=== PATIENT | female | born 1950 | race Caucasian/White ===

== ENCOUNTER → 2017-04-27 | Outpatient (CLI) | payer OTHER ==
[~2017-04-27] MED LIST: ATOR10TA88 PO; ATV1 PO; CHOL2000 PO; CLON0.5T3 PO; CLTP PO; DVN/160 PO; ESTR1CRE PV; LABE100T16 PO; LXP/10 PO; MELA3TAB7 PO; METF-384 PO; NAPR500T3 PO; NAPR550T PO; NITR1CAP32 PO; PRLSR20 PO; SYN88 PO
--- NOTE | 2017-04-27 14:15 | MAMMOGRAPHY REPORT ---
UNILATERAL RIGHT DIGITAL SCREENING MAMMOGRAM TOMOSYNTHESIS WITH CAD: 04/27/2017 CLINICAL HISTORY: Routine screening. Patient has no complaints. TECHNIQUE: Right breast tomosynthesis in addition to standard 2D mammography was performed. Current jerald bonilla was also evaluated with a Computer Aided Detection (CAD) system. COMPARISON: Comparison is made to exams dated: 04/26/2016 mammogram, 04/14/2015 mammogram, 04/12/2014 m ammogram, 03/15/2013 mammogram, 03/13/2012 mammogram, and 03/11/2011 mammogram - [facility] enter. BREAST COMPOSITION: The tissue of the right breast is heterogeneously dense, which may obscure small masses. FINDINGS: The parenchymal pattern is similar to prior exams. No developing mass, architectural dist ortion or cluster of suspicious microcalcifications is seen. IMPRESSION: ACR BI-RADS CATEGORY 2: BENIGN There is no mammographic evidence of malignancy. A 1 year screening mammogram is recommended. The pa tient will receive written notification of the results. Approximately 10% of breast cancers are not detected with mammography. A negative mammographic report should not delay biopsy if a clinically suggestive mass is present. Anuja Howard M.D. ay/:04/27/2017 13:15:47 Mold Machine Operator: Dina PILLAIR, M, [facility] letter sent: Normal 1/2 BI-RADS Code: ACR BI-RADS Category 2: Benign
== END | disposition home or self-care (01) ==
LOC: C.MAMM 12:52
PROVIDERS: ATTEND Nurse Practitioner
DX: Z12.31 Encounter for screening mammogram for malignant neoplasm of breast (principal)

== ENCOUNTER 2023-04-28 10:03 | Inpatient (IN) ==
[2023-04-28 11:17] LABS: Hematocrit (blood only) 34.1 % (37.0-47.0); Hemoglobin 12.1 g/dl (12.0-16.0); Mean Corpuscular Hemoglobin 30.1 pg (25.0-34.0); Mean Corpuscular Hgb Conc 35.5 g/dL (32.0-36.0); Mean Corpuscular Volume 84.8 fL (80.0-100.0); Mean Platelet Volume 8.8 fL (9.4-12.4); Platelet Count 256 K/uL (130-400); Red Blood Count 4.02 M/uL (4.20-5.40); White Blood Count 8.63 K/ul (4.8-10.8)
--- NOTE | 2023-04-28 11:29 | Emergency Department Note ---
Impression & Plan Weakness, Lightheadedness, Vaccine reaction, Elevated troponin, Hyponatremia, Hypokalemia, Hypomagnesemia ED Provider Note ED Provider Note NAME: TRELL WHITE AGE:72 SEX: Female : 1950 ARRIVES VIA: Private vehicle INFORMANT: Patient ED PROVIDER(s): Brooke Elliott DO CHIEF COMPLAINT: Weakness, lightheadedness, status post flu shot HPI: This is a 72-year-old female who presents emerged department due to concern for increased weakness and lightheadedness after receiving her flu vaccine last evening at 1800 hrs. Patient states she had flu shots in the past and never had any adverse reaction. She states in the nursing secretary hours she felt very weak and lightheaded when she got up to use the restroom. She had asked family to help her back into bed. She states she woke then at 8:00 and could not get out of bed as she felt her legs were very heavy. She still felt very lightheaded and weak all over. She did have a fever this morning and family gave her Tylenol at 830. They states since that time she has markedly improved. Patient states she does feel as though she can move her lower extremities now and she was able to walk with assistance to the car although still feels very weak. Patient most concerned as she does have a history of multiple sclerosis. She follows with [facility] neurology. She denies focal headache, shortness of breath, chest pain, nausea/vomiting, or abdominal pain. No recent change in urine or stools. PAST MEDICAL HISTORY:See Below PAST SURGICAL HISTORY:See Below FAMILY HISTORY:See Below SOCIAL HISTORY:See Below HOME MEDICATIONS:See Below ALLERGIES:See Below VITALS:See Below PHYSICAL EXAMINATION: GENERAL: alert, well appearing, well nourished, no distress, non-toxic EYE EXAM: normal conjunctiva, PERRL and EOM's grossly intact OROPHARYNX: no exudate, no erythema, lips, buccal mucosa, and tongue normal and mucous membranes are moist NECK: supple, no nuchal rigidity, no adenopathy, non-tender LUNGS: Clear to auscultation. Normal chest wall mechanics, no w/r/r HEART: no murmurs, S1 normal and S2 normal ABDOMEN: abdomen soft, non-tender, normo-active bowel sounds, no masses, no rebound or guarding. BACK: Back is symmetrical on inspection and there is no deformity, no midline tenderness, no CVA tenderness. SKIN: no rashes, petechiae, orbruising UPPER EXTREMITIES: upper extremities are grossly normal. FROM, nml pulses b/l. LOWER EXTREMITIES: No pitting edema. FROM, nml pulses b/l. Increased weakness bilateral lower extremities, left greater than right with which patient states is usual for her with her MS NEURO EXAM: Normal sensorium, cranial nerves II-XII grossly intact, normal speech, no facial droop,nogross weakness of arms, mild gross weakness of legs. Gross sensation intact. No ataxia. Vital Signs: reviewed and remarkable Differential Diagnosis: Dehydration, vaccine reaction, electrolyte abnormality, UTI, dysrhythmia, MS flare, Guillain-Watt, as well as others were considered MEDICAL DECISION MAKING: This is a 72-year-old female who presents emerged department due to concern for possible vaccine reaction. Patient afebrile and vital signs stable. Family did report she was already improved compared to earlier this morning following Tylenol for fever and oral intake. Labs drawn and sent, IV established, patient monitored on telemetry, started on IV fluids. Patient with several electrolyte abnormalities which likely explain the weakness and lightheadedness. EKG performed as a precaution due to electrolyte abnormalities. Troponin came back significantly elevated. Patient continued to deny chest pain, shortness of breath, or palpitations on my recheck. She denies any prior cardiac history. Upon additional evaluation EKG is different compared to prior however this was from 2019. Did attempt to find more recent EKGs within the [employer] system. I discussed the case with on-call [facility] cardiology Dr. Sweet who is in agreement with plan for echo. Case then discussed with one of the [facility] hospitalist team. Dr. Sweet and the microbiology technician did come to bedside and he reviewed the EKGs additionally. After reviewing EKGs and reviewing the bedside echo he was concerned and contacted Dr. Shrestha for urgent catheterization due to concern for possible infarct versus Takotsubo's given a wall motion abnormality that was noted. Patient remained hemodynamically stable throughout. Patient was given IV magnesium and oral potassium to help with repletion. Patient's symptoms not suggestive of ACS, patient with possible vaccine related or viral myocarditis based on history. Consultation(s): 1215: Discussed with Dr. Sweet. Agrees with ordering echo. 1224: Discussed with Hailey Kramer hospitalist team. ER Treatment Provided: See below Diagnostics Interpreted By Me: -ECG: NSR at 76, nml axis, -Cardiac Monitoring: An order was placed for continuous cardiac monitoring. The monitor shows a rate of 70 with normal sinus rhythm. -Laboratory studies: As stated above and show below. -Imaging studies: [] Triage Nursing Note Reviewed Prior/Outside Records Reviewed Past Med/Surg History Medical History Anxiety Bladder incontinence Bladder retention CKD (chronic kidney disease) stage II. following with . DDD (degenerative disc disease) DM type 2 (diabetes mellitus, type 2) Dysphagia Encounter for pre-operative examination Fibromyalgia GERD (gastroesophageal reflux disease) History of breast cancer dx'd 1997. hx surgery + radiation. History of COVID-19 11/12/2022 + home test. congestion, cough, fatigue. resolved. History of gout History of skin cancer removed HLD (hyperlipidemia) Hypertension Hypothyroidism Lumbar herniated disc Multiple sclerosis Neuropathy Spinal stenosis Volvulus hx Surgical History H/O vein stripping History of colonoscopy History of D&C History of hysterectomy History of intestinal surgery History of left mastectomy denies limb restriction History of lumpectomy of left breast malignant History of lumpectomy of right breast benign History of surgery D&E S/P trigger finger release multiple Family History Other Cancer Heart disease Hypertension No family history of adverse response to anesthesia Social History Smoking Status: Former smoker Second Hand Exposure: No; Do You Dip or Chew Tobacco: No; Tobacco Cessation Education Requested by Patient: No Hx Alcohol Use: No Hx Substance Use: No Preferred Language: Arabic Communication Ability: Effective 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 Beliefs That Will Affect Care: None Current Living Situation: Spouse Other Information That Helps Us Care for You: No Feels Safe at Home: Yes Safety Concerns: Feels Safe At This Time Assistive Devices: Cane and Glasses Allergies Allergies Allergy/AdvReac Type Severity Reaction Status Date / Time Iodinated Contrast Media Allergy Severe HIVES Verified 04/19/23 13:53 oxycodone Allergy Mild hives Verified 04/19/23 13:53 Gadolinium-Containing Allergy Hives Verified 04/19/23 13:53 Contrast Medi latex Allergy itching Verified 04/19/23 13:53 Home Meds Home Medications Medication Instructions Recorded Confirmed atorvastatin 40 mg tablet (Lipitor) 40 mg PO QAM 06/19/19 04/28/23 calcium carbonate 600 mg-vitamin 1 cap PO BID 06/19/19 04/28/23 D3 5 mcg (200 unit) capsule (Calcium 600 + D(3)) clonazepam 1 mg tablet (Klonopin) 1 mg PO HS PRN Anxiety 06/19/19 04/28/23 clotrimazole-betamethasone 1 1 applic topical BID PRN Itching 06/19/19 04/28/23 %-0.05 % topical cream conjugated estrogens 0.625 mg/gram 0.625 mg vaginal 2XWK PRN Other 06/19/19 04/28/23 vaginal cream (Premarin) escitalopram oxalate 20 mg tablet 20 mg PO QAM 06/19/19 04/28/23 esomeprazole magnesium 40 mg 40 mg PO QAM 06/19/19 04/28/23 capsule,delayed release (Nexium) fluticasone propionate 50 2 spray intranasal DAILY 06/19/19 04/28/23 mcg/actuation nasal spray,suspension (Flonase Allergy Relief) gabapentin 300 mg capsule 600 mg PO HS 06/19/19 04/28/23 (Neurontin) hydrochlorothiazide 12.5 mg capsule 25 mg PO QAM 06/19/19 04/28/23 levothyroxine 75 mcg tablet 75 mcg PO QAM 06/19/19 04/28/23 (Synthroid) melatonin 5 mg tablet 5 mg PO HS PRN Sleep 06/19/19 04/28/23 metformin 1,000 mg tablet 1,000 mg PO BIDM 06/19/19 04/28/23 (Glucophage) valsartan 160 mg tablet (Diovan) 160 mg PO BID 06/19/19 04/28/23 amlodipine 10 mg tablet 10 mg PO HS 12/30/22 04/28/23 baclofen 10 mg tablet 10 mg PO TID 12/30/22 04/28/23 coenzyme Q10 30 mg capsule 30 mg PO HS 12/30/22 04/28/23 d-mannose 500 mg capsule 500 mg PO QAM 12/30/22 04/28/23 dulaglutide 0.75 mg/0.5 mL 0.75 mg subcut WK 04/28/23 04/28/23 subcutaneous pen injector (Trulicity) pyridoxine (vitamin B6) 50 mg 100 mg PO DAILY 04/28/23 04/28/23 tablet Results & Data (ED) Vital Signs Vital Signs - 24 hr 04/28/23 10:13 04/28/23 10:27 04/28/23 11:11 Temperature 36.9 C Temperature Source Oral Pulse Rate 100 H 85 Pulse Rate [Apical] Pulse Rhythm [Apical] Respiratory Rate 18 Respiratory Effort / Characteristics Respiratory Depth Respiratory Pattern Blood Pressure 101/55 L Blood Pressure [Right Arm] Blood Pressure Mean 70 Blood Pressure Mean [Right Arm] Blood Pressure Position Sitting Pulse Oximetry 96 92 Oxygen Delivery Method Room Air Room Air Oxygen Flow Rate Sepsis Recent Fever Within 48 Hours No Sepsis New/Unexplained Change in Mental Status No Sepsis Action Taken by Nursing No Action Required 04/28/23 11:12 04/28/23 12:00 04/28/23 12:30 Temperature Temperature Source Pulse Rate 77 73 Pulse Rate [Apical] 75 Pulse Rhythm [Apical] Regular Respiratory Rate 16 20 16 Respiratory Effort / Characteristics Non-Labored Respiratory Depth Normal Respiratory Pattern Regular Blood Pressure 114/61 114/59 L Blood Pressure [Right Arm] 114/60 Blood Pressure Mean 78 77 Blood Pressure Mean [Right Arm] 78 Blood Pressure Position Pulse Oximetry 92 92 94 Oxygen Delivery Method Room Air Nasal Cannula Nasal Cannula Oxygen Flow Rate 2 2 Sepsis Recent Fever Within 48 Hours Sepsis New/Unexplained Change in Mental Status Sepsis Action Taken by Nursing 04/28/23 13:00 Temperature Temperature Source Pulse Rate 76 Pulse Rate [Apical] Pulse Rhythm [Apical] Respiratory Rate 20 Respiratory Effort / Characteristics Respiratory Depth Respiratory Pattern Blood Pressure 116/67 Blood Pressure [Right Arm] Blood Pressure Mean 83 Blood Pressure Mean [Right Arm] Blood Pressure Position Pulse Oximetry 96 Oxygen Delivery Method Nasal Cannula Oxygen Flow Rate 2 Sepsis Recent Fever Within 48 Hours Sepsis New/Unexplained Change in Mental Status Sepsis Action Taken by Nursing Laboratory Data 04/28/23 10:58 04/28/23 10:58 Lab Results 04/28/23 04/28/23 04/28/23 Range/Units 10:58 10:58 10:58 WBC 8.63 (4.8-10.8) K/ul RBC 4.02 L (4.20-5.40) M/uL Hgb 12.1 (12.0-16.0) g/dl Hct 34.1 L (37.0-47.0) % MCV 84.8 (80.0-100.0) fL MCH 30.1 (25.0-34.0) pg MCHC 35.5 (32.0-36.0) g/dL RDW Std Deviation 40.0 (36.4-46.3) fL RDW Coeff of Jaydon 13.0 (11.5-14.5) % Plt Count 256 (130-400) K/uL MPV 8.8 L (9.4-12.4) fL Immature Gran % (Auto) 0.3 % Neut % (Auto) 91.7 % Lymph % (Auto) 2.0 % Bates % (Auto) 5.6 % Eos % (Auto) 0.1 % Baso % (Auto) 0.3 % Neut # (Auto) 7.91 H (1.40-6.50) K/uL Lymph # (Auto) 0.17 L (1.20-3.40) K/uL Bates # (Auto) 0.48 (0.11-0.59) K/uL Eos # (Auto) 0.01 (0.00-0.50) K/uL Baso # (Auto) 0.03 (0.00-0.20) K/uL Immature Gran # (Auto) 0.03 (0.01-0.20) K/uL ESR (0-30) mm/hr Sodium 124 L (136-145) mmol/L Potassium 3.4 L (3.5-5.1) mmol/L Chloride 90 L (98-107) mmol/L Carbon Dioxide 25 (21-32) mmol/L Anion Gap 9 (3-11) BUN 22 (6-23) mg/dl Creatinine 0.94 (0.6-1.2) mg/dl Est Cr Clr Drug Dosing 54.6 ml/min Est GFR ( Amer) 70.7 ml/min Est GFR (Non-Af Amer) 61.0 ml/min BUN/Creatinine Ratio 23.4 H (10-20) Glucose 148 H (70-99(Fasting)) mg/dl POC Glucose (70-99) mg/dl Calcium 9.8 (8.6-10.3) mg/dl Magnesium 1.5 L (1.7-2.4) mg/dl Total Bilirubin 0.5 (0.2-1.0) mg/dl AST 18 (13-39) U/L ALT 11 (7-52) U/L Alkaline Phosphatase 45 (34-104) U/L Troponin I High Sens 2282.7 H* (0-14) pg/ml Total Protein 6.3 (6.0-8.3) gm/dl Albumin 4.3 (3.4-5.0) gm/dl Globulin 2.0 L (2.5-4.0) gm/dl Albumin/Globulin Ratio 2.2 H (0.9-2) Procalcitonin (0-0.5) ng/ml TSH 0.571 (0.300-4.500) uIu/ml 04/28/23 04/28/23 04/28/23 Range/Units 10:58 10:58 13:29 WBC (4.8-10.8) K/ul RBC (4.20-5.40) M/uL Hgb (12.0-16.0) g/dl Hct (37.0-47.0) % MCV (80.0-100.0) fL MCH (25.0-34.0) pg MCHC (32.0-36.0) g/dL RDW Std Deviation (36.4-46.3) fL RDW Coeff of Jaydon (11.5-14.5) % Plt Count (130-400) K/uL MPV (9.4-12.4) fL Immature Gran % (Auto) % Neut % (Auto) % Lymph % (Auto) % Bates % (Auto) % Eos % (Auto) % Baso % (Auto) % Neut # (Auto) (1.40-6.50) K/uL Lymph # (Auto) (1.20-3.40) K/uL Bates # (Auto) (0.11-0.59) K/uL Eos # (Auto) (0.00-0.50) K/uL Baso # (Auto) (0.00-0.20) K/uL Immature Gran # (Auto) (0.01-0.20) K/uL ESR 14 (0-30) mm/hr Sodium (136-145) mmol/L Potassium (3.5-5.1) mmol/L Chloride (98-107) mmol/L Carbon Dioxide (21-32) mmol/L Anion Gap (3-11) BUN (6-23) mg/dl Creatinine (0.6-1.2) mg/dl Est Cr Clr Drug Dosing ml/min Est GFR ( Amer) ml/min Est GFR (Non-Af Amer) ml/min BUN/Creatinine Ratio (10-20) Glucose (70-99(Fasting)) mg/dl POC Glucose 123 H (70-99) mg/dl Calcium (8.6-10.3) mg/dl Magnesium (1.7-2.4) mg/dl Total Bilirubin (0.2-1.0) mg/dl AST (13-39) U/L ALT (7-52) U/L Alkaline Phosphatase (34-104) U/L Troponin I High Sens (0-14) pg/ml Total Protein (6.0-8.3) gm/dl Albumin (3.4-5.0) gm/dl Globulin (2.5-4.0) gm/dl Albumin/Globulin Ratio (0.9-2) Procalcitonin 0.27 (0-0.5) ng/ml TSH (0.300-4.500) uIu/ml Administered Medications Sodium Chloride (Nss 1000ml) 1,000 mls @ 125 mls/hr IV .Q8H SILVESTRE Stop: 05/28/23 11:44 Last Admin: 04/28/23 11:48 Dose: 125 mls/hr Documented By: CEK Insulin Aspart (Insulin Aspart Per Unit Charge) 0 units SC ACHS SILVESTRE Stop: 05/28/23 16:29 Last Admin: 04/28/23 16:54 Dose: Not Given Documented By: MTP Discontinued Medications Fentanyl Citrate (Fentanyl Citrate Pf 100 Mcg/2 Ml Vial) Confirm Administered Dose 100 mcg .ROUTE .STK-MED ONE Stop: 04/28/23 13:20 Last Increment: 04/28/23 13:48 Dose: 25 mcg Documented By: TLF Heparin Sodium (Porcine) (Heparin (Porcine) 1000 Unit/Ml 10 Ml (Hydro Plant Operator Use Only)) Confirm Administered Dose 10,000 units .ROUTE .STK-MED ONE Stop: 04/28/23 13:20 Last Admin: 04/28/23 13:48 Dose: 5,000 units Documented By: TLF Heparin Sodium/Sodium Chloride (Heparin In Nss Infusion 1000 Unit/500 Ml (2 U/Ml) Bag) Confirm Administered Dose 4,000 units IV .STK-MED ONE Stop: 04/28/23 13:20 Last Admin: 04/28/23 13:49 Dose: 4,000 units Documented By: TLF Magnesium Sulfate/Dextrose (Magnesium Sulfate / D5w) 1 gm in 100 mls @ 100 mls/hr IV NOW STA Stop: 04/28/23 12:43 Last Infusion: 04/28/23 13:09 Dose: 0 mls/hr Documented By: Admin: 04/28/23 11:49 Dose: 100 mls/hr Documented By: JAMES Magnesium Sulfate/Dextrose (Magnesium Sulfate / D5w) 1 gm in 100 mls @ 100 mls/hr IV NOW STA Stop: 04/28/23 16:08 Last Admin: 04/28/23 16:54 Dose: 100 mls/hr Documented By: MICHAEL Midazolam HCl (Midazolam Hcl 1 Mg/Ml 2ml Vial) Confirm Administered Dose 2 mg .ROUTE .STK-MED ONE Stop: 04/28/23 13:20 Last Increment: 04/28/23 13:49 Dose: 1 mg Documented By: LUKE Nicardipine HCl (Nicardipine Hcl Inj 2.5 Mg/Ml 10 Ml Amp) Confirm Administered Dose 25 mg .ROUTE .STK-MED ONE Stop: 04/28/23 13:20 Last Admin: 04/28/23 13:49 Dose: 25 mg Documented By: TLF Nitroglycerin/Dextrose (Nitroglycerin/D5w 100mcg/Ml 20ml Syr) Confirm Administered Dose 2,000 mcg .ROUTE .STK-MED ONE Stop: 04/28/23 13:21 Last Admin: 04/28/23 13:49 Dose: 2,000 mcg Documented By: TLF Ondansetron HCl (Ondansetron Inj 2 Mg/Ml 2 Ml Vial) Confirm Administered Dose 4 mg .ROUTE .STK-MED ONE Stop: 04/28/23 13:26 Last Admin: 04/28/23 13:49 Dose: 4 mg Documented By: TLF Potassium Chloride (Potassium Chloride Crtab 20 Meq Tabcr) 40 meq PO NOW STA Stop: 04/28/23 12:11 Last Admin: 04/28/23 13:10 Dose: 40 meq Documented By: DMH Potassium Chloride (Potassium Chloride Crtab 20 Meq Tabcr) 20 meq PO ONE ONE Stop: 04/28/23 16:01 Last Admin: 04/28/23 16:53 Dose: 20 meq Documented By: MTP Discharge Plan Visit Data Chief Complaint: Weakness Stated Complaint: had flu shot, weakness ED Provider: Brooke Elliott Discharge Problem: Weakness, Lightheadedness, Vaccine reaction, Elevated troponin, Hyponatremia, Hypokalemia, Hypomagnesemia Patient Disposition: Admitted As Inpatient Discharge Instructions Interventions: ED Discharge Assessment Last Done: 04/28/23 13:15
[2023-04-28 11:36] LABS: Albumin Globulin Ratio 2.2 (0.9-2); Albumin Level 4.3 gm/dl (3.4-5.0); BUN Creatinine Ratio 23.4 (10-20); Bilirubin,Total 0.5 mg/dl (0.2-1.0); Calcium 9.8 mg/dl (8.6-10.3); Creatinine Clr Calc Pharmacy 54.6 ml/min; Est GFR (African American) 70.7 ml/min; Magnesium 1.5 mg/dl (1.7-2.4); Potassium 3.4 mmol/L (3.5-5.1); Total Protein 6.3 gm/dl (6.0-8.3)
[2023-04-28] MEDS ORDERED: MAGNESIUM SULFATE / D5W 1 GM/100 ML BAG IV STA ×2 (11:44→15:09)
[2023-04-28 11:46] LABS: Basophils # (auto) 0.03 K/uL (0.00-0.20); Basophils % (auto) 0.3 %; Eosinophils # (auto) 0.01 K/uL (0.00-0.50); Eosinophils % (auto) 0.1 %; Immature Granulocytes # (auto) 0.03 K/uL (0.01-0.20); Immature Granulocytes % (auto) 0.3 %; Lymphocytes # (auto) 0.17 K/uL (1.20-3.40); Monocytes # (auto) 0.48 K/uL (0.11-0.59); Monocytes % (auto) 5.6 %; Neutrophils # (auto) 7.91 K/uL (1.40-6.50); Neutrophils % (auto) 91.7 %
[2023-04-28 11:48] LABS: Troponin I High Sensitivity 2282.7 pg/ml (0-14)
[2023-04-28] MEDS: SODIUM CHLORIDE 0.9% 1,000 ML IV SCH ×2 (11:48→21:10)
[2023-04-28] MEDS ORDERED: POTASSIUM CHLORIDE CRTAB 20 MEQ TABCR PO STA (12:10)
--- NOTE | 2023-04-28 12:30 | History & Physical Report ---
Date of Service April 28, 2023 Assessment & Plan (1) STEMI (ST elevation myocardial infarction): (2) Weakness: (3) Lightheadedness: (4) Vaccine reaction: (5) Elevated troponin: (6) Hypertension: (7) HLD (hyperlipidemia): (8) DM type 2 (diabetes mellitus, type 2): (9) CKD (chronic kidney disease): Plan: This is a 72-year-old female with PMHx of multiple sclerosis, DM type II, CKD stage III, hypertension, hyperlipidemia, hypothyroidism, history of hypona tremia, GERD, who presents to the ER with significant weakness and fatigue starting overnight. On 04/27 received a flu shot and felt that this could possibly be a reaction from the vaccination causing MS flare, she has not had a flare in years however. Approximately 3 AM she woke up and attempted to ambulate to the bathroom but felt increased weakness specifically in her legs bilaterally, and required being helped back to her family overnight. Then this morning she felt that her legs "weighed 1000 pounds each" no worse. Her family gave her some Tylenol because of having some chills/sweats overnight and brought her to the ER. Patient is found to have sodium of 124 potassium 3.4, mag of 1.5, subsequently troponin is positive at 2282.7. She denies any chest complaints, pain, shortness of breath. Patient admits that she felt nauseous around 3 AM, but it was more so this morning whenever she awoke and has been on and off throughout the morning. Her who is present at bedside reports that he gave her some Coca-Cola around 3 AM because she was shaky and thought maybe her sugar was low. Her daughter who is present at bedside reports that this morning there was again concern for shakiness and checked her blood glucose however it was 202. Due to EKG changes noted this morning compared to previous, cardiology was consulted and patient has been taken urgently to the cardiac dental laboratory supervisor for evaluation. STEMI Weakness Elevated Troponin HTN HLD - Admit to PCU after cardiac cath procedure -Stat echo was obtained in the ER, noted apex wall motion abnormalities per Dr. Sweet who is present at bedside, EKG changes in lateral leads concerning for STEMI although the patient does not complain of any specific chest pain, shortness of breath concerning for acute onset MA -Checking repeat troponin now, trending every 6H afterwards -Cardiology consulted - appreciate recs -Med rec completed - pt did not take any antihypertensives this morning - will await if any needs for changes in dosing per cardiology -A1c and lipid panel with a.m. labs -Follow blood cultures x 2, UA and urine culture, pt reports hx of difficulty starting to urinate for many years, thinks this may be due to MS Multiple sclerosis -Patient received flu vaccination yesterday on 04/27, concern for possible vaccine reaction? Could possibly be myocarditis with elevated troponin -Patient is not on any biological therapy or chronic prednisone -Checking ESR and CRP -Chronic, stable-does not appear to be acute MS flare with STEMI as above -PT/OT consults for increased weakness in legs bilaterally DM type II -Holding metformin, takes Trulicity 0.75 mg on Sundays, will hold these and use insulin sliding scale -A1c with a.m. labs, last was here 6 as reviewed per outpatient epic -Chronic, stable Hypothyroidism -Check TSH with free T4 -Continue levothyroxine -Chronic, stable Hypomagnesemia Hypokalemia Hyponatremia -Na 124, K 3.4, Mag 1.5 -Replacing electrolytes with 40 M EQ p.o. potassium, 1 g mag IV given, 1 L NSS ordered -Recheck BMP this afternoon -Acute Hx of Breast Cancer - 1997 and 2007, s/p Left mastectomy and flap reconstruction - Resolved, in remission - S/P chemotherapy and radiation therapy DVT PPx: Teds, SCDs FEN/GI: Allow HH in diabetic diet status post cardiac cath Lines/IV: 2 peripheral IV CODE STATUS: Full code Dispo: From home, lives with . Likely to remain in the hospital x 1-2 days History of Present Illness Chief Complaint: Weakness, fatigue Primary Care Provider: Carlos Alberto Brown MD This is a 72-year-old female with PMHx of multiple sclerosis, DM type II, CKD stage III, hypertension, hyperlipidemia, hypothyroidism, history of hyponatremi a, GERD, remote history of breast cancer in 1997 and in 2007 s/p Left mastectomy and flap reconstruction, who presents to the ER with significant weakness and fatigue starting overnight. Yesterday she received a flu shot and felt that this could possibly be a reaction from the vaccination causing MS flare, she has not had a flare in years however. . Approximately 3 AM she woke up and attempted to ambulate to the bathroom but felt increased weakness specifically in her legs bilaterally, and required being helped back to her family overnight. Then this morning she felt that her legs "weighed 1000 pounds each" no worse. Her family gave her some Tylenol because of having some chills/sweats overnight and brought her to the ER. Patient is found to have sodium of 124 potassium 3.4, mag of 1.5, subsequently troponin is positive at 2282.7. She denies any chest complaints, pain, shortness of breath. Patient admits that she felt nauseous around 3 AM, but it was more so this morning whenever she awoke and has been on and off throughout the morning. Her who is present at bedside reports that he gave her some Coca-Cola around 3 AM because she was shaky and thought maybe her sugar was low. Her daughter who is present at bedside reports that this morning there was again concern for shakiness and checked her blood glucose however it was 202. Due to EKG changes noted this morning compared to previous, cardiology was consulted and patient has been taken urgently to the cardiac dental laboratory supervisor for evaluation. Allergies Allergy/AdvReac Type Severity Reaction Status Date / Time Iodinated Contrast Media Allergy Severe HIVES Verified 04/19/23 13:53 oxycodone Allergy Mild hives Verified 04/19/23 13:53 Gadolinium-Containing Allergy Hives Verified 04/19/23 13:53 Contrast Medi latex Allergy itching Verified 04/19/23 13:53 Home Medications Medication Instructions Recorded Confirmed Type atorvastatin 40 mg tablet (Lipitor) 40 mg PO QAM 06/19/19 04/28/23 History calcium carbonate 600 mg-vitamin 1 cap PO BID 06/19/19 04/28/23 History D3 5 mcg (200 unit) capsule (Calcium 600 + D(3)) clonazepam 1 mg tablet (Klonopin) 1 mg PO HS PRN Anxiety 06/19/19 04/28/23 History clotrimazole-betamethasone 1 1 applic topical BID PRN Itching 06/19/19 04/28/23 History %-0.05 % topical cream conjugated estrogens 0.625 mg/gram 0.625 mg vaginal 2XWK PRN Other 06/19/19 04/28/23 History vaginal cream (Premarin) escitalopram oxalate 20 mg tablet 20 mg PO QAM 06/19/19 04/28/23 History esomeprazole magnesium 40 mg 40 mg PO QAM 06/19/19 04/28/23 History capsule,delayed release (Nexium) fluticasone propionate 50 2 spray intranasal DAILY 06/19/19 04/28/23 History mcg/actuation nasal spray,suspension (Flonase Allergy Relief) gabapentin 300 mg capsule 600 mg PO HS 06/19/19 04/28/23 History (Neurontin) hydrochlorothiazide 12.5 mg capsule 25 mg PO QAM 06/19/19 04/28/23 History levothyroxine 75 mcg tablet 75 mcg PO QAM 06/19/19 04/28/23 History (Synthroid) melatonin 5 mg tablet 5 mg PO HS PRN Sleep 06/19/19 04/28/23 History metformin 1,000 mg tablet 1,000 mg PO BIDM 06/19/19 04/28/23 History (Glucophage) valsartan 160 mg tablet (Diovan) 160 mg PO BID 06/19/19 04/28/23 History amlodipine 10 mg tablet 10 mg PO HS 12/30/22 04/28/23 History baclofen 10 mg tablet 10 mg PO TID 12/30/22 04/28/23 History coenzyme Q10 30 mg capsule 30 mg PO HS 12/30/22 04/28/23 History d-mannose 500 mg capsule 500 mg PO QAM 12/30/22 04/28/23 History dulaglutide 0.75 mg/0.5 mL 0.75 mg subcut WK 04/28/23 04/28/23 History subcutaneous pen injector (Trulicity) pyridoxine (vitamin B6) 50 mg 100 mg PO DAILY 04/28/23 04/28/23 History tablet Past Med/Surg History Medical History Anxiety Bladder incontinence Bladder retention CKD (chronic kidney disease) stage II. following with . DDD (degenerative disc disease) DM type 2 (diabetes mellitus, type 2) Dysphagia Encounter for pre-operative examination Fibromyalgia GERD (gastroesophageal reflux disease) History of breast cancer dx'd 1997. hx surgery + radiation. History of COVID-19 11/12/2022 + home test. congestion, cough, fatigue. resolved. History of gout History of skin cancer removed HLD (hyperlipidemia) Hypertension Hypothyroidism Lumbar herniated disc Multiple sclerosis Neuropathy Spinal stenosis Volvulus hx Surgical History H/O vein stripping History of colonoscopy History of D&C History of hysterectomy History of intestinal surgery History of left mastectomy denies limb restriction History of lumpectomy of left breast malignant History of lumpectomy of right breast benign History of surgery D&E S/P trigger finger release multiple Family History Other Cancer Heart disease Hypertension No family history of adverse response to anesthesia Social History Smoking Status: Former smoker Second Hand Exposure: No; Do You Dip or Chew Tobacco: No; Tobacco Cessation Education Requested by Patient: No Hx Alcohol Use: No Hx Substance Use: No Preferred Language: Albanian Communication Ability: Effective 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: No Beliefs That Will Affect Care: None Current Living Situation: Spouse Other Information That Helps Us Care for You: No Feels Safe at Home: Yes Safety Concerns: Feels Safe At This Time Assistive Devices: Cane and Glasses Review of Systems Review of Systems: Constitutional: As per HPI Eyes: No diplopia, no worsening or blurred vision ENT: normal hearing, no trouble swallowing Respiratory: No cough, sputum, dyspnea at rest or on exertion Cardiovascular: No chest pain, tightness or palpitations Abdomen: No pain, + nausea, no vomiting, diarrhea or constipation Musculoskeletal: No joint pain, calf pain, swelling Neurologic: + Generalized weakness as per HPI, no numbness/tingling, or balance problems typically, + shakiness and difficulty with gait secondary to leg weakness as per HPI Psychiatric: No anxiety or depression Skin: No rash or itch Physical Exam Physical Exam: General: awake, alert, no apparent distress Head: Normocephalic, atraumatic ENT: PERRL, EOMI, no pharyngeal exudate, mucous membranes moist Chest: Clear to auscultation, on room air, no adventitious breath sounds, + left-sided mastectomy scar, abdominal scar secondary to previous flap construction for breast Cardiac: Regular rate and rhythm, + murmur, no JVD, no carotid bruits, normal peripheral pulses, good capillary refill Abdominal: NABS x 4 quadrants, soft, nondistended, nontender to palpation, no rebound or guarding Extremities: Normal inspection, no peripheral edema or erythema, calfs nontender to palpation Psych: Normal mood and affect Neuro: AAO x 3, strength intact bilaterally and rated 5/5 in right lower extrem ity, 4/5 in the left, otherwise no motor deficits, speech is clear, no peripheral sensory deficits Results & Data Results & Data Vital Signs (Past 12 Hours) Vital Signs Temp Pulse Pulse Resp BP BP Pulse Ox 04/28/23 12:00 77 20 114/61 92 04/28/23 11:12 75 16 114/60 92 04/28/23 11:11 92 04/28/23 10:27 85 04/28/23 10:13 36.9 C 100 H 18 101/55 L 96 O2 Del Method O2 Flow Rate 04/28/23 12:00 Nasal Cannula 2 04/28/23 11:12 Room Air 04/28/23 11:11 Room Air 04/28/23 10:27 04/28/23 10:13 Room Air Laboratory Results 04/28/23 04/28/23 04/28/23 10:58 10:58 10:58 WBC RBC Hgb Hct MCV MCH MCHC RDW Std Deviation RDW Coeff of Jaydon Plt Count MPV Immature Gran % (Auto) Neut % (Auto) Lymph % (Auto) [place] % (Auto) Eos % (Auto) Baso % (Auto) Neut # (Auto) Lymph # (Auto) [place] # (Auto) Eos # (Auto) Baso # (Auto) Immature Gran # (Auto) Sodium 124 L Potassium 3.4 L Chloride 90 L Carbon Dioxide 25 Anion Gap 9 BUN 22 Creatinine 0.94 Est Cr Clr Drug Dosing 54.6 Est GFR ( Amer) 70.7 Est GFR (Non-Af Amer) 61.0 BUN/Creatinine Ratio 23.4 H Glucose 148 H Calcium 9.8 Magnesium 1.5 L Total Bilirubin 0.5 AST 18 ALT 11 Alkaline Phosphatase 45 Troponin I High Sens 2282.7 H* Total Protein 6.3 Albumin 4.3 Globulin 2.0 L Albumin/Globulin Ratio 2.2 H Procalcitonin 0.27 TSH 0.571 04/28/23 10:58 WBC 8.63 RBC 4.02 L Hgb 12.1 Hct 34.1 L MCV 84.8 MCH 30.1 MCHC 35.5 RDW Std Deviation 40.0 RDW Coeff of Jaydon 13.0 Plt Count 256 MPV 8.8 L Immature Gran % (Auto) 0.3 Neut % (Auto) 91.7 Lymph % (Auto) 2.0 [place] % (Auto) 5.6 Eos % (Auto) 0.1 Baso % (Auto) 0.3 Neut # (Auto) 7.91 H Lymph # (Auto) 0.17 L [place] # (Auto) 0.48 Eos # (Auto) 0.01 Baso # (Auto) 0.03 Immature Gran # (Auto) 0.03 Sodium Potassium Chloride Carbon Dioxide Anion Gap BUN Creatinine Est Cr Clr Drug Dosing Est GFR ( Amer) Est GFR (Non-Af Amer) BUN/Creatinine Ratio Glucose Calcium Magnesium Total Bilirubin AST ALT Alkaline Phosphatase Troponin I High Sens Total Protein Albumin Globulin Albumin/Globulin Ratio Procalcitonin TSH ECG Additional Comments: Reviewed personally showing acute changes in V1 through V6 leads with ST elevations Code Status & VTE Plan Code Status Full code-discussed with the patient and her family at bedside Supervising Physician Co-Signing Physician Notes Pt seen and examined by me, care coordinated w/ Diane Wu PA-C, pls refer to her note above for further detail. Pt is a 72 yo F with Multiple Sclerosis, DM type II, CKD stage III, hypertension, hyperlipidemia, hypothyroidism, history of hyponatremia, GERD, remote history of breast cancer in 1997 and in 2007 s/p Left mastectomy and flap reconstruction, who presents with significant weakness and fatigue starting overnight, following flu vaccination last evening. Approximately at 3 AM she woke up and attempted to ambulate to the bathroom but felt increased weakness specifically in her legs bilaterally, and required being helped back to her family overnight. Then again this morning she felt that her legs are very heavy and she was feeling worse. She has nausea overnight, and worsened this AM. She also reports having chills. Her family gave her some Tylenol for that and brought her to the ER. She has not had a MS flare in years and she does have L-sided weakness at baseline. Pt denied any chest pain or shortness of breath. Denied any dizziness/ lightheadedness. Currently laying in bed in NAD, has some nausea, and getting echo done. cardiology present at the bedside. Pt is awake alert and answering appropriately. Lungs are clear to auscultation. Heart sounds regular w/ murmur. No LE edema. Skin is warm and dry. In the ED found to have sodium of 124 potassium 3.4, mag of 1.5, and troponin elevated at 2282.7. EKG changes ( ST elev. in V1V2 V3 noted) noted this morning compared to previous, cardiology was consulted and stat Echo obtained at the bedside in the ED - showing apical wall motion abnormality -> patient was taken urgently to the cardiac dental laboratory supervisor for evaluation -> demonstrating only distal branch vessel disease, no stents were required and pt diagnosed w/ Takotsubo (ballooning cardiomyopathy). Medical management recommended and started. MD Germain
[2023-04-28] MEDS ORDERED: fentaNYL citrate PF 100 MCG/2 ML VIAL ONE (13:19)
[2023-04-28] MEDS ORDERED: niCARdipine HCL INJ 2.5 MG/ML 10 ML AMP ONE (13:19)
[2023-04-28] MEDS ORDERED: HEPARIN (PORCINE) 1000 UNIT/ML 10 ML (CATH LAB USE ONLY) ONE (13:19)
[2023-04-28] MEDS ORDERED: MIDAZOLAM HCL 1 MG/ML 2ML VIAL ONE (13:19)
--- NOTE | 2023-04-28 13:19 | Cardiology Consultation ---
Date of Consultation April 28, 2023 Assessment & Plan (1) Cardiomyopathy: (2) Abnormal EKG: (3) Elevated troponin: (4) Hypertension: Plan IMPRESSION: 72 year old female who initially presented to the ED due to profound lower extremity weakness following flu shot administration. PMH significant for Multiple sclerosis, longstanding hypertension, and type 2 DM. EKG showing acute ST segment elevation in V1-V2-V3, new apical WMA, and elevated HS troponin >2,000. Patient currently chest pain free. ASCVD risk factors include: Type 2 DM, HTN, HLD, breast ca with radiation to the chest, and former tobacco use. PLAN: Cardiomyopathy: Etiology of new cardiomyopathy yet to be determined. Takotsubo vs ischemic cause. Proceed with emergent cardiac catheterization. Hypertension: Currently well controlled. Will initiate goal directed medical therapy during admission once diagnostic study is completed. Start metoprolol succinate 12.5 mg BID for preload reduction. Hold evening dose of Valsartan- to avoid afterload reduction with LVOT gradient. Patient not examining as volume overloaded-- Discontinue HCTZ due to diuretic properties as well as hyponatremia. Hyponatremia: Electrolyte replacement per hospitalist team. Recommend potassium goal of 4.0 and mag goal of 2.[address] Sweet- will follow. Supervising Physician Co-Signing Physician Notes 72-year-old female without prior history of cardiac disease presented after an acute complaint of weakness possibly following immunization. EKG demonstrated doming ST elevation anterior leads. Troponin elevated to greater than 2000. Echocardiogram demonstrated expanded apical wall motion abnormality with hyperdynamic basilar structures. Differential diagnosis as noted above including ischemic heart disease and apical ballooning cardiomyopathy Urgent cardiac catheterization warranted and patient underwent procedure demonstrating only distal branch vessel disease Plan as above, treat underlying medical issues History of Present Illness Reason for Consultation: Elevated troponin, abnormal EKG Requesting Physician: Hailey Smith Attending Physician: Dr. Groves History of Present Illness 72-year-old female who initially presented to [facility] emergency department due to profound weakness of bilateral lower extremities following a flu vaccine ye sterday. She does carry history of multiple sclerosis with left-sided lower extremity weakness however weakness greatly increased from her baseline. Symptoms accompanied by chills and diaphoresis + nausea. No vomiting. Denies history of chest pain or dyspnea with exertion. She does not describe self as an active individual however she is able to complete all ADLs independently without difficulty. EKG obtained showing ST elevation in V1-V2-V3 Preliminary echo results showing WMA in the apex. HS tropinins elevated >2282 Sodium low at 124. Renal function stable. Potassium low and supplemented. Thyroid normal. No prior history of CAD, CVA, valvular heart disease, or rheumatic fever. Former smoker, quit in her 50s- smoked 1ppd. No alcohol use. No drug use. Past medical history: Type 2 DM HLD HTN GERD CKD Hx of breast cancer s/p left breast lumpectomy with radiation Multiple Sclerosis with left lower extremity hemiplegia Hypothyroidism Hyponatremia- follows with nephrology Hypothyroidism on replacement Former smoker, quit in her 50s (1ppd) Allergies Allergy/AdvReac Type Severity Reaction Status Date / Time Iodinated Contrast Media Allergy Severe HIVES Verified 04/19/23 13:53 oxycodone Allergy Mild hives Verified 04/19/23 13:53 Gadolinium-Containing Allergy Hives Verified 04/19/23 13:53 Contrast Medi latex Allergy itching Verified 04/19/23 13:53 Home Medications Medication Instructions Recorded Confirmed Type atorvastatin 40 mg tablet (Lipitor) 40 mg PO QAM 06/19/19 04/28/23 History calcium carbonate 600 mg-vitamin 1 cap PO BID 06/19/19 04/28/23 History D3 5 mcg (200 unit) capsule (Calcium 600 + D(3)) clonazepam 1 mg tablet (Klonopin) 1 mg PO HS PRN Anxiety 06/19/19 04/28/23 History clotrimazole-betamethasone 1 1 applic topical BID PRN Itching 06/19/19 04/28/23 History %-0.05 % topical cream conjugated estrogens 0.625 mg/gram 0.625 mg vaginal 2XWK PRN Other 06/19/19 04/28/23 History vaginal cream (Premarin) escitalopram oxalate 20 mg tablet 20 mg PO QAM 06/19/19 04/28/23 History esomeprazole magnesium 40 mg 40 mg PO QAM 06/19/19 04/28/23 History capsule,delayed release (Nexium) fluticasone propionate 50 2 spray intranasal DAILY 06/19/19 04/28/23 History mcg/actuation nasal spray,suspension (Flonase Allergy Relief) gabapentin 300 mg capsule 600 mg PO HS 06/19/19 04/28/23 History (Neurontin) hydrochlorothiazide 12.5 mg capsule 25 mg PO QAM 06/19/19 04/28/23 History levothyroxine 75 mcg tablet 75 mcg PO QAM 06/19/19 04/28/23 History (Synthroid) melatonin 5 mg tablet 5 mg PO HS PRN Sleep 06/19/19 04/28/23 History metformin 1,000 mg tablet 1,000 mg PO BIDM 06/19/19 04/28/23 History (Glucophage) pyridoxine (vitamin B6) 250 mg 500 mg PO QAM 06/19/19 04/28/23 History tablet (Vitamin B-6) valsartan 160 mg tablet (Diovan) 160 mg PO BID 06/19/19 04/28/23 History amlodipine 10 mg tablet 10 mg PO HS 12/30/22 04/28/23 History baclofen 10 mg tablet 10 mg PO TID 12/30/22 04/28/23 History coenzyme Q10 30 mg capsule 30 mg PO HS 12/30/22 04/28/23 History d-mannose 500 mg capsule 500 mg PO QAM 12/30/22 04/28/23 History dulaglutide 0.75 mg/0.5 mL 0.75 mg subcut WK 04/28/23 04/28/23 History subcutaneous pen injector (Trulicity) Patient History Medical History Anxiety Bladder incontinence Bladder retention CKD (chronic kidney disease) stage II. following with . DDD (degenerative disc disease) DM type 2 (diabetes mellitus, type 2) Dysphagia Encounter for pre-operative examination Fibromyalgia GERD (gastroesophageal reflux disease) History of breast cancer dx'd 1997. hx surgery + radiation. History of COVID-19 11/12/2022 + home test. congestion, cough, fatigue. resolved. History of gout History of skin cancer removed HLD (hyperlipidemia) Hypertension Hypothyroidism Lumbar herniated disc Multiple sclerosis Neuropathy Spinal stenosis Volvulus hx Surgical History H/O vein stripping History of colonoscopy History of D&C History of hysterectomy History of intestinal surgery History of left mastectomy denies limb restriction History of lumpectomy of left breast malignant History of lumpectomy of right breast benign History of surgery D&E S/P trigger finger release multiple Family History Other Cancer Heart disease Hypertension No family history of adverse response to anesthesia Social History Smoking Status: Never smoker Second Hand Exposure: No; Do You Dip or Chew Tobacco: No; Hx Alcohol Use: No Hx Substance Use: No Preferred Language: Niuean Communication Ability: Effective Heel Splitter Required: No Beliefs That Will Affect Care: None Current Living Situation: Spouse Feels Safe at Home: Yes Assistive Devices: Cane and Glasses Review of Systems Review of Systems: All systems reviewed & are unremarkable except as noted in HPI & below Physical Exam Constitutional: WD/WN, vitals as above no acute distress Eyes: PERRL, conjunctivae normal, anicteric sclerae Respiratory: normal respiratory effort, lungs clear to auscultation Cardiovascular: Rate/Rhythm: regular rate and regular rhythm Heart Sounds: normal S1, normal S2 and + murmur Vessels: no JVD Extremities: no edema Gastrointestinal (Abdomen): normal bowel sounds, soft, nontender, no hepatosplenomegaly Skin: no rashes, warm and dry Psychiatric: A+Ox3, euthymic affect Results & Data Vital Signs (Past 12 Hours) Vital Signs Temp Pulse Pulse Resp BP BP Pulse Ox 04/28/23 13:00 76 20 116/67 96 04/28/23 12:30 73 16 114/59 L 94 04/28/23 12:00 77 20 114/61 92 04/28/23 11:12 75 16 114/60 92 04/28/23 11:11 92 04/28/23 10:27 85 04/28/23 10:13 36.9 C 100 H 18 101/55 L 96 O2 Del Method O2 Flow Rate 04/28/23 13:00 Nasal Cannula 2 04/28/23 12:30 Nasal Cannula 2 04/28/23 12:00 Nasal Cannula 2 04/28/23 11:12 Room Air 04/28/23 11:11 Room Air 04/28/23 10:27 04/28/23 10:13 Room Air Laboratory Results Cardiac Enzymes 04/28/23 Range/Units 10:58 AST 18 (13-39) U/L Troponin I High Sens 2282.7 H* (0-14) pg/ml CBC 04/28/23 Range/Units 10:58 WBC 8.63 (4.8-10.8) K/ul RBC 4.02 L (4.20-5.40) M/uL Hgb 12.1 (12.0-16.0) g/dl Hct 34.1 L (37.0-47.0) % Plt Count 256 (130-400) K/uL Neut # (Auto) 7.91 H (1.40-6.50) K/uL Lymph # (Auto) 0.17 L (1.20-3.40) K/uL [place] # (Auto) 0.48 (0.11-0.59) K/uL Eos # (Auto) 0.01 (0.00-0.50) K/uL Baso # (Auto) 0.03 (0.00-0.20) K/uL Comprehensive Metabolic Panel 04/28/23 Range/Units 10:58 Sodium 124 L (136-145) mmol/L Potassium 3.4 L (3.5-5.1) mmol/L Chloride 90 L (98-107) mmol/L Carbon Dioxide 25 (21-32) mmol/L BUN 22 (6-23) mg/dl Creatinine 0.94 (0.6-1.2) mg/dl Glucose 148 H (70-99(Fasting)) mg/dl Calcium 9.8 (8.6-10.3) mg/dl AST 18 (13-39) U/L ALT 11 (7-52) U/L Alkaline Phosphatase 45 (34-104) U/L Total Protein 6.3 (6.0-8.3) gm/dl Albumin 4.3 (3.4-5.0) gm/dl Intake and Output 04/27/23 04/28/23 04/28/23 22:59 06:59 14:59 Intake Total 100 / 100 Balance 100 / 100 Intake: IV 100 / 100 Magnesium Sulfate / D5w 1 gm In 100 / 100 100 ml @ 100 mls/hr IV NOW STA Rx#:[id number] Other: Weight 75.6 kg Weight Measurement Method Built in [facility] Patient Weight 04/29/23 06:59 Weight 75.6 kg
[2023-04-28] MEDS ORDERED: NITROGLYCERIN/D5W 100MCG/ML 20ML SYR ONE (13:20)
[2023-04-28] MEDS ORDERED: ONDANSETRON INJ 2 MG/ML 2 ML VIAL ONE (13:25)
--- NOTE | 2023-04-28 13:32 | Pre Anesthesia Assessment ---
Date of Service April 28, 2023 Pre Sedation Assessment Vital Signs Temp Pulse Pulse Resp BP BP Pulse Ox 04/28/23 13:00 76 20 116/67 96 04/28/23 12:30 73 16 114/59 L 94 04/28/23 12:00 77 20 114/61 92 04/28/23 11:12 75 16 114/60 92 04/28/23 11:11 92 04/28/23 10:27 85 04/28/23 10:13 98.4 F 100 H 18 101/55 L 96 O2 Del Method O2 Flow Rate 04/28/23 13:00 Nasal Cannula 2 04/28/23 12:30 Nasal Cannula 2 04/28/23 12:00 Nasal Cannula 2 04/28/23 11:12 Room Air 04/28/23 11:11 Room Air 04/28/23 10:27 04/28/23 10:13 Room Air Cardiovascular RRR, no murmur, no edema Respiratory normal respiratory effort, lungs clear to auscultation Pre-Sedation Airway Assessment Smoking Status: Never smoker Hx Sleep Apnea: No Hx Difficult Intubation: No Thyromental Distance: > or= 3.5 Finger Breadths Oral Cavity: + WNL Mallampati Class: III ASA: ASA4 Procedure Planning Contraindications for Sedation: none Current Medications Reviewed: Yes Notes The planned sedation has been discussed with the patient. Informed Consent was obtained. I have identified the patient, determined the appropriateness of sedation and have assessed the patient immediately prior to the procedure. All medicine(s) and interventions are by my order.
--- NOTE | 2023-04-28 14:00 | Post Anesthesia Assessment ---
Date of Service April 28, 2023 Post Sedation Assessment Vital Signs Temp Pulse Pulse Resp BP BP Pulse Ox 04/28/23 13:00 76 20 116/67 96 04/28/23 12:30 73 16 114/59 L 94 04/28/23 12:00 77 20 114/61 92 04/28/23 11:12 75 16 114/60 92 04/28/23 11:11 92 04/28/23 10:27 85 04/28/23 10:13 98.4 F 100 H 18 101/55 L 96 O2 Del Method O2 Flow Rate 04/28/23 13:00 Nasal Cannula 2 04/28/23 12:30 Nasal Cannula 2 04/28/23 12:00 Nasal Cannula 2 04/28/23 11:12 Room Air 04/28/23 11:11 Room Air 04/28/23 10:27 04/28/23 10:13 Room Air Recovery Score Activity: Moves 4 extremities Respiration: Deep Breath/Cough Circulation: +/-20% PreAnes Value Consciousness: Fully Awake Oxygen Saturation: O2 needed for >90% Discharge Sedation Level of Care: Fast Track Phase II Post Sedation Plan On clinical assessment, the patient appears to have tolerated the sedation without complications. Patient is recovering as anticipated. Patient will continue to be monitored by nursing and may be discharged when sedation discharge criteria are met per below protocol. Upon Completions of procedure up to 15 minutes continue every 5 minute vital signs and the P.A.R. score; then discharge to a Phase I or Fast Track to Phase II per the following guidelines: * Discharge Patient to appropriate Phase II area if PAR is 8 or greater or ret urn to pre- procedure baseline. The post - procedure orders will be as directed. * If PAR score is less than 8 or not return to pre-procedure baseline then patient will follow Phase I monitoring till PAR is reached for Phase II. The Phase I may be done in procedure room or may call to secure a Phase I area. * If naloxone or flumazenil are used for reversal, hold in Phase I for continued monitoring from when last reversal dose was given for a minimum of 60 minutes or longer pending the nurse and/or physician discretion of patient condition before discharge to Phase II. Please call the Sedation Physician to re-evaluate and complete post-note for discharge to Phase II area. Do NOT discharge from procedure sedation or Phase 1 until post- sedation evaluation note is complete by procedure /sedation MD Sedation Discharge Instructions to be given to the patient at discharge to home.
--- NOTE | 2023-04-28 14:12 | Cardiac Catheterization ---
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 Cardiac Status Clinical evaluation leading to the procedure CAD Presenation: Non STEMI Anginal Classification: CCS IV Diagnostic Physicians Name: Ja Shrestah MD Closure Device Recommendations: Medical Therapy and/or Counseling Cardiac Cath Procedure Full Procedure Date April 28, 2023 Pre-Procedure Diagnosis Pre-Procedure Diagnosis: Non STEMI AUC Score AUC Score: 7 Post-Procedure Diagnosis Post-Procedure Diagnosis: Moderate CAD and Elevated Intracardiac Pressures Procedure(s) Performed Procedure(s) Performed: Coronary Angiography and Left Heart Cath Batch Unit Treater Ja Shrestha MD Repair Table Operator(s) Agile Business Analyst Estimated Blood Loss Estimated Blood Loss: 5 Medication(s) Medication(s): Fentanyl, Heparin, Lidocaine 1%, Nicardipine, Nitroglycerin and Versed Summary of Findings Indication: Suspected ACS, LV dysfunction Access: 6 Fr right radial artery Catheters: [place] Findings: LM -Short, normal caliber, no significant disease LAD -large caliber vessel, midsegment luminal irregularities. Distal vessel tapers as continues around apex. Very small apical segment (<1.5 mm) with 95% stenosis sluggish flow remainder of vessel. Circumflex -large caliber, dominant, NSTEMI disease. Small left PDA without disease. RCA -nondominant, small medium caliber, midsegment 20 to 30% disease LVEDP -28 Arterial Closure: TR band Summary: 1. No significant disease in proximal to mid major epicardial vessels. -Severe disease in very small apical LAD as wraps around apex. 2. Elevated intracardiac filling pressure Recommendations: No high risk disease to explain acute symptoms and LV dysfunction. Guideline directed therapy for nonischemic cardiomyopathy Continued ASCVD risk factor modification Diuresis per Dr. Sweet Hemodynamics Rest Ao:: 84/48/76 Final Ao: 98/56/74 LV: 109/27 Recommendations Recommendations: Medical Therapy and/or Counseling Specimens Specimens: None Radiation Exposure (mGy) 725 Contrast (mls) 50 Anesthesia Moderate 5087-0087 Procedural Complication(s) None Disposition PCU I attest to the content of the Intraoperative Record and any orders documented therein. Any exceptions are noted below. [facility] Card Cath Procedure Codes Cardiac Catheterization Procedure 1: Cardiovascular Cath Procedures: 12137 Coronaries and LHC (+/-LV) PG Care Time/CCT Total # of Minutes Spent Total Time Spent with Patient: Total time spent is greater than 50% in coordination of care (as documented) at patient's floor/unit and/or counseling patient:
[2023-04-28] MEDS ORDERED: MELATONIN 3 MG TAB PO PRN (15:52)
[2023-04-28] MEDS ORDERED: GLUCOSE 10 TAB/TUBE PO PRN (15:52)
[2023-04-28] MEDS ORDERED: ACETAMINOPHEN 325 MG TAB PO PRN (15:52)
[2023-04-28] MEDS ORDERED: CARBOHYDRATES FOR HYPOGLYCEMIA PO PRN (15:52)
[2023-04-28] MEDS ORDERED: GLUCOSE 40% GEL 15 GM TUBE PO PRN (15:52)
[2023-04-28] MEDS ORDERED: clonazePAM 1 MG TAB PO PRN (15:52)
[2023-04-28] MEDS ORDERED: ONDANSETRON INJ 2 MG/ML 2 ML VIAL IV PRN (15:52)
[2023-04-28] MEDS ORDERED: DEXTROSE 50% 50 ML SYRINGE IV PRN (15:52)
[2023-04-28] MEDS ORDERED: GLUCAGON FOR INJ 1 MG VIAL SQ PRN (15:52)
[2023-04-28] MEDS ORDERED: POTASSIUM CHLORIDE CRTAB 20 MEQ TABCR PO ONE (16:00)
[2023-04-28] MEDS: INSULIN ASPART PER UNIT CHARGE SC SCH ×3 (16:54→21:59)
[2023-04-28 17:08] LABS: C Reactive Protein 3.11 mg/dl (0-0.5)
[2023-04-28 17:15] LABS: Troponin I High Sensitivity 2450.5 pg/ml (0-14)
[2023-04-28] MEDS: CALCIUM 600MG + VIT D 400 IU TAB PO SCH (20:35)
[2023-04-28] MEDS: BACLOFEN 10 MG TAB PO SCH (20:35)
[2023-04-28] MEDS ORDERED: NON-FORMULARY MEDICATION (Coenzyme Q10 30 mg Capsule) PO SCH (21:00)
[2023-04-28] MEDS ORDERED: GABAPENTIN 300 MG CAP PO SCH (21:00)
[2023-04-28 21:42] LABS: Appearance Urine Clear (Clear); Bacteria Urine Automated 2+ (Negative); Bilirubin Urine Negative (Negative); Blood Urine Negative (Negative); Cast Urine Automated 0 /lpf (0-5); Color Urine Yellow; Epithelial Cell Urine Auto 0-5 /lpf (0-5); Glucose Urine UA Negative (Negative); Ketones Urine Negative (Negative); Leukocyte Esterase Urine 3+ (Negative); Nitrite Urine Positive (Negative); Protein Urine Negative (Negative); RBC Urine Automated 0-4 /hpf (0-4); Specific Gravity Urine 1.014 (1.000-1.030); Urobilinogen Urine Negative (Negative); WBC Urine Automated >30 /hpf (0-5); pH Urine 7.5 (4.5-7.5)
[2023-04-28] MEDS: METOPROLOL SUCC 25MG EXT REL TAB PO SCH (21:55)
[2023-04-29] MEDS: SODIUM CHLORIDE 0.9% 1,000 ML IV SCH (04:49)
[2023-04-29] MEDS ORDERED: LEVOTHYROXINE SODIUM 75 MCG TABLET PO SCH (06:30)
[2023-04-29 06:37] LABS: Hematocrit (blood only) 30.9 % (37.0-47.0); Hemoglobin 10.9 g/dl (12.0-16.0); Mean Corpuscular Hemoglobin 30.4 pg (25.0-34.0); Mean Corpuscular Hgb Conc 35.3 g/dL (32.0-36.0); Mean Corpuscular Volume 86.1 fL (80.0-100.0); Mean Platelet Volume 9.6 fL (9.4-12.4); Platelet Count 207 K/uL (130-400); RDW Coefficient of Variation 13.3 % (11.5-14.5); RDW Standard Deviation 42.1 fL (36.4-46.3); Red Blood Count 3.59 M/uL (4.20-5.40); White Blood Count 3.24 K/ul (4.8-10.8)
[2023-04-29 06:58] LABS: BUN Creatinine Ratio 17.1 (10-20); Calcium 8.8 mg/dl (8.6-10.3); Chol HDL Ratio 2.6 (0-5); Creatinine Clr Calc Pharmacy 58.8 ml/min; Est GFR (African American) 83.4 ml/min; Magnesium 2.1 mg/dl (1.7-2.4); Phosphorus 2.9 mg/dl (2.5-4.9); Potassium 4.1 mmol/L (3.5-5.1)
--- NOTE | 2023-04-29 07:33 | Cardiology Progress Note ---
Date of Service April 29, 2023 Assessment & Plan (1) Takotsubo cardiomyopathy: (2) CAD (coronary artery disease): (3) Elevated troponin: (4) Hypertension: Plan IMPRESSION: 72 year old female who initially presented to the ED due to profound lower extremity weakness following flu shot administration. PMH significant for Multiple sclerosis, longstanding hypertension, and type 2 DM. EKG showing acute ST segment elevation in V1-V2-V3, new apical WMA, and elevated HS troponin >2,000. Urgent cardiac catheterization warranted and patient underwent procedure demonstrating only distal branch vessel disease- medical management recommended. PLAN: Apical ballooning cardiomyopathy: Titrate/Initiate goal directed medical therapy-- Continue metoprolol succinate 12.5 mg BID for preload reduction. Hold Valsartan given borderline hypotension- can consider restarting as an outpatient. Not examining hypervolemic-- No diuretic therapy indicated at this time CAD: S/p cardiac cath 04/28/2023-- No significant disease in proximal to mid major epicardial vessels. Severe disease in very small apical LAD as wraps around apex. Start ASA 81 mg daily LDL 46, controlled-- continue Atorvastatin 40 mg daily Hypertension: HCTZ dc'd this admission due to hyponatremia and hypotension Home dose Valsartan on hold due to hypotension. Hyponatremia: Electrolyte replacement per hospitalist team. Recommend potassium goal of 4.0 and mag goal of 2.[address] Sweet- No further recommendations form a cardiology standpoint. Okay for discharge. Will arrange for close follow up in our office in 2 weeks with an echo completed prior. Admission and Anticipated Discharge Date Admission Date: April 28, 2023 Supervising Physician Co-Signing Physician Notes Patient seen and examined, chart, medications telemetry reviewed. Assessment as above Feels well this morning Right radial access site healing well Plan as outlined continue beta-carleen with metoprolol succinate 12.5 mg twice per day We will hold valsartan and hydrochlorothiazide Echocardiogram as an outpatient and follow-up with cardiology appointment Subjective 72-year-old female without prior history of cardiac disease presented after an acute complaint of weakness possibly following immunization. EKG demonstrated doming ST elevation anterior leads. Troponin elevated to greater than 2000. Echocardiogram demonstrated expanded apical wall motion abnormality with hyperdynamic basilar structures. Differential diagnosis as noted above including ischemic heart disease and apical ballooning cardiomyopathy Urgent cardiac catheterization warranted and patient underwent procedure demonstrating only distal branch vessel disease Cardiac cath: Findings: LM -Short, normal caliber, no significant disease LAD -large caliber vessel, midsegment luminal irregularities. Distal vessel tapers as continues around apex. Very small apical segment (<1.5 mm) with 95% stenosis sluggish flow remainder of vessel. Circumflex -large caliber, dominant, NSTEMI disease. Small left PDA without disease. RCA -nondominant, small medium caliber, midsegment 20 to 30% disease LVEDP -28 Summary: 1. No significant disease in proximal to mid major epicardial vessels. -Severe disease in very small apical LAD as wraps around apex. 2. Elevated intracardiac filling pressure -Medical management recommended: Metoprolol succinate 12.5 mg BID started. Valsartan reduced to 160 mg daily (previously 160 mg BID) and ultimately held due to hypotension. HCTZ stopped due hyponatremia. 04/29/2023: Upon entrance into the room patient up ambulating with a walker- getting ready to go for a walk with her in the love. No acute concerns No chest pain, dyspnea, nausea, or fever/chills. Lower extremity weakness improving. right radial cath site clean dry and intact without evidence of bleeding/hematoma. Eager for discharge. EKG: NSR with TWI in inferior and anterolateral leads, 63 bpm Tele: NSR 60-70s Labs: SCr normal 0.82, mild improvement in hyponatremia (124>>131), K 4.1, Mag 2.1, HS troponin 2282.7 >> 2450.5 Review of Systems Review of Systems: All systems reviewed & are unremarkable except as noted in HPI & below Physical Exam Constitutional: WD/WN, vitals as above no acute distress Eyes: PERRL, conjunctivae normal, anicteric sclerae Respiratory: normal respiratory effort, lungs clear to auscultation Cardiovascular: Rate/Rhythm: regular rate and regular rhythm Heart Sounds: normal S1, normal S2 and + murmur Vessels: no JVD Extremities: no edema (compression socks in place ) Gastrointestinal (Abdomen): normal bowel sounds, soft, nontender, no hepatosplenomegaly Skin: no rashes, warm and dry Psychiatric: A+Ox3, euthymic affect Results & Data Vital Signs (Past 12 Hours) Vital Signs Temp Pulse Pulse Resp BP BP Pulse Ox 04/29/23 03:27 36.8 C 64 18 94/55 L 90 04/28/23 23:45 37.5 C 77 16 104/61 90 04/28/23 23:25 75 04/28/23 21:54 113/67 04/28/23 19:42 36.7 C 72 18 104/67 93 O2 Del Method 04/29/23 03:27 Room Air 04/28/23 23:45 Room Air 04/28/23 23:25 04/28/23 21:54 04/28/23 19:42 Room Air Laboratory Results Cardiac Enzymes 04/28/23 04/28/23 Range/Units 10:58 16:06 AST 18 (13-39) U/L Troponin I High Sens 2282.7 H* 2450.5 H* (0-14) pg/ml Lipids 04/29/23 Range/Units 05:26 Triglycerides 92 (0-150) mg/dl Cholesterol 104 (0-200) mg/dl HDL Cholesterol 40 mg/dl Cholesterol/HDL Ratio 2.6 (0-5) CBC 04/28/23 04/29/23 Range/Units 10:58 05:26 WBC 8.63 3.24 L D (4.8-10.8) K/ul RBC 4.02 L 3.59 L (4.20-5.40) M/uL Hgb 12.1 10.9 L (12.0-16.0) g/dl Hct 34.1 L 30.9 L (37.0-47.0) % Plt Count 256 207 (130-400) K/uL Neut # (Auto) 7.91 H (1.40-6.50) K/uL Lymph # (Auto) 0.17 L (1.20-3.40) K/uL [place] # (Auto) 0.48 (0.11-0.59) K/uL Eos # (Auto) 0.01 (0.00-0.50) K/uL Baso # (Auto) 0.03 (0.00-0.20) K/uL Comprehensive Metabolic Panel 04/28/23 04/29/23 Range/Units 10:58 05:26 Sodium 124 L 131 L (136-145) mmol/L Potassium 3.4 L 4.1 D (3.5-5.1) mmol/L Chloride 90 L 101 (98-107) mmol/L Carbon Dioxide 25 25 (21-32) mmol/L BUN 22 14 (6-23) mg/dl Creatinine 0.94 0.82 (0.6-1.2) mg/dl Glucose 148 H 113 H (70-99(Fasting)) mg/dl Calcium 9.8 8.8 (8.6-10.3) mg/dl AST 18 (13-39) U/L ALT 11 (7-52) U/L Alkaline Phosphatase 45 (34-104) U/L Total Protein 6.3 (6.0-8.3) gm/dl Albumin 4.3 (3.4-5.0) gm/dl Intake and Output 04/28/23 04/29/23 04/29/23 22:59 06:59 14:59 Intake Total 1100 / 2456.25 1256.25 / 2456.25 402 / 402 Output Total 1200 / 1200 Balance 1100 / 1256.25 56.25 / 1256.25 402 / 402 Intake: IV 1100 / 2156.25 956.25 / 2156.25 402 / 402 Magnesium Sulfate / D5w 1 gm In 100 / 100 100 ml @ 100 mls/hr IV NOW STA Rx#:[id number] Sodium Chloride 0.9% 1000ML 1, 1000 / 1956.25 956.25 / 1956.25 402 / 402 000 ml @ 125 mls/hr IV .Q8H [facility] Rx#:[id number] Oral 300 / 300 Output: Urine 1200 / 1200 Other: Weight 69.5 kg 69.5 kg Weight Measurement Method Built in [facility] Built in [facility]
[2023-04-29 07:39] LABS: Estimated Average Glucose 126 mg/dl
[2023-04-29] MEDS: INSULIN ASPART PER UNIT CHARGE SC SCH (07:51)
[2023-04-29] MEDS: METOPROLOL SUCC 25MG EXT REL TAB PO SCH (07:54)
[2023-04-29] MEDS: CALCIUM 600MG + VIT D 400 IU TAB PO SCH (07:55)
[2023-04-29] MEDS: BACLOFEN 10 MG TAB PO SCH (07:55)
[2023-04-29] MEDS ORDERED: FLUTICASONE PROPIONATE NA SPR 16 GM BTL SCH (09:00)
[2023-04-29] MEDS ORDERED: PYRIDOXINE HCL 50 MG TAB PO SCH (09:00)
[2023-04-29] MEDS ORDERED: ASPIRIN 81 MG ECTAB PO SCH (09:00)
[2023-04-29] MEDS ORDERED: ESCITALOPRAM OXALATE 20 MG TAB PO SCH (09:00)
[2023-04-29] MEDS ORDERED: PANTOprazole 40 MG TAB PO SCH (09:00)
[2023-04-29] MEDS ORDERED: ATORVASTATIN 40 MG TAB PO SCH (09:00)
[2023-04-29] MEDS ORDERED: POLYETHYLENE (MIRALAX) 17 GM PACK PO SCH (09:00)
--- NOTE | 2023-04-29 12:42 | Discharge Summary ---
Date of Service April 29, 2023 Admission HPI Per Admitting Provider This is a 72-year-old female with PMHx of multiple sclerosis, DM type II, CKD stage III, hypertension, hyperlipidemia, hypothyroidism, history of hyponatremia, GERD, remote history of breast cancer in 1997 and in 2007 s/p Left mastectomy and flap reconstruction, who presents to the ER with significant weakness and fatigue starting overnight. Yesterday she received a flu shot and felt that this could possibly be a reaction from the vaccination causing MS flare, she has not had a flare in years however. . Approximately 3 AM she woke up and attempted to ambulate to the bathroom but felt increased weakness spec ifically in her legs bilaterally, and required being helped back to her family overnight. Then this morning she felt that her legs "weighed 1000 pounds each" no worse. Her family gave her some Tylenol because of having some chills/sweats overnight and brought her to the ER. Patient is found to have sodium of 124 potassium 3.4, mag of 1.5, subsequently troponin is positive at 2282.7. She denies any chest complaints, pain, shortness of breath. Patient admits that she felt nauseous around 3 AM, but it was more so this morning whenever she awoke and has been on and off throughout the morning. Her who is present at bedside reports that he gave her some Coca-Cola around 3 AM because she was shaky and thought maybe her sugar was low. Her daughter who is present at bedside reports that this morning there was again concern for shakiness and checked her blood glucose however it was 202. Due to EKG changes noted this morning compared to previous, cardiology was consulted and patient has been taken urgently to the cardiac labor and delivery nurse for evaluation. Admission Exam Per Admitting Provider General: awake, alert, no apparent distress Head: Normocephalic, atraumatic ENT: PERRL, EOMI, no pharyngeal exudate, mucous membranes moist Chest: Clear to auscultation, on room air, no adventitious breath sounds, + left-sided mastectomy scar, abdominal scar secondary to previous flap construction for breast Cardiac: Regular rate and rhythm, + murmur, no JVD, no carotid bruits, normal peripheral pulses, good capillary refill Abdominal: NABS x 4 quadrants, soft, nondistended, nontender to palpation, no rebound or guarding Extremities: Normal inspection, no peripheral edema or erythema, calfs nontender to palpation Psych: Normal mood and affect Neuro: AAO x 3, strength intact bilaterally and rated 5/5 in right lower extremity, 4/5 in the left, otherwise no motor deficits, speech is clear, no peripheral sensory deficits Principal Diagnosis Takotsubo cardiomyopathy Coronary artery disease Hypertension Discharge Exam Constitutional: WD/WN, vitals as above, NAD, sitting up in bed, pleasant, conversing easily Respiratory: Bilateral vesicular breath sound. Cardiovascular: RRR, no murmur, no edema Vessels: no JVD or carotid bruit Chest: normal inspection of chest Abdomen: normal bowel sounds, soft, nontender, no hepatosplenomegaly Musculoskeletal: no cyanosis or clubbing, extremities motor strength 5/5 Skin: no rashes, warm and dry normal turgor Neurologic: PERRL, EOMI, accommodation nl, no face palsy, no dysarthria CN's II- XI intact bilaterally and moves all extremities Psychiatric: A+Ox3, euthymic affect Discharge Data Allergies Allergy/AdvReac Type Severity Reaction Status Date / Time Iodinated Contrast Media Allergy Severe HIVES Verified 04/19/23 13:53 oxycodone Allergy Mild hives Verified 04/19/23 13:53 Gadolinium-Containing Allergy Hives Verified 04/19/23 13:53 Contrast Medi latex Allergy itching Verified 04/19/23 13:53 Consultations 04/28/23 12:28 ED Decision to Admit Stat 04/28/23 15:52 Consult Cardiology Routine Consult Mangle Catcher Routine Procedures Performed Operation Date: 04/28/23 13:00 Actual Procedures p Cath, Left with Cors and Vent - Sreedhar Shrestha MD s Cineradiography w/Routine Exam - Sreedhar Shrestha MD Ordered Studies 04/28/23 13:06 CL Cath Imgs for PACS use only Stat Hospital Course (1) Takotsubo cardiomyopathy: (2) Weakness: (3) Lightheadedness: (4) Vaccine reaction: (5) Elevated troponin: (6) Hypertension: (7) HLD (hyperlipidemia): (8) DM type 2 (diabetes mellitus, type 2): (9) CKD (chronic kidney disease): This is a 72-year-old female with PMHx of multiple sclerosis, DM type II, CKD stage III, hypertension, hyperlipidemia, hypothyroidism, history of hyponatremia, GERD, who presents to the ER with significant weakness and fatigue starting overnight. Patient had received flu shot a day prior to the admission. EKG showed acute ST elevation in V1 to V3. Her echocardiogram showed large mildly expanded apical wall motion abnormality. EF of 55 to 60%. Her sodium was 124 on admission. Improved with 130. Patient underwent urgent cardiac catheterization which showed only distal branch vessel disease. Cardiology was consulted for comanagement. Cardiology recommended starting metoprolol 12.5 mg twice daily. Her hydrochlorothiazide was stopped at discharge. Valsartan and amlodipine were kept on hold at discharge due to low blood pressure. She is on aspirin 81 mg once a day. Patient to follow-up with cardiology with follow-up echocardiogram in 2 weeks. Also, patient to follow-up with PCP. Please note the above document was generated using voice recognition software. It may contain grammatical, syntax or spelling errors. Any formal questions or concerns about the content, text or information contained within the body of this dictation should be directly addressed to the provider for clarification Total Time Total Time Spent Total Time Spent (In Minutes): 45 Total Time Includes: Examination of the Patient, Discharge Planning, Medication Reconciliation, Communication With Other Providers and Other Discharge Plan Discharge Items Patient Disposition: Home - Self-Care Reason For Visit: STEMI, S/P HEART CATH Discharge Diagnosis: Takotsubo cardiomyopathy Activity: Resume your previous activity Non-emergency contact: Primary Care Provider Call non-emergency contact if: you have any medication questions Follow-up/Referrals: Carlos Alberto Brown MD [Primary Care Provider] - (Date & Time 05/05/2023 1:20 PM Provider Nima Lindsay MD Department Family Medicine [facility] ) Ana Lilia Nuñez CRNP [Nurse Practitioner] - (The Cardiology office will contact you for a follow up appointment.) Diet: Regular Addtl Attending Provider Instructions: You were admitted to the hospital for concern of a heart attack. You underwent urgent cardiac catheterization by Dr. Shrestha on April 28, 2023 which showed some coronary artery disease in the small vessels of the heart. The echocardiogram showed stress-induced cardiomyopathy. The most likely cause for your symptoms are due to stress reaction from the flu shot. The following medication changes are recommended by the demonstrator sewing techniques: 1) Stop taking hydrochlorothiazide as is resulted in low blood sodium. 2) start taking metoprolol 12.5 mg twice a day. 3) start taking aspirin 81 mg. For now, hold off on taking amlodipine and valsartan as your blood pressure is on the lower end. Please continue to measure your blood pressure as you are doing at home. Please measure your blood pressure on a sitting position on a chair after a 5-minute rest with both feet on the ground and your arm rested. If your blood pressure started to rise up to greater than 130/80 consistently for 2 days ; you can restart taking valsartan. Amlodipine is also currently on hold; if your blood pressure keep rising up while you are on both valsartan and metoprolol; you can start taking amlodipine. An appointment has been set up with a primary care doctor for May 05. You will need echocardiogram to be done in 2 weeks An appointment will be set up by the cardiology team for follow-up echocardiogram. Pending Studies at Discharge: No Stand-Alone Forms: My [facility] [employer], Smoking Cessation Medications and DC Order Prescriptions: New aspirin 81 mg Tablet,Delayed Release (Dr/Ec) 81 mg PO QAM Qty: 30 0RF metoprolol succinate 25 mg Tablet Extended Release 24 Hr 12.5 mg PO BID Qty: 60 0RF Continued atorvastatin [Lipitor] 40 mg tablet 40 mg PO QAM clonazepam [Klonopin] 1 mg tablet 1 mg PO HS PRN (Reason: Anxiety) levothyroxine [Synthroid] 75 mcg tablet 75 mcg PO QAM Premarin 0.625 mg/gram Cream 0.625 mg VAGINAL 2XWK PRN (Reason: Other) Patient Comments: does not always take metformin [Glucophage] 1,000 mg tablet 1,000 mg PO BIDM esomeprazole magnesium [Nexium] 40 mg capsule,delayed release(DR/EC) 40 mg PO QAM clotrimazole-betamethasone 1-0.05 % Cream 1 applic TOPICAL BID PRN (Reason: Itching) gabapentin [Neurontin] 300 mg capsule 600 mg PO HS fluticasone propionate [Flonase Allergy Relief] 50 mcg/actuation [place],Suspension 2 spray INTRANASAL DAILY escitalopram oxalate 20 mg Tablet 20 mg PO QAM Calcium 600 + D(3) 600 mg calcium- 200 unit Capsule 1 cap PO BID melatonin 5 mg Tablet 5 mg PO HS PRN (Reason: Sleep) baclofen 10 mg Tablet 10 mg PO TID coenzyme Q10 30 mg Capsule 30 mg PO HS d-mannose 500 mg Capsule 500 mg PO QAM Trulicity 0.75 mg/0.5 mL pen injector 0.75 mg SUBCUT WK Rx Instructions: usually sundays pyridoxine (vitamin B6) 50 mg Tablet 100 mg PO DAILY Held valsartan [Diovan] 160 mg tablet 160 mg PO BID Hold Instructions: Resume on 05/05/23. Hold till your primary care doctor sees you. amlodipine 10 mg Tablet 10 mg PO HS Hold Instructions: Resume on 05/05/23. Hold till your primary care doctor sees you. Discontinued hydrochlorothiazide 12.5 mg capsule 25 mg PO QAM Discharge Orders: Discharge Order (Routine); Ordered 04/29/23 Ordered By: Kody Olson/Other Patient Handouts: Managing Type 2 Diabetes Admission Data Admit Date/Time: 04/28/23 13:34 Attending Provider: Kody Pretson Admit Provider: Talon Groves Primary Care Provider: Carlos Alberto Brown Other Providers: Talon Groves ; Nick Sweet ; Sourav Patricia Other Interventions: Discharge Summary Assessment (RN) Last Done: 04/29/23 11:02
--- NOTE | 2023-05-02 14:38 | Electrocardiogram Report ---
Test Reason : Blood Pressure : / mmHG Vent. Rate : 076 BPM Atrial Rate : 076 BPM P-R Int : 154 ms QRS Dur : 088 ms QT Int : 382 ms P-R-T Axes : 062 -12 052 degrees QTc Int : 429 ms Normal sinus rhythm ST elevation, consider anterior injury When compared with ECG of 19-JUN-2019 21:06, Criteria for Septal infarct are no longer Present ST elevation now present in Anterior leads T wave inversion no longer evident in Inferior leads Confirmed by Marcus Wyatt ([id number]) on 05/02/2023 2:38:16 PM Referred By: REFERRED SELF Confirmed By:Marcus Wyatt
--- NOTE | 2023-05-02 14:46 | Electrocardiogram Report ---
Test Reason : Blood Pressure : / mmHG Vent. Rate : 071 BPM Atrial Rate : 071 BPM P-R Int : 162 ms QRS Dur : 084 ms QT Int : 410 ms P-R-T Axes : 062 009 046 degrees QTc Int : 445 ms Normal sinus rhythm Cannot rule out Anterior infarct , age undetermined Abnormal ECG When compared with ECG of 28-APR-2023 11:18, No significant change was found Confirmed by Marcus Wyatt ([id number]) on 05/02/2023 2:46:21 PM Referred By: REFERRED SELF Confirmed By:Marcus Wyatt
--- NOTE | 2023-05-02 16:04 | Electrocardiogram Report ---
Test Reason : Blood Pressure : / mmHG Vent. Rate : 063 BPM Atrial Rate : 063 BPM P-R Int : 174 ms QRS Dur : 084 ms QT Int : 456 ms P-R-T Axes : 056 006 -60 degrees QTc Int : 466 ms Normal sinus rhythm T wave abnormality, consider inferior ischemia T wave abnormality, consider anterior ischemia Abnormal ECG When compared with ECG of 28-APR-2023 13:08, ST no longer elevated in Anterior leads T wave inversion now evident in Inferior leads T wave inversion now evident in Anterior leads Confirmed by Marcus Wyatt ([id number]) on 05/02/2023 4:03:41 PM Referred By: REFERRED SELF Confirmed By:Marcus Wyatt
== END 2023-04-29 12:04 | disposition home or self-care (01) | DRG 287 ==
LOC: ED 10:03 → 2S 13:15 → SUATTDRO 13:34

== ENCOUNTER 2024-04-12 21:38 | Inpatient (IN) ==
--- NOTE | 2024-04-12 22:13 | Emergency Department Note ---
Impression & Plan Headache, Weakness, Stroke-like symptoms, Acute UTI (urinary tract infection) ED Provider Note ED Provider Note NAME: TRELL WHITE AGE:73 SEX: Female : 1950 ARRIVES VIA: private vehicle INFORMANT: Patient ED PROVIDER(s): Brooke Elliott DO CHIEF COMPLAINT: headache, weakness HPI: This is a 73-year-old female brought in by due to concern for headache, weakness, difficulty speaking. Patient states she awoke this morning with a headache and felt more tired throughout the day. confirms this at bedside. He then states at 730 this evening she began having difficulty speaking and appeared more off balance compared to normal. No prior similar history. She denies any recent change in medications, recent trauma or injury, or recent illness. She denies any fevers or chills. She states she did not have a normal appetite during the day. Patient does have difficulty providing history due to dysarthria and expressive aphasia and helps. Patient denies chest pain, shortness of breath, abdominal pain, vomiting or diarrhea. PAST MEDICAL HISTORY:See Below PAST SURGICAL HISTORY:See Below FAMILY HISTORY:See Below SOCIAL HISTORY:See Below HOME MEDICATIONS:See Below ALLERGIES:See Below VITALS:See Below PHYSICAL EXAMINATION: GENERAL: alert, well appearing, well nourished, no distress, non-toxic EYE EXAM: normal conjunctiva, PERRL and EOM's grossly intact OROPHARYNX: no exudate, no erythema, lips, buccal mucosa, and tongue normal and mucous membranes are moist NECK: supple, no nuchal rigidity, no adenopathy, non-tender LUNGS: Clear to auscultation. Normal chest wall mechanics, no w/r/r HEART: no murmurs, S1 normal and S2 normal ABDOMEN: abdomen soft, non-tender, normo-active bowel sounds, no masses, no rebound or guarding. BACK: Back is symmetrical on inspection and there is no deformity, no midline tenderness, no CVA tenderness. SKIN: no rashes, petechiae, orbruising UPPER EXTREMITIES: upper extremities are grossly normal. FROM, nml pulses b/l. LOWER EXTREMITIES: No pitting edema. FROM, nml pulses b/l. NEURO EXAM: Normal sensorium, cranial nerves II-XII grossly intact, patient with difficulty with word finding as well as pronouncing certain words, no facial droop,nogross weakness of arms, no gross weakness of legs. Gross sensation intact. No ataxia. Negative pronator drift. Patient subjectively reports feeling the right side of her body is weaker and heavier than the left, has been feels there is a mild right facial droop; no gaze deviation; NIHSS 2 Vital Signs: reviewed and remarkable Differential Diagnosis: ischemic Stroke, hemorrhagic stroke, occult infection, tick borne illness, bells palsy, mass, neoplasm, migraine headache, seizure, subarachnoid hemorrhage, TIA, transient global amnesia, as well as others were considered MEDICAL DECISION MAKING: This is a 73 yo female who presents to the ER due to stroke like symptoms. Patient noted on arrival to also have fever. She complained of headache and initially stated he noted speech difficulty at 1930. A stroke alert was called by nursing staff prior to my evaluation as given onset provided by patient still within the window for TNK. Other VS stable. Labs drawn and sent, IV established, EKG and CXR performed and interpreted at bedside, and patient placed on telemetry. Blood culture, procalcitonin and lactic acid added given complicated presentation. Patient with dysarthria and word finding difficulty on exam, no obvious extremity weakness of ataxis, no gaze deviation - initially NIHSS <4. Due to initial report of CT dye allergy I discussed pretreatment vs noncontrast study alone with patient and family. They would like to perform noncon only. She was sent for noncon head which was reassuring and case discussed with vinicio Peck teleneurology. They performed an evaluation at bedside. Patient given IV tylenol for fever, cxr reassuring and nasal swab respiratory panel negative. After further discussion with neuro regarding imaging, followed by new info from daughter and additional discussion with neuro, she was sent for MR without contrast. As patient's fever improved, her stroke like symptoms resolved. Other VS stable. Labs reassuring. UA suggestive of evolving infection and patient given IV rocephin after review of prior urine culture. Patient given additional meds per neuro recs. Neuro updated once MR results available. Symptoms resolved after resolution of fever. Family updated at bedside several times. Case discussed with the hospitalist team for additional evaluation and mgmt. Given negative MR brain for TIA/CVA, possible metabolic encephalopathy or abnormal fever response given MS hx. Patient with risk factors for TIA/CVA. Mild hyponatremia noted, however I do not feel that explains patient's symptoms or fever. Mild hyperglycemia however no evidence of DKA. Consultation(s): 2244: Discussed with Liv Duong [facility] neurology. 2321: Dr. Juares evaluated patient and sent additional instructions via [employer] [employer]. Recommends additional IV fluid bolus, aspirin 325 mg, Plavix 300 mg, atorvastatin 80 mg. Recommends MRI due to IV dye allergy. Additional information obtained from daughter puts LKW at 1800 so patient not TNK candidate as she is outside the window. 2338: Due to concern for IV dye reaction we discussed urgent MR. When unique came to perform screening protocol, daughter relayed she has a reaction to gadolinium. MR unique was able to confirm prior MR's were without contrast and that she has had prior CT's with contrast. After additional discussion with neuro, they recommend getting MR brain wo and MRA head wo first, then either CTA vs US carotids. Neuro also recommended holding plavix until MR results available. They also requested they be sent MR reports when they are available. 0058: Discussed with Dr. Valle, [facility] for additional evaluation and mgmt. ER Treatment Provided: See below 2210: Discussed IV dye allergy with patient and family at bedside. We discussed pre-treatment for allergy and trial of IV dye. They would like to wait and only due noncon at this time. Diagnostics Interpreted By Me: -ECG: Normal sinus at 75, normal axis, normal intervals, no acute ST/T wave changes -Cardiac Monitoring: An order was placed for continuous cardiac monitoring. The monitor shows a rate of 70 with normal sinus rhythm. -Laboratory studies: As stated above and show below. -Imaging studies: X-ray Chest: A single view study of the chest was reviewed and was negative for cardiomegaly, focal infiltrate, effusion, pulmonary edema, or wide mediastinum. Triage Nursing Note Reviewed Prior/Outside Records Reviewed Critical Care: Critical care of 66 min performed to assess and manage high likelihood of life- threatening stroke like symptoms, involving labs and imaging performed with assessment to evaluate stroke like symptoms diagnosis with frequent reassessment. This time includes bedside time, treatment discussions with patient/family/consultants, documentation time and excludes procedure time. Past Med/Surg History Problem List (Updated 04/13/24 @ 09:41 by Favian Valle MD) Encephalopathy Acute UTI (urinary tract infection) (Acute) Stroke-like symptoms (Acute) Weakness (Acute) Headache (Acute) Takotsubo cardiomyopathy Hyponatremia (Acute) Hypokalemia (Acute) Hypomagnesemia (Acute) STEMI (ST elevation myocardial infarction) Cardiomyopathy Abnormal EKG CKD (chronic kidney disease) stage II. following with . DM type 2 (diabetes mellitus, type 2) HLD (hyperlipidemia) Hypertension Elevated troponin (Acute) Weakness (Acute) Lightheadedness (Acute) Vaccine reaction (Acute) Encounter for pre-operative examination Rotator cuff tear, left Tendinitis of right rotator cuff Medical History CAD (coronary artery disease) History of COVID-19 11/12/2022 + home test. congestion, cough, fatigue. resolved. Volvulus hx History of gout Fibromyalgia Spinal stenosis Lumbar herniated disc DDD (degenerative disc disease) Bladder retention Bladder incontinence Hypothyroidism History of skin cancer removed History of breast cancer dx'd 1997. hx surgery + radiation. Anxiety Neuropathy GERD (gastroesophageal reflux disease) Dysphagia Multiple sclerosis Surgical History History of hysterectomy History of intestinal surgery S/P trigger finger release multiple History of surgery D&E History of D&C History of lumpectomy of right breast benign H/O vein stripping History of left mastectomy denies limb restriction History of lumpectomy of left breast malignant History of colonoscopy Family History Other Cancer Heart disease Hypertension No family history of adverse response to anesthesia Social History Smoking Status: Former smoker Second Hand Exposure: No; Do You Dip or Chew Tobacco: No; Hx Alcohol Use: No Hx Substance Use: No Preferred Language: Micronesian Communication Ability: Effective Consumer Lending Manager Required: No Beliefs That Will Affect Care: None Current Living Situation: Spouse Other Information That Helps Us Care for You: No Feels Safe at Home: Yes Safety Concerns: Feels Safe At This Time Assistive Devices: Cane and Walker Allergies Allergies Allergy/AdvReac Type Severity Reaction Status Date / Time oxycodone Allergy Mild hives Verified 04/13/24 00:45 Gadolinium-Containing Allergy Hives Verified 04/13/24 00:45 Contrast Medi latex Allergy itching Verified 04/13/24 00:45 Home Meds Home Medications Medication Instructions Recorded Confirmed amlodipine 10 mg tablet 10 mg PO QAM 04/13/24 04/13/24 aspirin 81 mg tablet,delayed 81 mg PO QAM 04/13/24 04/13/24 release atorvastatin 40 mg tablet 40 mg PO DAILY 04/13/24 04/13/24 baclofen 10 mg tablet 10 mg PO TID 04/13/24 04/13/24 clonazepam 1 mg tablet 1 mg PO HS PRN Insomnia 04/13/24 04/13/24 coenzyme Q10 100 mg capsule 100 mg PO DAILY 04/13/24 04/13/24 (CoQ-10) conjugated estrogens 0.625 mg/gram 1 applic vaginal .WEEK 04/13/24 04/13/24 vaginal cream (Premarin) d-mannose 500 mg capsule 500 mg PO BID 04/13/24 04/13/24 dulaglutide 0.75 mg/0.5 mL 0.75 mg subcut .WEEK 04/13/24 04/13/24 subcutaneous pen injector (Trulicity) escitalopram oxalate 20 mg tablet 20 mg PO QAM 04/13/24 04/13/24 esomeprazole magnesium 40 mg 40 mg PO QAM 04/13/24 04/13/24 capsule,delayed release gabapentin 600 mg tablet 600 mg PO HS 04/13/24 04/13/24 metformin 1,000 mg tablet 1,000 mg PO BID 04/13/24 04/13/24 metoprolol succinate 25 mg 12.5 mg PO AMHS 04/13/24 04/13/24 tablet,extended release 24 hr spironolactone 25 mg tablet 25 mg PO QAM 04/13/24 04/13/24 turmeric root extract 500 mg tablet 500 mg PO QPM 04/13/24 04/13/24 valsartan 160 mg tablet 160 mg PO HS 04/13/24 04/13/24 Results & Data (ED) Vital Signs Vital Signs - 24 hr 04/12/24 21:46 04/12/24 21:46 04/12/24 22:00 Temperature Temperature Source Pulse Rate 75 Pulse Rate [Apical] Pulse Rate from SpO2 Sensor Pulse Rhythm [Apical] Pulse Strength [Apical] Respiratory Rate Respiratory Effort / Characteristics Respiratory Depth Respiratory Pattern Blood Pressure 157/89 H 172/97 H Blood Pressure Mean 134 131 Pulse Oximetry Oxygen Delivery Method Sepsis Recent Fever Within 48 Hours Sepsis New/Unexplained Change in Mental Status Sepsis Action Taken by Nursing 04/12/24 22:00 04/12/24 22:01 04/12/24 22:03 Temperature 39.6 C H Temperature Source Oral Pulse Rate 72 72 Pulse Rate [Apical] Pulse Rate from SpO2 Sensor 73 72 Pulse Rhythm [Apical] Pulse Strength [Apical] Respiratory Rate 20 22 Respiratory Effort / Characteristics Non-Labored Spontaneous Respiratory Depth Normal Respiratory Pattern Regular Blood Pressure 157/89 H Blood Pressure Mean 111 Pulse Oximetry 95 94 95 Oxygen Delivery Method Room Air Sepsis Recent Fever Within 48 Hours Yes Sepsis New/Unexplained Change in Mental Status Yes Sepsis Action Taken by Nursing Physician Notified 04/12/24 22:06 04/12/24 22:06 04/12/24 22:23 Temperature Temperature Source Pulse Rate Pulse Rate [Apical] 70 Pulse Rate from SpO2 Sensor Pulse Rhythm [Apical] Regular Pulse Strength [Apical] Normal Respiratory Rate 19 Respiratory Effort / Characteristics Non-Labored Spontaneous Respiratory Depth Normal Respiratory Pattern Regular Blood Pressure 164/80 H Blood Pressure Mean 135 Pulse Oximetry 94 94 Oxygen Delivery Method Room Air Room Air Sepsis Recent Fever Within 48 Hours Sepsis New/Unexplained Change in Mental Status Sepsis Action Taken by Nursing 04/12/24 22:27 04/12/24 22:30 04/12/24 22:30 Temperature Temperature Source Pulse Rate 73 73 Pulse Rate [Apical] Pulse Rate from SpO2 Sensor 74 73 Pulse Rhythm [Apical] Pulse Strength [Apical] Respiratory Rate 23 19 Respiratory Effort / Characteristics Respiratory Depth Respiratory Pattern Blood Pressure 160/85 H Blood Pressure Mean 133 Pulse Oximetry 95 93 Oxygen Delivery Method Sepsis Recent Fever Within 48 Hours Sepsis New/Unexplained Change in Mental Status Sepsis Action Taken by Nursing 04/12/24 22:36 04/12/24 22:45 04/12/24 23:00 Temperature Temperature Source Pulse Rate 75 Pulse Rate [Apical] Pulse Rate from SpO2 Sensor 75 Pulse Rhythm [Apical] Pulse Strength [Apical] Respiratory Rate 17 Respiratory Effort / Characteristics Respiratory Depth Respiratory Pattern Blood Pressure 160/80 H 149/106 H Blood Pressure Mean 98 120 Pulse Oximetry 96 Oxygen Delivery Method Sepsis Recent Fever Within 48 Hours Sepsis New/Unexplained Change in Mental Status Sepsis Action Taken by Nursing 04/12/24 23:03 04/12/24 23:03 04/12/24 23:06 Temperature 38.7 C H Temperature Source Oral Pulse Rate 75 76 Pulse Rate [Apical] Pulse Rate from SpO2 Sensor 75 75 Pulse Rhythm [Apical] Pulse Strength [Apical] Respiratory Rate 22 23 Respiratory Effort / Characteristics Respiratory Depth Respiratory Pattern Blood Pressure Blood Pressure Mean Pulse Oximetry 96 92 Oxygen Delivery Method Sepsis Recent Fever Within 48 Hours Sepsis New/Unexplained Change in Mental Status Sepsis Action Taken by Nursing 04/12/24 23:09 04/12/24 23:15 04/12/24 23:15 Temperature Temperature Source Pulse Rate Pulse Rate [Apical] Pulse Rate from SpO2 Sensor Pulse Rhythm [Apical] Pulse Strength [Apical] Respiratory Rate Respiratory Effort / Characteristics Respiratory Depth Respiratory Pattern Blood Pressure 146/78 H 138/87 138/87 Blood Pressure Mean 125 101 101 Pulse Oximetry Oxygen Delivery Method Sepsis Recent Fever Within 48 Hours Sepsis New/Unexplained Change in Mental Status Sepsis Action Taken by Nursing 04/12/24 23:15 04/12/24 23:21 04/12/24 23:30 Temperature Temperature Source Pulse Rate 75 74 74 Pulse Rate [Apical] Pulse Rate from SpO2 Sensor 75 74 74 Pulse Rhythm [Apical] Pulse Strength [Apical] Respiratory Rate 19 21 22 Respiratory Effort / Characteristics Respiratory Depth Respiratory Pattern Blood Pressure Blood Pressure Mean Pulse Oximetry 91 92 91 Oxygen Delivery Method Sepsis Recent Fever Within 48 Hours Sepsis New/Unexplained Change in Mental Status Sepsis Action Taken by Nursing 04/12/24 23:30 04/12/24 23:45 04/12/24 23:48 Temperature Temperature Source Pulse Rate 73 Pulse Rate [Apical] Pulse Rate from SpO2 Sensor 73 Pulse Rhythm [Apical] Pulse Strength [Apical] Respiratory Rate 23 Respiratory Effort / Characteristics Respiratory Depth Respiratory Pattern Blood Pressure 140/77 135/80 Blood Pressure Mean 121 99 Pulse Oximetry 93 Oxygen Delivery Method Sepsis Recent Fever Within 48 Hours Sepsis New/Unexplained Change in Mental Status Sepsis Action Taken by Nursing 04/12/24 23:51 04/12/24 23:57 04/13/24 00:00 Temperature Temperature Source Pulse Rate 71 70 Pulse Rate [Apical] 72 Pulse Rate from SpO2 Sensor 71 70 Pulse Rhythm [Apical] Regular Pulse Strength [Apical] Normal Respiratory Rate 20 21 20 Respiratory Effort / Characteristics Non-Labored Spontaneous Respiratory Depth Normal Respiratory Pattern Regular Blood Pressure Blood Pressure Mean Pulse Oximetry 93 94 94 Oxygen Delivery Method Room Air Sepsis Recent Fever Within 48 Hours Sepsis New/Unexplained Change in Mental Status Sepsis Action Taken by Nursing 04/13/24 00:00 04/13/24 00:00 04/13/24 00:06 Temperature Temperature Source Pulse Rate 71 Pulse Rate [Apical] Pulse Rate from SpO2 Sensor 71 Pulse Rhythm [Apical] Pulse Strength [Apical] Respiratory Rate 20 Respiratory Effort / Characteristics Respiratory Depth Respiratory Pattern Blood Pressure 142/81 H 142/81 H Blood Pressure Mean 113 113 Pulse Oximetry 95 Oxygen Delivery Method Sepsis Recent Fever Within 48 Hours Sepsis New/Unexplained Change in Mental Status Sepsis Action Taken by Nursing 04/13/24 00:15 04/13/24 00:15 04/13/24 00:15 Temperature Temperature Source Pulse Rate 70 Pulse Rate [Apical] Pulse Rate from SpO2 Sensor 69 Pulse Rhythm [Apical] Pulse Strength [Apical] Respiratory Rate 19 Respiratory Effort / Characteristics Respiratory Depth Respiratory Pattern Blood Pressure 140/75 140/75 Blood Pressure Mean 110 110 Pulse Oximetry 94 Oxygen Delivery Method Sepsis Recent Fever Within 48 Hours Sepsis New/Unexplained Change in Mental Status Sepsis Action Taken by Nursing 04/13/24 00:15 04/13/24 00:15 04/13/24 00:18 Temperature Temperature Source Pulse Rate 71 Pulse Rate [Apical] Pulse Rate from SpO2 Sensor 71 Pulse Rhythm [Apical] Pulse Strength [Apical] Respiratory Rate 23 Respiratory Effort / Characteristics Respiratory Depth Respiratory Pattern Blood Pressure 140/75 140/75 Blood Pressure Mean 110 110 Pulse Oximetry 93 Oxygen Delivery Method Sepsis Recent Fever Within 48 Hours Sepsis New/Unexplained Change in Mental Status Sepsis Action Taken by Nursing 04/13/24 00:30 04/13/24 00:30 04/13/24 00:30 Temperature Temperature Source Pulse Rate Pulse Rate [Apical] Pulse Rate from SpO2 Sensor Pulse Rhythm [Apical] Pulse Strength [Apical] Respiratory Rate Respiratory Effort / Characteristics Respiratory Depth Respiratory Pattern Blood Pressure 145/79 H 145/79 H 145/79 H Blood Pressure Mean 112 112 112 Pulse Oximetry Oxygen Delivery Method Sepsis Recent Fever Within 48 Hours Sepsis New/Unexplained Change in Mental Status Sepsis Action Taken by Nursing 04/13/24 01:30 04/13/24 01:30 Temperature Temperature Source Pulse Rate Pulse Rate [Apical] Pulse Rate from SpO2 Sensor Pulse Rhythm [Apical] Pulse Strength [Apical] Respiratory Rate Respiratory Effort / Characteristics Respiratory Depth Respiratory Pattern Blood Pressure 140/63 140/63 Blood Pressure Mean 102 102 Pulse Oximetry Oxygen Delivery Method Sepsis Recent Fever Within 48 Hours Sepsis New/Unexplained Change in Mental Status Sepsis Action Taken by Nursing Laboratory Data 04/13/24 08:57 04/13/24 07:17 Lab Results 04/12/24 04/12/24 04/12/24 Range/Units 21:46 21:46 22:25 WBC 6.01 (4.8-10.8) K/ul RBC 4.22 (4.20-5.40) M/uL Hgb 12.8 (12.0-16.0) g/dl Hct 38.5 (37.0-47.0) % MCV 91.2 (80.0-100.0) fL MCH 30.3 (25.0-34.0) pg MCHC 33.2 (32.0-36.0) g/dL RDW Std Deviation 41.9 (36.4-46.3) fL RDW Coeff of Jaydon 12.6 (11.5-14.5) % Plt Count 274 (130-400) K/uL MPV 9.6 (9.4-12.4) fL Immature Gran % (Auto) 0.3 % Neut % (Auto) 78.1 % Lymph % (Auto) 12.6 % Mccreary % (Auto) 7.5 % Eos % (Auto) 1.2 % Baso % (Auto) 0.3 % Neut # (Auto) 4.69 (1.40-6.50) K/uL Lymph # (Auto) 0.76 L (1.20-3.40) K/uL Mccreary # (Auto) 0.45 (0.11-0.59) K/uL Eos # (Auto) 0.07 (0.00-0.50) K/uL Baso # (Auto) 0.02 (0.00-0.20) K/uL Immature Gran # (Auto) 0.02 (0.01-0.20) K/uL PT 10.3 (9.0-12.0) Seconds INR 0.9 (0.9-1.1) APTT 26 (21-31) Seconds PTT Ratio 1.0 Sodium 133 L (136-145) mmol/L Potassium 4.4 (3.5-5.1) mmol/L Chloride 99 (98-107) mmol/L Carbon Dioxide 25 (21-32) mmol/L Anion Gap 9 (3-11) BUN 18 (6-23) mg/dl Creatinine 0.98 (0.6-1.2) mg/dl Est Cr Clr Drug Dosing 51.0 ml/min Est GFR ( Amer) 66.8 ml/min Est GFR (Non-Af Amer) 57.6 ml/min BUN/Creatinine Ratio 18.4 (10-20) Glucose 183 H (70-99(Fasting)) mg/dl POC Glucose (70-99) mg/dl Lactate 2.0 (0.4-2.0) mmol/L Calcium 10.2 (8.6-10.3) mg/dl Magnesium 1.8 (1.7-2.4) mg/dl Total Bilirubin 0.3 (0.2-1.0) mg/dl AST 13 (13-39) U/L ALT 9 (7-52) U/L Alkaline Phosphatase 42 (34-104) U/L Troponin I High Sens 5.1 (0-14) pg/ml Total Protein 7.3 (6.0-8.3) gm/dl Albumin 4.5 (3.4-5.0) gm/dl Globulin 2.8 (2.5-4.0) gm/dl Albumin/Globulin Ratio 1.6 (0.9-2) Procalcitonin 0.03 Cancelled (0-0.5) ng/ml Urine Color Urine Appearance (Clear) Urine pH (4.5-7.5) Ur Specific Derry (1.000-1.030) Urine Protein (Negative) Urine Glucose (UA) (Negative) Urine Ketones (Negative) Urine Blood (Negative) Urine Nitrite (Negative) Urine Bilirubin (Negative) Urine Urobilinogen (Negative) Ur Leukocyte Esterase (Negative) Urine WBC (Auto) (0-5) /hpf Urine RBC (Auto) (0-2) /hpf U Hyaline Cast (Auto) (0-2) /lpf U Epithel Cells (Auto) (0-2) /hpf Urine Bacteria (Auto) (None Seen) Adenovirus (PCR) Not Detected (NotDetected) Anaplasma Smear See Comment Babesia Smear See Comment B. pertussis DNA (PCR) Not Detected (NotDetected) B.parapertussis DNA PCR Not Detected (NotDetected) Lyme Disease Screen Negative (Negative) C. pneumoniae DNA (PCR) Not Detected (NotDetected) Coronavirus OC43 (PCR) Not Detected (NotDetected) Coronavirus HKU1 (PCR) Not Detected (NotDetected) Coronavirus 229E (PCR) Not Detected (NotDetected) SARS-CoV-2 (PCR) Not Detected (NotDetected) Coronavirus NL63 (PCR) Not Detected (NotDetected) Human Metapneumovir PCR Not Detected (NotDetected) Influenza Type A (PCR) Not Detected (NotDetected) Influenza Type B (PCR) Not Detected (NotDetected) M. pneumoniae (PCR) Not Detected (NotDetected) Parainfluenza 1 (PCR) Not Detected (NotDetected) Parainfluenza 2 (PCR) Not Detected (NotDetected) Parainfluenza 3 (PCR) Not Detected (NotDetected) Parainfluenza 4 (PCR) Not Detected (NotDetected) RSV (PCR) Not Detected (NotDetected) Entero/Rhino (PCR) Not Detected (NotDetected) 04/12/24 04/12/24 Range/Units 22:44 23:48 WBC (4.8-10.8) K/ul RBC (4.20-5.40) M/uL Hgb (12.0-16.0) g/dl Hct (37.0-47.0) % MCV (80.0-100.0) fL MCH (25.0-34.0) pg MCHC (32.0-36.0) g/dL RDW Std Deviation (36.4-46.3) fL RDW Coeff of Jaydon (11.5-14.5) % Plt Count (130-400) K/uL MPV (9.4-12.4) fL Immature Gran % (Auto) % Neut % (Auto) % Lymph % (Auto) % Mccreary % (Auto) % Eos % (Auto) % Baso % (Auto) % Neut # (Auto) (1.40-6.50) K/uL Lymph # (Auto) (1.20-3.40) K/uL Mccreary # (Auto) (0.11-0.59) K/uL Eos # (Auto) (0.00-0.50) K/uL Baso # (Auto) (0.00-0.20) K/uL Immature Gran # (Auto) (0.01-0.20) K/uL PT (9.0-12.0) Seconds INR (0.9-1.1) APTT (21-31) Seconds PTT Ratio Sodium (136-145) mmol/L Potassium (3.5-5.1) mmol/L Chloride (98-107) mmol/L Carbon Dioxide (21-32) mmol/L Anion Gap (3-11) BUN (6-23) mg/dl Creatinine (0.6-1.2) mg/dl Est Cr Clr Drug Dosing ml/min Est GFR ( Amer) ml/min Est GFR (Non-Af Amer) ml/min BUN/Creatinine Ratio (10-20) Glucose (70-99(Fasting)) mg/dl POC Glucose 133 H (70-99) mg/dl Lactate (0.4-2.0) mmol/L Calcium (8.6-10.3) mg/dl Magnesium (1.7-2.4) mg/dl Total Bilirubin (0.2-1.0) mg/dl AST (13-39) U/L ALT (7-52) U/L Alkaline Phosphatase (34-104) U/L Troponin I High Sens (0-14) pg/ml Total Protein (6.0-8.3) gm/dl Albumin (3.4-5.0) gm/dl Globulin (2.5-4.0) gm/dl Albumin/Globulin Ratio (0.9-2) Procalcitonin (0-0.5) ng/ml Urine Color Yellow Urine Appearance Clear (Clear) Urine pH 8.0 H (4.5-7.5) Ur Specific Derry 1.015 (1.000-1.030) Urine Protein Negative (Negative) Urine Glucose (UA) Negative (Negative) Urine Ketones Negative (Negative) Urine Blood Negative (Negative) Urine Nitrite Negative (Negative) Urine Bilirubin Negative (Negative) Urine Urobilinogen Negative (Negative) Ur Leukocyte Esterase Trace H (Negative) Urine WBC (Auto) 21-50 H (0-5) /hpf Urine RBC (Auto) 0-2 (0-2) /hpf U Hyaline Cast (Auto) 0-2 (0-2) /lpf U Epithel Cells (Auto) 0-2 (0-2) /hpf Urine Bacteria (Auto) 4+ H (None Seen) Adenovirus (PCR) (NotDetected) Anaplasma Smear Babesia Smear B. pertussis DNA (PCR) (NotDetected) B.parapertussis DNA PCR (NotDetected) Lyme Disease Screen (Negative) C. pneumoniae DNA (PCR) (NotDetected) Coronavirus OC43 (PCR) (NotDetected) Coronavirus HKU1 (PCR) (NotDetected) Coronavirus 229E (PCR) (NotDetected) SARS-CoV-2 (PCR) (NotDetected) Coronavirus NL63 (PCR) (NotDetected) Human Metapneumovir PCR (NotDetected) Influenza Type A (PCR) (NotDetected) Influenza Type B (PCR) (NotDetected) M. pneumoniae (PCR) (NotDetected) Parainfluenza 1 (PCR) (NotDetected) Parainfluenza 2 (PCR) (NotDetected) Parainfluenza 3 (PCR) (NotDetected) Parainfluenza 4 (PCR) (NotDetected) RSV (PCR) (NotDetected) Entero/Rhino (PCR) (NotDetected) Administered Medications Aspirin (Aspirin 81 Mg Ectab) 81 mg PO QAM [facility] Stop: 05/13/24 08:59 Last Admin: 04/13/24 07:22 Dose: 81 mg Documented By: KRISTEN Atorvastatin Calcium (Atorvastatin 40 Mg Tab) 40 mg PO DAILY [facility] Stop: 05/13/24 08:59 Last Admin: 04/13/24 07:23 Dose: 40 mg Documented By: KRISTEN Baclofen (Baclofen 10 Mg Tab) 10 mg PO TID [facility] Stop: 05/13/24 08:59 Last Admin: 04/13/24 13:51 Dose: 10 mg Documented By: Admin: 04/13/24 07:21 Dose: 10 mg Documented By: KRISTEN Enoxaparin Sodium (Enoxaparin Inj 40 Mg/0.4 Ml Syr) 40 mg SQ QAM [facility] Stop: 05/13/24 08:59 Last Admin: 04/13/24 07:23 Dose: 40 mg Documented By: KRISTEN Escitalopram Oxalate (Escitalopram Oxalate 20 Mg Tab) 20 mg PO [facility] Stop: 05/13/24 08:59 Last Admin: 04/13/24 07:22 Dose: 20 mg Documented By: KRISTEN Promethazine HCl (Phenergan) 6.25 mg in 50.25 mls @ 201 mls/hr IV Q6H PRN PRN Reason: Nausea And Vomiting Stop: 05/13/24 01:59 Last Infusion: 04/13/24 04:57 Dose: Infused Documented By: Admin: 04/13/24 04:40 Dose: 201 mls/hr Documented By: HAKAN Insulin Aspart (Insulin Aspart Per Unit Charge) [facility] Stop: 05/13/24 04:36 Last Admin: 04/13/24 17:37 Dose: Not Given Documented By: KRISTEN Co-signed By: AGUILAR Admin: 04/13/24 12:38 Dose: 2 units Documented By: KRISTEN Co-signed By: AGUILAR Admin: 04/13/24 08:48 Dose: Not Given Documented By: KRISTEN Co-signed By: AGUILAR Admin: 04/13/24 04:56 Dose: Not Given Documented By: HAKAN Miscellaneous (Tigan~Order Awaiting Action) 1 each N/A QS [facility] Stop: 05/13/24 15:59 Last Admin: 04/13/24 13:41 Dose: Not Given Documented By: KRISTEN Pantoprazole Sodium (Pantoprazole 40 Mg Tab) 40 mg PO [facility] Stop: 05/13/24 08:59 Last Admin: 04/13/24 07:23 Dose: 40 mg Documented By: KRISTEN Discontinued Medications Aspirin (Aspirin 325 Mg Ectab) 325 mg PO NOW STA Stop: 04/12/24 23:23 Last Admin: 04/12/24 23:44 Dose: 325 mg Documented By: YESENIA Atorvastatin Calcium (Atorvastatin 40 Mg Tab) 80 mg PO NOW STA Stop: 04/12/24 23:23 Last Admin: 04/12/24 23:44 Dose: 80 mg Documented By: YESENIA Clopidogrel Bisulfate (Clopidogrel Bisulfate 300 Mg Tab) 300 mg PO NOW STA Stop: 04/12/24 23:23 Last Admin: 04/13/24 04:42 Dose: 300 mg Documented By: HAKAN Sodium Chloride (Nss) 1,000 mls @ 999 mls/hr IV .Q1H1M ONE Stop: 04/12/24 23:06 Last Infusion: 04/13/24 00:23 Dose: Infused Documented By: Admin: 04/12/24 22:23 Dose: 999 mls/hr Documented By: YESENIA Acetaminophen (Ofirmev) 1,000 mg in 100 mls @ 400 mls/hr IV NOW STA Stop: 04/12/24 22:34 Last Infusion: 04/12/24 23:02 Dose: Infused Documented By: Admin: 04/12/24 22:25 Dose: 400 mls/hr Documented By: YESENIA Sodium Chloride (Nss) 1,000 mls @ 999 mls/hr IV .Q1H1M ONE Stop: 04/13/24 00:22 Last Infusion: 04/13/24 01:46 Dose: Infused Documented By: Admin: 04/12/24 23:46 Dose: 999 mls/hr Documented By: YESENIA Ceftriaxone Sodium (Rocephin) 2,000 mg in 50 mls @ 100 mls/hr IV NOW STA Stop: 04/13/24 00:49 Last Infusion: 04/13/24 01:46 Dose: Infused Documented By: Admin: 04/13/24 00:27 Dose: 100 mls/hr Documented By: YESENIA Magnesium Sulfate/Dextrose (Magnesium Sulfate / D5w) 1 gm in 100 mls @ 50 mls/hr IV ONE ONE Stop: 04/13/24 03:02 Last Infusion: 04/13/24 04:57 Dose: Infused Documented By: Admin: 04/13/24 01:55 Dose: 50 mls/hr Documented By: YESENIA Ampicillin Sodium/Sulbactam Sodium (Unasyn) 3,000 mg in 100 mls @ 200 mls/hr IV NOW STA Stop: 04/13/24 02:34 Last Infusion: 04/13/24 04:00 Dose: Infused Documented By: Admin: 04/13/24 02:25 Dose: 200 mls/hr Documented By: YESENIA Ondansetron HCl (Ondansetron Inj 2 Mg/Ml 2 Ml Vial) 4 mg IV NOW STA Stop: 04/13/24 08:49 Last Admin: 04/13/24 08:57 Dose: 4 mg Documented By: KRISTEN Imaging Data Radiologist's Impression: Chest X-Ray 04/12/24 22:56 XR chest 1V portable HISTORY: fever COMPARISON: None. FINDINGS: The lungs are clear. Cardiac silhouette is normal in size. No pleural effusions. No pneumothorax. Calcifications and surgical clips within the left axilla/breast. IMPRESSION: No acute process. ACT 112: Negative or not required by law. Electronically signed by: Micah Mckenna M.D. 04/13/2024 7:37 AM Discharge Plan Visit Data Chief Complaint: Weakness Stated Complaint: Weakness ED Provider: Brooke Elliott Discharge Problem: Headache, Weakness, Stroke-like symptoms, Acute UTI (urinary tract infection) Patient Disposition: Admitted As Inpatient Discharge Instructions Interventions: ED Discharge Assessment Last Done: 04/13/24 02:39
[2024-04-12] MEDS: SODIUM CHLORIDE 0.9% 1,000 ML IV ONE ×2 (22:23→23:46)
[2024-04-12] MEDS: ACETAMINOPHEN 1,000 MG/100 ML VIAL IV STA (22:25)
[2024-04-12 22:30] LABS: Basophils # (auto) 0.02 K/uL (0.00-0.20); Basophils % (auto) 0.3 %; Eosinophils # (auto) 0.07 K/uL (0.00-0.50); Eosinophils % (auto) 1.2 %; Hematocrit (blood only) 38.5 % (37.0-47.0); Hemoglobin 12.8 g/dl (12.0-16.0); Immature Granulocytes # (auto) 0.02 K/uL (0.01-0.20); Immature Granulocytes % (auto) 0.3 %; Lymphocytes # (auto) 0.76 K/uL (1.20-3.40); Lymphocytes % (auto) 12.6 %; Mean Corpuscular Hemoglobin 30.3 pg (25.0-34.0); Mean Corpuscular Hgb Conc 33.2 g/dL (32.0-36.0); Mean Corpuscular Volume 91.2 fL (80.0-100.0); Mean Platelet Volume 9.6 fL (9.4-12.4); Monocytes # (auto) 0.45 K/uL (0.11-0.59); Monocytes % (auto) 7.5 %; Neutrophils # (auto) 4.69 K/uL (1.40-6.50); Neutrophils % (auto) 78.1 %; Platelet Count 274 K/uL (130-400); RDW Coefficient of Variation 12.6 % (11.5-14.5); RDW Standard Deviation 41.9 fL (36.4-46.3); Red Blood Count 4.22 M/uL (4.20-5.40); White Blood Count 6.01 K/ul (4.8-10.8)
--- NOTE | 2024-04-12 22:32 | CT Scan Report ---
Exam(s): CT HEAD Without Contrast EXAM: CT Head Without Intravenous Contrast CLINICAL HISTORY: Reason for exam: neuro deficit, acute stroke suspected. TECHNIQUE: Axial computed tomography images of the head/brain without intravenous contrast. CTDI is 36.67 mGy and DLP is 625.8 mGy-cm. Automated exposure control was utilized for the study. A dose lowering technique was utilized adhering to the principles of ALARA. COMPARISON: MRI brain FINDINGS: Brain: Generalized parenchymal volume loss. Periventricular and deep cerebral white matter hypoattenuation suggesting chronic small vessel ischemic change. Quan-white matter differentiation maintained. No hemorrhage, mass effect, parenchymal edema, or midline shift. Ventricles: Unremarkable. No hydrocephalus. Bones/joints: Unremarkable. No acute fracture. Soft tissues: Unremarkable. Vasculature: Intracranial atherosclerosis. No hyperdense vessel sign. Sinuses: Unremarkable as visualized. Mastoid air cells: Unremarkable as visualized. No mastoid effusion. Orbits: Bilateral lens replacements. IMPRESSION: No acute intracranial process. Communications: Call Doctor Stroke Electronically signed by: Jagruti Casanova M.D. 04/12/24 22:32 PM
[2024-04-12 22:39] LABS: INR 0.9 (0.9-1.1); Partial Thromboplastin Time 26 Seconds (21-31); Prothrombin Time 10.3 Seconds (9.0-12.0)
[2024-04-12 22:44] LABS: Albumin Globulin Ratio 1.6 (0.9-2); Albumin Level 4.5 gm/dl (3.4-5.0); BUN Creatinine Ratio 18.4 (10-20); Bilirubin,Total 0.3 mg/dl (0.2-1.0); Calcium 10.2 mg/dl (8.6-10.3); Est GFR (African American) 66.8 ml/min; Est GFR (Non-African American) 57.6 ml/min; Globulin 2.8 gm/dl (2.5-4.0); Magnesium 1.8 mg/dl (1.7-2.4); Potassium 4.4 mmol/L (3.5-5.1); Total Protein 7.3 gm/dl (6.0-8.3)
[2024-04-12 22:51] LABS: Troponin I High Sensitivity 5.1 pg/ml (0-14)
[2024-04-12 23:17] LABS: Adenovirus PCR Not Detected (NotDetected); Bordetella parapertussis PCR Not Detected (NotDetected); Bordetella pertussis PCR Not Detected (NotDetected); Chlamydia pneumoniae PCR Not Detected (NotDetected); Coronavirus 229E PCR Not Detected (NotDetected); Coronavirus CoV-2 (COVID19)PCR Not Detected (NotDetected); Coronavirus HKU1 PCR Not Detected (NotDetected); Coronavirus NL63 PCR Not Detected (NotDetected); Coronavirus OC43PCR Not Detected (NotDetected); Human Metapneumovirus PCR Not Detected (NotDetected); Influenza A PCR Not Detected (NotDetected); Influenza B PCR Not Detected (NotDetected); Mycoplasma pneumoniae PCR Not Detected (NotDetected); Parainfluenza Virus 1 PCR Not Detected (NotDetected); Parainfluenza Virus 2 PCR Not Detected (NotDetected); Parainfluenza Virus 3 PCR Not Detected (NotDetected); Parainfluenza Virus 4 PCR Not Detected (NotDetected); Respiratory Syncytial VirusPCR Not Detected (NotDetected); Rhinovirus/Enterovirus PCR Not Detected (NotDetected)
[2024-04-12] MEDS: ASPIRIN 325 MG ECTAB PO STA (23:44)
[2024-04-12] MEDS: ATORVASTATIN 40 MG TAB PO STA (23:44)
[2024-04-12 23:48] LABS: Procalcitonin 0.03 ng/ml (0-0.5)
[2024-04-13 00:06] LABS: Appearance Urine Clear (Clear); Bacteria Urine Automated 4+ (None Seen); Bilirubin Urine Negative (Negative); Blood Urine Negative (Negative); Cast Urine Automated 0-2 /lpf (0-2); Color Urine Yellow; Epithelial Cell Urine Auto 0-2 /hpf (0-2); Glucose Urine UA Negative (Negative); Ketones Urine Negative (Negative); Leukocyte Esterase Urine Trace (Negative); Nitrite Urine Negative (Negative); Protein Urine Negative (Negative); RBC Urine Automated 0-2 /hpf (0-2); Specific Gravity Urine 1.015 (1.000-1.030); Urobilinogen Urine Negative (Negative); WBC Urine Automated 21-50 /hpf (0-5)
[2024-04-13 00:14] LABS: Lyme Screen Rflx Confirmation Negative (Negative)
[2024-04-13] MEDS: cefTRIAXone SODIUM 2,000 MG/50 ML BAG IV STA (00:27)
--- NOTE | 2024-04-13 01:15 | Magnetic Resonance Report ---
Exam(s): MRA HEAD Without Contrast EXAM: MR Angiography Head Without Intravenous Contrast CLINICAL HISTORY: Reason for exam: stroke like sx. TECHNIQUE: Magnetic resonance angiography images of the head without intravenous contrast. COMPARISON: CT head of the same date FINDINGS: Right internal carotid artery: No acute findings. Intracranial segment is patent with no significant stenosis. No aneurysm. Right anterior cerebral artery: Unremarkable. No occlusion or significant stenosis. No aneurysm. Right middle cerebral artery: Unremarkable. No occlusion or significant stenosis. No aneurysm. Right posterior cerebral artery: Unremarkable. No occlusion or significant stenosis. No aneurysm. Right vertebral artery: Unremarkable as visualized. Left internal carotid artery: No acute findings. Intracranial segment is patent with no significant stenosis. No aneurysm. Left anterior cerebral artery: Unremarkable. No occlusion or significant stenosis. No aneurysm. Left middle cerebral artery: Unremarkable. No occlusion or significant stenosis. No aneurysm. Left posterior cerebral artery: Unremarkable. No occlusion or significant stenosis. No aneurysm. Left vertebral artery: Unremarkable as visualized. Basilar artery: Unremarkable. No occlusion or significant stenosis. No aneurysm. IMPRESSION: Normal head/brain MRA. Electronically signed by: Jagruti Casanova M.D. 04/13/24 01:14 AM
--- NOTE | 2024-04-13 01:26 | History & Physical Report ---
Date of Service April 13, 2024 Assessment & Plan (1) Encephalopathy: Plan: Multifactorial: Infection related (complicated UTI, aspiration pneumonitis), no sepsis for now. TIA given aphasia symptoms, possible aspirin failure Home baclofen and benzo medications contributory chronic diastolic heart failure (EF 60%, TTE 2023), patient removed right side history of Takotsubo cardiomyopathy nonocclusive CAD valvular heart disease (mild MR/TR, mild to moderate AR) hypertension, stable hyperlipidemia, on statin Rx hypothyroidism, euthyroid as of today's TSH multiple sclerosis, RRMS as per outpatient Neurology note. Currently not on maintenance Rx. 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 LE venous Dopplers rule out DVT ISS BG goal 1 10-1 40, carb count coverage DVT prophylaxis. Lovenox subcu Full code Patient daughter requesting updates from providers. Ms. Dali Carlos, contact #[phone]. Text document was generated using weendy voice recognition software. It may contain grammatical or spelling errors. Kindly contact undersigned for clarification of any documentation item in question. History of Present Illness Chief Complaint: Confusion, weakness, aphasia Primary Care Provider: Carlos Alberto Brown MD History obtained from patient, family, and records. Medical history significant for chronic diastolic heart failure (EF 60%, TTE 2023), history of Takotsubo cardiomyopathy, nonocclusive CAD, valvular heart disease (mild MR/TR, mild to moderate AR), hypertension, hyperlipidemia, hypoth yroidism, multiple sclerosis, DM2 on oral medications, recurrent left breast cancer status post surgery status post radiation status post incomplete tamoxifen Rx, GERD, anxiety/mood disorder, past tobacco abuse. Last confinement April 2023 for Takotsubo cardiomyopathy. EF of 55 to 60% on TTE. Nonocclusive CAD on diagnostic cardiac catheterization. Patient noted to have bilateral leg weakness the last few days. No chest pain, no SOB, no abdominal pain, no diarrhea, no dysuria. Patient woke up with a headache yesterday morning. Around 6:30 PM last night, patient noted to be confused and having trouble finding words. Patient compliant with home aspirin Rx. Junky cough symptoms without SOB. Patient not sure about sick contacts. Admits to coughing with meals/water intake from time to time. Both legs more swollen than usual. IV ceftriaxone and Plavix administered at the ER. Patient speaking much better now as per family. 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 Allergies Allergy/AdvReac Type Severity Reaction Status Date / Time oxycodone Allergy Mild hives Verified 04/13/24 00:45 Gadolinium-Containing Allergy Hives Verified 04/13/24 00:45 Contrast Medi latex Allergy itching Verified 04/13/24 00:45 Home Medications Medication Instructions Recorded Confirmed Type amlodipine 10 mg tablet 10 mg PO QAM 04/13/24 04/13/24 History aspirin 81 mg tablet,delayed 81 mg PO QAM 04/13/24 04/13/24 History release atorvastatin 40 mg tablet 40 mg PO DAILY 04/13/24 04/13/24 History baclofen 10 mg tablet 10 mg PO TID 04/13/24 04/13/24 History clonazepam 1 mg tablet 1 mg PO HS PRN Insomnia 04/13/24 04/13/24 History coenzyme Q10 100 mg capsule 100 mg PO DAILY 04/13/24 04/13/24 History (CoQ-10) conjugated estrogens 0.625 mg/gram 1 applic vaginal .WEEK 04/13/24 04/13/24 History vaginal cream (Premarin) d-mannose 500 mg capsule 500 mg PO BID 04/13/24 04/13/24 History dulaglutide 0.75 mg/0.5 mL 0.75 mg subcut .WEEK 04/13/24 04/13/24 History subcutaneous pen injector (Trulicity) escitalopram oxalate 20 mg tablet 20 mg PO QAM 04/13/24 04/13/24 History esomeprazole magnesium 40 mg 40 mg PO QAM 04/13/24 04/13/24 History capsule,delayed release gabapentin 600 mg tablet 600 mg PO HS 04/13/24 04/13/24 History metformin 1,000 mg tablet 1,000 mg PO BID 04/13/24 04/13/24 History metoprolol succinate 25 mg 12.5 mg PO AMHS 04/13/24 04/13/24 History tablet,extended release 24 hr spironolactone 25 mg tablet 25 mg PO QAM 04/13/24 04/13/24 History turmeric root extract 500 mg tablet 500 mg PO QPM 04/13/24 04/13/24 History valsartan 160 mg tablet 160 mg PO HS 04/13/24 04/13/24 History Past Med/Surg History Problem List (Updated 04/13/24 @ 09:41 by Favian Medina MD) Encephalopathy Acute UTI (urinary tract infection) (Acute) Stroke-like symptoms (Acute) Weakness (Acute) Headache (Acute) Takotsubo cardiomyopathy Hyponatremia (Acute) Hypokalemia (Acute) Hypomagnesemia (Acute) STEMI (ST elevation myocardial infarction) Cardiomyopathy Abnormal EKG CKD (chronic kidney disease) stage II. following with . DM type 2 (diabetes mellitus, type 2) HLD (hyperlipidemia) Hypertension Elevated troponin (Acute) Weakness (Acute) Lightheadedness (Acute) Vaccine reaction (Acute) Encounter for pre-operative examination Rotator cuff tear, left Tendinitis of right rotator cuff Medical History CAD (coronary artery disease) History of COVID-19 11/12/2022 + home test. congestion, cough, fatigue. resolved. Volvulus hx History of gout Fibromyalgia Spinal stenosis Lumbar herniated disc DDD (degenerative disc disease) Bladder retention Bladder incontinence Hypothyroidism History of skin cancer removed History of breast cancer dx'd 1997. hx surgery + radiation. Anxiety Neuropathy GERD (gastroesophageal reflux disease) Dysphagia Multiple sclerosis Surgical History History of hysterectomy History of intestinal surgery S/P trigger finger release multiple History of surgery D&E History of D&C History of lumpectomy of right breast benign H/O vein stripping History of left mastectomy denies limb restriction History of lumpectomy of left breast malignant History of colonoscopy Family History Other Cancer Heart disease Hypertension No family history of adverse response to anesthesia Social History Smoking Status: Former smoker Second Hand Exposure: No; Do You Dip or Chew Tobacco: No; Hx Alcohol Use: No Hx Substance Use: No Preferred Language: [place]i Communication Ability: Effective Mixing Machine Tender Required: No Beliefs That Will Affect Care: None Current Living Situation: Spouse Other Information That Helps Us Care for You: No Feels Safe at Home: Yes Safety Concerns: Feels Safe At This Time Assistive Devices: Walker Review of Systems Review of Systems: As per HPI, all other systems reviewed and negative Physical Exam Physical Exam: GENERAL: Aphasic, comfortable, pleasant, no respiratory distress SKIN: Normal color, warm HEENT: [place] palpebral conjunctivae, no ptosis, dry buccal mucosa NECK : Supple, no tenderness CHEST : CTA, no tenderness HEART : RRR, systolic murmur ABDOMEN: Some distention, nontender EXTREMITIES : Bilateral LE swelling, no LE tenderness, no other conspicuous deformities noted NEUROLOGIC : Aphasic, no facial asymmetry, no other gross focality Results & Data Results & Data Vital Signs (Past 12 Hours) Vital Signs Temp Pulse Pulse Resp BP Pulse Ox O2 Del Method 04/13/24 00:00 72 20 94 Room Air 04/12/24 23:51 71 20 93 04/12/24 23:48 73 23 93 04/12/24 23:45 135/80 04/12/24 23:30 140/77 04/12/24 23:30 74 22 91 04/12/24 23:21 74 21 92 04/12/24 23:15 75 19 91 04/12/24 23:15 138/87 04/12/24 23:15 138/87 04/12/24 23:09 146/78 H 04/12/24 23:06 76 23 92 04/12/24 23:03 75 22 96 04/12/24 23:03 38.7 C H 04/12/24 23:00 149/106 H 04/12/24 22:45 160/80 H 04/12/24 22:36 75 17 96 04/12/24 22:30 73 19 93 04/12/24 22:30 160/85 H 04/12/24 22:27 73 23 95 04/12/24 22:23 164/80 H 04/12/24 22:06 70 19 94 Room Air 04/12/24 22:06 94 Room Air 04/12/24 22:03 72 22 95 04/12/24 22:01 39.6 C H 72 20 157/89 H 94 Room Air 04/12/24 22:00 95 04/12/24 22:00 172/97 H 04/12/24 21:46 157/89 H 04/12/24 21:46 75 Laboratory Results Laboratory Results WBC 6.01 K/ul (4.8-10.8) 04/12/24 21:46 RBC 4.22 M/uL (4.20-5.40) 04/12/24 21:46 Hgb 12.8 g/dl (12.0-16.0) 04/12/24 21:46 Hct 38.5 % (37.0-47.0) 04/12/24 21:46 MCV 91.2 fL (80.0-100.0) 04/12/24 21:46 MCH 30.3 pg (25.0-34.0) 04/12/24 21:46 MCHC 33.2 g/dL (32.0-36.0) 04/12/24 21:46 RDW Std Deviation 41.9 fL (36.4-46.3) 04/12/24 21:46 RDW Coeff of Jaydon 12.6 % (11.5-14.5) 04/12/24 21:46 Plt Count 274 K/uL (130-400) 04/12/24 21:46 MPV 9.6 fL (9.4-12.4) 04/12/24 21:46 Immature Gran % (Auto) 0.3 % 04/12/24 21:46 Neut % (Auto) 78.1 % 04/12/24 21:46 Lymph % (Auto) 12.6 % 04/12/24 21:46 Sampson % (Auto) 7.5 % 04/12/24 21:46 Eos % (Auto) 1.2 % 04/12/24 21:46 Baso % (Auto) 0.3 % 04/12/24 21:46 Neut # (Auto) 4.69 K/uL (1.40-6.50) 04/12/24 21:46 Lymph # (Auto) 0.76 K/uL (1.20-3.40) L 04/12/24 21:46 Sampson # (Auto) 0.45 K/uL (0.11-0.59) 04/12/24 21:46 Eos # (Auto) 0.07 K/uL (0.00-0.50) 04/12/24 21:46 Baso # (Auto) 0.02 K/uL (0.00-0.20) 04/12/24 21:46 Immature Gran # (Auto) 0.02 K/uL (0.01-0.20) 04/12/24 21:46 PT 10.3 Seconds (9.0-12.0) 04/12/24 21:46 INR 0.9 (0.9-1.1) 04/12/24 21:46 APTT 26 Seconds (21-31) 04/12/24 21:46 PTT Ratio 1.0 04/12/24 21:46 Sodium 133 mmol/L (136-145) L 04/12/24 21:46 Potassium 4.4 mmol/L (3.5-5.1) 04/12/24 21:46 Chloride 99 mmol/L (98-107) 04/12/24 21:46 Carbon Dioxide 25 mmol/L (21-32) 04/12/24 21:46 Anion Gap 9 (3-11) 04/12/24 21:46 BUN 18 mg/dl (6-23) 04/12/24 21:46 Creatinine 0.98 mg/dl (0.6-1.2) 04/12/24 21:46 Est Cr Clr Drug Dosing 51.0 ml/min 04/12/24 21:46 Est GFR ( Amer) 66.8 ml/min 04/12/24 21:46 Est GFR (Non-Af Amer) 57.6 ml/min 04/12/24 21:46 BUN/Creatinine Ratio 18.4 (10-20) 04/12/24 21:46 Glucose 183 mg/dl (70-99(Fasting)) H 04/12/24 21:46 POC Glucose 133 mg/dl (70-99) H 04/12/24 22:44 Lactate 2.0 mmol/L (0.4-2.0) 04/12/24 22:25 Calcium 10.2 mg/dl (8.6-10.3) 04/12/24 21:46 Magnesium 1.8 mg/dl (1.7-2.4) 04/12/24 21:46 Total Bilirubin 0.3 mg/dl (0.2-1.0) 04/12/24 21:46 AST 13 U/L (13-39) 04/12/24 21:46 ALT 9 U/L (7-52) 04/12/24 21:46 Alkaline Phosphatase 42 U/L (34-104) 04/12/24 21:46 Troponin I High Sens 5.1 pg/ml (0-14) 04/12/24 21:46 Total Protein 7.3 gm/dl (6.0-8.3) 04/12/24 21:46 Albumin 4.5 gm/dl (3.4-5.0) 04/12/24 21:46 Globulin 2.8 gm/dl (2.5-4.0) 04/12/24 21:46 Albumin/Globulin Ratio 1.6 (0.9-2) 04/12/24 21:46 Procalcitonin 0.03 ng/ml (0-0.5) 04/12/24 21:46 Procalcitonin Cancelled 04/12/24 21:46 Urine Color Yellow 04/12/24 23:48 Urine Appearance Clear (Clear) 04/12/24 23:48 Urine pH 8.0 (4.5-7.5) H 04/12/24 23:48 Ur Specific [place] 1.015 (1.000-1.030) 04/12/24 23:48 Urine Protein Negative (Negative) 04/12/24 23:48 Urine Glucose (UA) Negative (Negative) 04/12/24 23:48 Urine Ketones Negative (Negative) 04/12/24 23:48 Urine Blood Negative (Negative) 04/12/24 23:48 Urine Nitrite Negative (Negative) 04/12/24 23:48 Urine Bilirubin Negative (Negative) 04/12/24 23:48 Urine Urobilinogen Negative (Negative) 04/12/24 23:48 Ur Leukocyte Esterase Trace (Negative) H 04/12/24 23:48 Urine WBC (Auto) 21-50 /hpf (0-5) H 04/12/24 23:48 Urine RBC (Auto) 0-2 /hpf (0-2) 04/12/24 23:48 U Hyaline Cast (Auto) 0-2 /lpf (0-2) 04/12/24 23:48 U Epithel Cells (Auto) 0-2 /hpf (0-2) 04/12/24 23:48 Urine Bacteria (Auto) 4+ (None Seen) H 04/12/24 23:48 Adenovirus (PCR) Not Detected (NotDetected) 04/12/24 21:46 Anaplasma Smear See Comment 04/12/24 21:46 Babesia Smear See Comment 04/12/24 21:46 B. pertussis DNA (PCR) Not Detected (NotDetected) 04/12/24 21:46 B.parapertussis DNA PCR Not Detected (NotDetected) 04/12/24 21:46 Lyme Disease Screen Negative (Negative) 04/12/24 21:46 C. pneumoniae DNA (PCR) Not Detected (NotDetected) 04/12/24 21:46 Coronavirus OC43 (PCR) Not Detected (NotDetected) 04/12/24 21:46 Coronavirus HKU1 (PCR) Not Detected (NotDetected) 04/12/24 21:46 Coronavirus 229E (PCR) Not Detected (NotDetected) 04/12/24 21:46 SARS-CoV-2 (PCR) Not Detected (NotDetected) 04/12/24 21:46 Coronavirus NL63 (PCR) Not Detected (NotDetected) 04/12/24 21:46 Human Metapneumovir PCR Not Detected (NotDetected) 04/12/24 21:46 Influenza Type A (PCR) Not Detected (NotDetected) 04/12/24 21:46 Influenza Type B (PCR) Not Detected (NotDetected) 04/12/24 21:46 M. pneumoniae (PCR) Not Detected (NotDetected) 04/12/24 21:46 Parainfluenza 1 (PCR) Not Detected (NotDetected) 04/12/24 21:46 Parainfluenza 2 (PCR) Not Detected (NotDetected) 04/12/24 21:46 Parainfluenza 3 (PCR) Not Detected (NotDetected) 04/12/24 21:46 Parainfluenza 4 (PCR) Not Detected (NotDetected) 04/12/24 21:46 RSV (PCR) Not Detected (NotDetected) 04/12/24 21:46 Entero/Rhino (PCR) Not Detected (NotDetected) 04/12/24 21:[address] 04/12/24 22:06 CR Exam(s): CT HEAD Without Contrast EXAM: CT Head Without Intravenous Contrast CLINICAL HISTORY: Reason for exam: neuro deficit, acute stroke suspected. TECHNIQUE: Axial computed tomography images of the head/brain without intravenous contrast. CTDI is 36.67 mGy and DLP is 625.8 mGy-cm. Automated exposure control was utilized for the study. A dose lowering technique was utilized adhering to the principles of ALARA. COMPARISON: MRI brain FINDINGS: Brain: Generalized parenchymal volume loss. Periventricular and deep cerebral white matter hypoattenuation suggesting chronic small vessel ischemic change. Quan-white matter differentiation maintained. No hemorrhage, mass effect, parenchymal edema, or midline shift. Ventricles: Unremarkable. No hydrocephalus. Bones/joints: Unremarkable. No acute fracture. Soft tissues: Unremarkable. Vasculature: Intracranial atherosclerosis. No hyperdense vessel sign. Sinuses: Unremarkable as visualized. Mastoid air cells: Unremarkable as visualized. No mastoid effusion. Orbits: Bilateral lens replacements. IMPRESSION: No acute intracranial process. Communications: Call Doctor Stroke Electronically signed by: Jagruti Casanova M.D. 04/12/24 22:32 PM Head MRA 04/13/24 00:28 Exam(s): MRA HEAD Without Contrast EXAM: MR Angiography Head Without Intravenous Contrast CLINICAL HISTORY: Reason for exam: stroke like sx. TECHNIQUE: Magnetic resonance angiography images of the head without intravenous contrast. COMPARISON: CT head of the same date FINDINGS: Right internal carotid artery: No acute findings. Intracranial segment is patent with no significant stenosis. No aneurysm. Right anterior cerebral artery: Unremarkable. No occlusion or significant stenosis. No aneurysm. Right middle cerebral artery: Unremarkable. No occlusion or significant stenosis. No aneurysm. Right posterior cerebral artery: Unremarkable. No occlusion or significant stenosis. No aneurysm. Right vertebral artery: Unremarkable as visualized. Left internal carotid artery: No acute findings. Intracranial segment is patent with no significant stenosis. No aneurysm. Left anterior cerebral artery: Unremarkable. No occlusion or significant stenosis. No aneurysm. Left middle cerebral artery: Unremarkable. No occlusion or significant stenosis. No aneurysm. Left posterior cerebral artery: Unremarkable. No occlusion or significant stenosis. No aneurysm. Left vertebral artery: Unremarkable as visualized. Basilar artery: Unremarkable. No occlusion or significant stenosis. No aneurysm. IMPRESSION: Normal head/brain MRA. Electronically signed by: Jagruti Casanova M.D. 04/13/24 01:14 AM Diagnostic Findings EKG as per my interpretation :Rate 75, LAD, LSB, anterior infarct, no ischemia
[2024-04-13] MEDS: MAGNESIUM SULFATE / D5W 1 GM/100 ML BAG IV ONE (01:55)
[2024-04-13] MEDS ORDERED: ACETAMINOPHEN 325 MG TAB PO PRN (02:00)
[2024-04-13] MEDS ORDERED: PHARMACIST DISCHARGE MED REC CONSULT PRN (02:00)
[2024-04-13] MEDS: AMPICILLIN/SULBACTAM SOD 3,000 MG/100 ML BAG IV STA (02:25)
--- NOTE | 2024-04-13 02:34 | Magnetic Resonance Report ---
Exam(s): MRI HEAD Without Contrast EXAM: MR Head Without Intravenous Contrast CLINICAL HISTORY: Reason for exam: stroke like symptoms. TECHNIQUE: Magnetic resonance images of the head/brain without intravenous contrast in multiple planes. COMPARISON: CT head 04/12/22 FINDINGS: Brain: Unremarkable. No diffusion restriction to suggest acute cerebral ischemia. No acute intracranial hemorrhage. No mass-effect or shift. Normal proximal intracranial flow voids. Generalized parenchymal volume loss. Periventricular and deep cerebral white matter FLAIR signal hyperintensity consistent with chronic small vessel ischemic disease. Ventricles: Unremarkable. No hydrocephalus. Bones/joints: Unremarkable. No acute fracture. Sinuses: Unremarkable as visualized. Mastoid air cells: Unremarkable as visualized. No mastoid effusion. Orbits: Bilateral lens replacements. IMPRESSION: No acute intracranial findings. Electronically signed by: Jagruti Casanova M.D. 04/13/24 02:33 AM
--- NOTE | 2024-04-13 04:17 | Ultrasound Report ---
Exam(s): US VENOUS BILATERAL LOWER EXTREMITIES EXAM: US Duplex Bilateral Lower Extremities Veins CLINICAL HISTORY: Reason for exam: leg swelling. TECHNIQUE: Real-time duplex ultrasound scan of the bilateral lower extremity veins integrating B-mode two-dimensional vascular structure, Doppler spectral analysis, color flow Doppler imaging and compression. COMPARISON: No relevant prior studies available. FINDINGS: Right deep veins: Unremarkable. No DVT in the right common femoral, femoral, proximal deep femoral or popliteal veins. The veins demonstrate normal color flow, are normally compressible, with normal phasic flow and/or augmentation response. Right superficial veins: Right great saphenous vein not visualized. Left deep veins: Unremarkable. No DVT in the left common femoral, femoral, proximal deep femoral or popliteal veins. The veins demonstrate normal color flow, are normally compressible, with normal phasic flow and/or augmentation response. Left superficial veins: Unremarkable. No thrombus in the visualized left great saphenous vein. Soft tissues: No acute findings. IMPRESSION: No evidence of acute DVT. Electronically signed by: Jagruti Casanova M.D. 04/13/24 04:16 AM
[2024-04-13] MEDS ORDERED: GLUCAGON FOR INJ 1 MG VIAL SQ PRN (04:37)
[2024-04-13] MEDS ORDERED: GLUCOSE 10 TAB/TUBE PO PRN (04:37)
[2024-04-13] MEDS ORDERED: GLUCOSE 40% GEL 15 GM TUBE PO PRN (04:37)
[2024-04-13] MEDS ORDERED: DEXTROSE 50% 50 ML SYRINGE IV PRN (04:37)
[2024-04-13] MEDS ORDERED: CARBOHYDRATES FOR HYPOGLYCEMIA PO PRN (04:37)
[2024-04-13] MEDS: PROMETHAZINE 6.25 MG/50.25 ML BAG IV PRN (04:40)
[2024-04-13] MEDS: CLOPIDOGREL BISULFATE 300 MG TAB PO STA (04:42)
[2024-04-13] MEDS: INSULIN ASPART PER UNIT CHARGE SC SCH (04:56)
[2024-04-13] MEDS: BACLOFEN 10 MG TAB PO SCH (07:21)
[2024-04-13] MEDS: ESCITALOPRAM OXALATE 20 MG TAB PO SCH (07:22)
[2024-04-13] MEDS: ASPIRIN 81 MG ECTAB PO SCH (07:22)
[2024-04-13] MEDS: ATORVASTATIN 40 MG TAB PO SCH (07:23)
[2024-04-13] MEDS: ENOXAPARIN INJ 40 MG/0.4 ML SYR SQ SCH (07:23)
[2024-04-13] MEDS: PANTOprazole 40 MG TAB PO SCH (07:23)
--- NOTE | 2024-04-13 07:38 | XRay Report ---
XR chest 1V portable HISTORY: fever COMPARISON: None. FINDINGS: The lungs are clear. Cardiac silhouette is normal in size. No pleural effusions. No pneumot horax. Calcifications and surgical clips within the left axilla/breast. IMPRESSION: No acute process. ACT 112: Negative or not required by law. Electronically signed by: Micah Mckenna M.D. 04/13/2024 7:37 AM
--- NOTE | 2024-04-13 07:39 | Ultrasound Report ---
BILATERAL CAROTID DOPPLER STUDY HISTORY: Transient ischemic attack. COMPARISON: None. TECHNIQUE: Real-time, grayscale, and color Doppler sonography of the carotid arteries was performed. Imaging reviewed in the transverse and longitudinal planes. All measurements were calculated based on NASCET criteria. FINDINGS: Antegrade flow is seen in the bilateral vertebral arteries. Minimal calcified plaque within the bilateral carotid bifurcations. The peak systolic velocity within the right ICA is 83 cm/s. The right systolic ratio is 1.5. The peak systolic velocity within the left ICA is 79 cm/s. The left systolic ratio is 1.1. IMPRESSION: No hemodynamically significant stenosis seen within the carotid arteries. ACT 112: Negative or not required by law. Electronically signed by: Micah Mckenna M.D. 04/13/2024 7:38 AM
[2024-04-13 08:03] LABS: BUN Creatinine Ratio 12.9 (10-20); Calcium 9.2 mg/dl (8.6-10.3); Chol HDL Ratio 3.3 (0-5); Creatinine Clr Calc Pharmacy 70.5 ml/min; Est GFR (African American) 100.3 ml/min; Est GFR (Non-African American) 86.6 ml/min
[2024-04-13] MEDS: ONDANSETRON INJ 2 MG/ML 2 ML VIAL IV STA (08:57)
[2024-04-13 09:16] LABS: Basophils # (auto) 0.02 K/uL (0.00-0.20); Basophils % (auto) 0.3 %; Eosinophils # (auto) 0.01 K/uL (0.00-0.50); Eosinophils % (auto) 0.1 %; Hematocrit (blood only) 36.7 % (37.0-47.0); Hemoglobin 12.5 g/dl (12.0-16.0); Immature Granulocytes # (auto) 0.02 K/uL (0.01-0.20); Immature Granulocytes % (auto) 0.3 %; Lymphocytes # (auto) 0.82 K/uL (1.20-3.40); Lymphocytes % (auto) 10.7 %; Mean Corpuscular Hemoglobin 30.6 pg (25.0-34.0); Mean Corpuscular Hgb Conc 34.1 g/dL (32.0-36.0); Mean Corpuscular Volume 89.7 fL (80.0-100.0); Mean Platelet Volume 9.1 fL (9.4-12.4); Monocytes # (auto) 0.44 K/uL (0.11-0.59); Monocytes % (auto) 5.8 %; Neutrophils # (auto) 6.33 K/uL (1.40-6.50); Neutrophils % (auto) 82.8 %; Platelet Count 241 K/uL (130-400); RDW Coefficient of Variation 12.4 % (11.5-14.5); RDW Standard Deviation 41.4 fL (36.4-46.3); Red Blood Count 4.09 M/uL (4.20-5.40); White Blood Count 7.64 K/ul (4.8-10.8)
--- OUTSIDE RECORDS SUMMARY | 2024-04-13 09:17 | External Medical Summary | Summary of Care ---
Author Name Unknown Organization [facility] Address [address] [address] Phone [phone] Care Team Providers Care Material Preparation Worker Name Role Phone Suzette Brown MD Primary Care Provide r Reason for Visit * Reason Comments Medication Refill Encounter Details Date Type Department Care Team (Late st Contact Info) Description 04/12/2024 Refill Family [address] [phone] Suzette Brown MD [address] [place] [address] [place] [address] Hypothyroidism Allergies Active Allergy Reactions Criticality Noted Date Comments Propoxyphene N-Acetaminophen Hives 011 Gadolinium Hives 08/04/2011 Hydrochlorothiazide 09/13/2023 Severe electrolyte disturbance Hydrocodone 04/14/2023 Itching, pt denies any oxycodone allergy Iodinated Contrast Media Hives 05/21/2010 MRI dye Ivp Dye High 03/13/2003 hives, severe, pt only reacts to the one used for MRI, pt has had IVP dye since. Latex 01/05/2023 Other reaction(s): itching Oxycodone Low 01/05/2023 Other reaction(s): hives Oxycodone-Acetaminophen Hives 05/21/2010 Hives documented as of this encounter (statuses as of 04/12/2024) Medications Medication Sig Dispensed Refills Start Date End Date Status BLOOD GLUCOSE METER KITIndications:DM type 2, goal A1c below 7 use as directed 1 Kit 0 02/07/2012 Active Polyethylene Glycol 3350 17 GM Oral Packet Take 1 Packet by mouth in the morning. Active D-Mannose 500 MG Oral Capsule Take 1,000 mg by mouth in the morning and 1,000 mg before bedtime. Active hydrOXYzine HCl 25 MG Oral Tablet Take 1 Tablet by mouth every 6 hours as needed for Itching. 40 Tablet 2 11/18/2022 Active Additional Information Patient not taking.Reported on 12/07/2023 Baclofen 10 MG Oral Tablet (Lioresal) TAKE ONE TABLET BY MOUTH 3 TIMES PER DAY 270 Tablet 3 04/01/2023 Active Aspirin 81 MG Oral Tablet Delayed ReleaseIndications :Takotsubo cardiomyopathy,Cor onary artery disease involving [place] coronary artery of [place] heart without angina pectoris,HTN, goal below 140/90 Take 1 Tablet by mouth in the morning. 04/29/2023 Active Turmeric 500 MG Oral Capsule Take 1 Capsule by mouth in the morning. Active CoQ10 200 MG Oral Capsule Take 1 Capsule by mouth daily. Active Fluticasone Propionate 50 MCG/ACT Nasal Suspension (Flonase) SPRAY 2 SPRAYS INTO EACH NOSTRIL EVERY DAY Active [employer] Delica Lancets 33G Use as directed. Use to test blood glucose once daily Active [employer]uch Ultra In Vitro Strip (Glucose Blood) Test as directed. Use to test blood glucose once daily Active Trulicity 0.75 MG/0.5ML Subcutaneous Solution Pen-injector (Dulaglutide) Inject 0.75 mg under the skin once a week. 6 mL 3 06/13/2023 Active Esomeprazole Magnesium 40 MG Oral Capsule Delayed ReleaseIndications :Gastroesophageal reflux disease TAKE ONE CAPSULE BY MOUTH EVERY DAY BEFORE BREAKFAST 90 Capsule 3 2023 Active Metoprolol Succinate ER 25 MG Oral Tablet Extended Release 24 Hour (toPROL XL)Indications:Enrike otsubo cardiomyopathy,Cor onary artery disease involving [place] coronary artery of [place] heart without angina pectoris,HTN, goal below 140/90 Take 0.5 Tablets by mouth in the morning and 0.5 Tablets before bedtime. 90 Tablet 3 06/29/2023 Active amLODIPine Besylate 10 MG Oral Tablet (Norvasc) Take 1 Tablet by mouth in the morning. 90 Tablet 3 11/16/2023 Active metFORMIN HCl 1000 MG Oral Tablet (Glucophage)Indica tions:Type 2 diabetes mellitus with hemoglobin A1c goal of less than 7.0% (HCC) TAKE ONE TABLET BY MOUTH TWICE A DAY WITH MORNING AND EVENING MEALS 200 Tablet 2 12/05/2023 5 Active Gabapentin 600 MG Oral Tablet (Neurontin) TAKE ONE TABLET BY MOUTH BEFORE BEDTIME 100 Tablet 1 12/16/2023 5 Active Escitalopram Oxalate 20 MG Oral Tablet (Lexapro) TAKE ONE TABLET BY MOUTH EVERY DAY 90 Tablet 3 12/20/2023 5 Active Spironolactone 25 MG Oral Tablet (Aldactone)Indicat ions:HTN, goal below 140/90 TAKE 1 TABLET BY MOUTH IN THE MORNING. 90 Tablet 3 12/28/2023 Active Valsartan 160 MG Oral Tablet (Diovan)Indication s:Takotsubo cardiomyopathy,HTN , goal below 140/90 Take 1 Tablet by mouth in the morning and 1 Tablet before bedtime. 90 Tablet 3 01/04/2024 Active Atorvastatin Calcium 40 MG Oral Tablet (Lipitor)Indicatio ns:Hyperlipidemia with target LDL less than 70 TAKE ONE TABLET BY MOUTH EVERY DAY 90 Tablet 2 01/30/2024 Active Premarin 0.625 MG/GM Vaginal Cream (Estrogens Conjugated)Indicat ions:Vaginal dryness,Recurrent UTI,Urge incontinence of urine Administer 1 g into the vagina once a week. As directed. 42.5 g 2 03/15/2024 Active clonazePAM 1 MG Oral Tablet (KlonoPIN)Indicati ons:Anxiety state,Insomnia Take 1 Tablet by mouth at bedtime as needed for Anxiety or Insomnia. 30 Tablet 03/20/2024 Active Levothyroxine Sodium 75 MCG Oral Tablet (Levoxyl)Indicatio ns:Hypothyroidism TAKE 1 TABLET BY MOUTH DAILY AT LEAST 30 MINUTES PRIOR TO FIRST MEAL OF THE DAY OR OTHER MEDICATIONS 90 Tablet 1 04/12/2024 5 Active Levothyroxine Sodium 75 MCG Oral Tablet (Levoxyl)Indicatio ns:Hypothyroidism TAKE 1 TABLET BY MOUTH DAILY AT LEAST 30 MINUTES PRIOR TO FIRST MEAL OF THE DAY OR OTHER MEDICATIONS 90 Tablet 3 03/19/2023 4 Discontinue d(Refill) documented as of this encounter (statuses as of 04/12/2024) Active Problems Problem Noted Date Diagnosed Date STEMI (ST elevation myocardial infarction) 03/19 Atherosclerosis of [place] co ronary artery without angina pectoris 09/13/2023 Takotsubo cardiomyopathy 04/28/2023 Left hemiplegia 03/24/2023 Esophageal dysphagia 12/02/2022 Type 2 diabetes mellitus wit h diabetic peripheral angiopathy without gangrene 09/13/2022 Constipation 04/22/2022 Aortic valve sclerosis 03/18/2022 Type 2 diabetes mellitus wit h stage 3a chronic kidney disease, without long-term current use of insulin 08/04/2021 Moderate episode of recurrent major depressive d isorder 09/19/2020 Nodule of lower lobe of right lung 08/11/2018 Type 2 diabetes mellitus wit h diabetic neuropathy, unspecified 07/03/2018 Malignant neoplasm of left female breast 018 Gastroesophageal reflux disease without esophagi tis 02/24/2018 Hx of nonmelanoma skin cancer 07/27/2017 Overview: basal cell carcinoma (L pretibial region) Anxiety state 02/10/2016 Type 2 diabetes mellitus wit h hemoglobin A1c goal of less than 7.0% 02/07/2012 Overview: ICD-10 update of inactive term Dyslipidemia, goal LDL below 100 02/07/2012 ADVANCE DIRECTIVE INFORMATION 10/17/2007 Overview: Yes, Patient instructed to provide copy of advance directive for provider to review and to be scanned into Electronic Medical Record. Hypothyroidism 01/07/2006 HTN, goal below 140/90 01/07/2006 Displacement of lumbar inter vertebral disc without myelopathy 01/07/2006 Overview: L4-l5 disc herniation, 2 epidural injections so far, Dr. James Multiple sclerosis 06/10/2004 Overview: Dx in 1987 Personal history of malignant neoplasm of breast 04/23/2003 Overview: Dx in 1997, Dr. Morales Persistent insomnia Fibromyalgia documented as of this encounter (statuses as of 04/12/2024) Resolved Problems Problem Noted Date Diagnosed Date Resolved Date Hypertensive kidney disease with chronic kidney disease 09/13/2023 09/13/2023 Hypertensive kidney disease with stage 3a chronic kidney disease 08/04/2021 09/09/2022 Stage 3a chronic kidney disease 07/07/2020 09/13/2023 Overview: Per CKD protocol - Per CKD protocol Resistant hypertension 11/13/201909/13 Kidney disease, chronic, sta ge III (GFR 30-59 ml/min) 09/10/2019 07/10/2020 Overview: Per CKD protocol Major depressive disorder, r ecurrent, unspecified 08/15/2019 03/11/2020 Absolute anemia 02/24/2018 05/15/2019 Polyneuropathy associated wi th underlying disease 09/22/2017 10/02/2018 Peripheral neuropathy 06/05/20142017 Acute posthemorrhagic anemia 04/08/2010 12/05/2013 Preoperative examination, unspecified 04/07/2010 12/05/2013 Dyslipidemia, goal to be determined 08/13/2009 02/07/2012 Overview: Per Lipid Taxonomy. Mixed dyslipidemia 05/31/2008 9 Overview: Per Lipid Taxonomy. Anal or rectal pain 05/31/2008 05/09/20 12 Chronic depressive disorder 01/29/2008 09/19/2020 Anal or rectal pain 10/03/2006 05/31/20 08 Overview: Chronic perirectal pain Myalgia and myositis 01/07/2006 012 Overview: Fibromyalgia, Dx with Dr. Powell and Dr. Solomon, 1994 Follow-up examination, [facility] other surgery 04/23/2003 05/09/2012 DCIS (ductal carcinoma in situ) of breast 05/23/2017 Overview: left mastectomy documented as of this encounter (statuses as of 04/12/2024) Immunizations Name Administration Dates Next Due COVID-19 mRNA, LNP-s, No Pre serve, 2-Dose Series (Moderna) 01/05/2022,06/23/2021,10/22/2020,09/24 COVID-19, mRNA, LNP-s, PF, B ooster, 100mcg/0.5mg (Moderna) 06/23/2021 Covid-19, Mrna, Lnp-s, Pf, B ivalent, 50 Mcg, IM, 12 yrs and above (Moderna) 06/27/2022 Pneumococcal Conjugate Vacc, 13 Valent (Prevnar) 05/06/2015 Pneumococcal Polysaccharide PPV23 (Pneumovax) 05/23/2017,05/09/2012 Season Influenza, Quad, PF, Adjuvanted, 65+ Yrs, IM (FLUAD) 05/26/2020 Seasonal Influenza, PF, 6 M & above, IM , (FluLaval or Fluzone) 06/12/2018,05/23/2017 Seasonal Influenza, Quadriva lent Hd (Fluzone Hd) 05/06/2022,06/04/2021 Seasonal Influenza, Quadriva lent, No Preserve, IM 06/10/2016 Seasonal Influenza, Split, I IV3, With Preserve, Inj 05/06/2015,06/05/2014,05/09/2013,05/09,04/29/2011,06/08/2010 Seasonal Influenza, Trivalen t, Adjuvanted, 65+ yrs 04/27/2023,05/15/2019 TDAP, Age 7 and older, IM (Adacel) 06/17/2009 Varicella Zoster Vaccine (Adult) 013,09/25/2012(Deferred: Contraindication) Zoster Vaccine Recombinant (Shingrix) 08/07/2020 ,05/28/2020,10/24/2017 documented as of this encounter Social History Tobacco Use Types Packs/Day Years Used Date Smoking Tobacco: Former Cigarettes 1 20 0 03/29/1978 - 03/29/1998 Smokeless Tobacco: Never Alcohol Use Standard Drinks/Week Comments Yes 0 (1 standard drink = 0.6 oz pur e alcohol) very rare PHQ-2 Answer Date Recorded PHQ Adult Total Score 0 04/14/2023 Hunger Vital Sign Answer Date Recorded Within the past 12 months, y ou worried that your food would run out before you got the money to buy more. Never true 05/05/20 23 Within the past 12 months, t he food you bought just didn't last and you didn't have money to get more. Never true 05/05/2023 Sex and Gender Information Value Date Recorded Sex Assigned at Female 04/09/2021 1:17 PM EDT Gender Identity Female 04/09/2021 1:17 PM EDT Sexual Orientation Straight 04/09/2021 1: 17 PM EDT Job Start Date Occupation Industry Not on file Not on file Not on file documented as of this encounter Miscellaneous Notes * Telephone Encounter - Shannon Thompson [facility] - 04/12/2024 6:45 AM EDTSigned Prescriptions: Disp Refills Levothyroxine Sodium 75 MCG Oral Tablet (L*90 Tab*1 Sig: TAKE 1 TABLET BY MOUTH DAILY AT LEAST 30 MINUTES PRIOR TO FIRST MEAL OF THE DAY OR OTHER MEDICATIONSAuthorizing Provider: SUZETTE BROWNOrderserafin User: SHANNON THOMPSON documented in this encounter Plan of Treatment Upcoming Encounters Date Type Department Care Team (Late st Contact Info) Description 04/17/2024 3:00 PM EDT Nurse Only Ancillary [address] [place] [address] Serg Nurse [address] [place] [phone] 06/11/2024 2:00 PM EDT Office Visit Cardiology, [facility] [address] [place] [address] Dorothy Wallace CRNP [address] [place] [id number] 09/14/2024 3:40 PM EST Office Visit Family Medicine [address] [place] [phone] Suzette Brown MD [address] [place] [address] [place] [address] 02/04/2025 2:20 PM EDT Office Visit Nephrology [address] [place] [address] Nita Mc[facility]hon [facility] [address] [facility] [address] Health Maintenance Due Date Last Done Comments Cologuard 1996 Sigmoidoscopy 1996 DTaP,Tdap,and Td Vaccines (2 - Td or Tdap) 06/17/2019 06/17/2009 Diabetic Eye Exam 05/25/2022 05/25/2021, , 03/17/2020, Additional history exists COVID-19 Vaccine (2022- season) 2023 06/27/2022, 01/05/2022, 06/23/2021, Additional history exists Fecal Occult Blood Test 05/10/2023 05/10/2022, 05/10 CKD HGB USE SMARTSET 37865 03/24/202403/24, 03/24/2023, 02/11/2022, Additional history exists CKD PHOS USE SMARTSET 57281 03/24/202402/27, 02/11/2022, 09/22/2020, Additional history exists Adult Wellness Visit 04/14/2024 04/14/2023, 04/13/2022, 04/09/2021 Depression Monitoring 04/14/2024 04/14/2023 Influenza Vaccine (FLU shot) (#1) 2024 04/27/2023, 05/06/2022, 06/04/2021, Additional history exists GFR 09/05/2024 03/05/2024, 10/28, 09/13/2023, Additional history exists HbA1c 09/05/2024 03/05/2024, 08/29, 03/24/2023, Additional history exists TSH 09/13/2024 09/13/2023, 08/29, 02/11/2022, Additional history exists Albumin/Creatinine Ratio 09/15/2024 024, 12/09/2022, 02/11/2022, Additional history exists Colonoscopy 10/17/2024 10/17/2019, 09/29, 09/05/2014, Additional history exists Colorectal Cancer Screening 10/17/2024 Diabetic Foot Exam 03/14/2025 03/14/2024, 0 03/18/2022, 03/22/2019, Additional history exists DXA Scan 09/21/2026 09/21/2021, 08/30, 08/11/2016, Additional history exists Pneumococcal Vaccine: 65+ Years Completed 05/23/2017, 05/06/2015, 05/09/2012 RETIRED - COLONOSCOPY-EVERY 5 YRS AGES 18-100 Discontinued 10/17/2019, 10/17/2019, 09/05/2014, Additional history exists Zoster Vaccines Completed 08/07/2020, 05/01, 10/24/2017, Additional history exists HPV (Gardasil) Vaccine Aged Out No lo nger eligible based on patient's age to complete this topic Hepatitis B Vaccine Aged Out No longe r eligible based on patient's age to complete this topic MENINGOCOCCAL (MENACTRA/MENVEO) Aged Out No longer eligible based on patient's age to complete this topic documented as of this encounter Medical Devices Implanted Type Area Button Broacher Device Identifier Shelf Expiration Date Model / Serial / Lot Mesh 10 X 14 [id number] - [id number] Implanted:Qty: 1 on 04/07/2010 at OR [facility] N/A: Abdomen [employer] 01/27/2015 [id number] / / [id number] documented as of this encounter Visit Diagnoses Diagnosis Hypothyroidism Unspecified hypothyroidism documented in this encounter Advance Directives * Full Code (Latest Code Status on File) Date Activated Date Inactivated Comments 04/07/2010 7:12 PM 04/13/2010 1:48 PM This order r eflects the patients wishes and were consensually agreed upon. Question Answer Comments Discussion of Advance Directives occurred with: Not Discussed Does the patient have a Living Will? No Does the patient have Health Care Power of Attor stacie? No Healthcare Agents on File Name Relationship Healthcare Agent Relationshi p Communication Florencia Carlos Adult Child Health Care Repr esentative (appointed verbally by patient or by statute hierarchy) [email or web address] Care Teams Material Preparation Worker Relationship Specialty Start Date End Date Suzette Brown MD [address] [place] [address] [place] [phone] PCP - General Family Medicine 08/04/11 documented as of this encounter
--- OUTSIDE RECORDS SUMMARY | 2024-04-13 09:18 | External Medical Summary | Summary of Care ---
Author Name Unknown Organization [facility] Address [address] [facility] [place] [address] Phone [phone] Care Team Providers Care Solar Power Installer Name Role Phone Carlos Alberto Brown MD Primary Care Provide r Encounter Details Date Type Department Care Team (Late st Contact Info) Description 03/23/2024 Telephone [address]rology [address] [place] [phone] Specified, Zz No Resource [address] [place] [address] Allergies Active Allergy Reactions Criticality Noted Date [...] as of this encounter (statuses as of 03/23/2024) Medications Medication Sig Dispensed Refills Start Date [...] Additional Information Patient not taking.Reported on 12/07/2023 Levothyroxine Sodium 75 MCG Oral Tablet (Levoxyl)Indication s:Hypothyroidism TAKE 1 TABLET BY MOUTH DAILY AT LEAST 30 MINUTES PRIOR TO FIRST MEAL OF THE DAY OR OTHER MEDICATIONS 90 Tablet 3 03/19/2023 04/22/2024 Active Baclofen 10 MG Oral Tablet (Lioresal) TAKE ONE TABLET BY MOUTH 3 TIMES PER DAY 270 Tablet 3 04/01/2023 Active Aspirin 81 MG Oral Tablet Delayed ReleaseIndications: Takotsubo cardiomyopathy,New nary artery disease involving yuhaaviatam coronary artery of yuhaaviatam heart without angina pectoris,HTN, goal below 140/90 Take 1 Tablet by mouth in the morning. 04/29/2023 Active Turmeric 500 MG Oral Capsule Take 1 Capsule by mouth in the morning. Active CoQ10 200 MG Oral Capsule Take 1 Capsule by mouth daily. Active Fluticasone Propionate 50 MCG/ACT Nasal Suspension (Flonase) SPRAY 2 SPRAYS INTO EACH NOSTRIL EVERY DAY Active Dyynouch Delica Lancets 33G Use as directed. Use to test blood glucose once daily Active OneTouch Ultra In Vitro Strip (Glucose Blood) Test as directed. Use to test blood glucose once daily Active Trulicity 0.75 MG/0.5ML Subcutaneous Solution Pen-injector (Dulaglutide) Inject 0.75 mg under the skin once a week. 6 mL 3 06/13/2023 Active Esomeprazole Magnesium 40 MG Oral Capsule Delayed ReleaseIndications: Gastroesophageal reflux disease TAKE ONE CAPSULE BY MOUTH EVERY DAY BEFORE BREAKFAST 90 Capsule 3 2023 Active Metoprolol Succinate ER 25 MG Oral Tablet Extended Release 24 Hour (toPROL XL)Indications:Tako tsubo cardiomyopathy,New nary artery disease involving yuhaaviatam coronary artery of yuhaaviatam heart without angina pectoris,HTN, goal below 140/90 Take 0.5 Tablets by mouth in the morning and 0.5 Tablets before bedtime. 90 Tablet 3 06/29/2023 Active amLODIPine Besylate 10 MG Oral Tablet (Norvasc) Take 1 Tablet by mouth in the morning. 90 Tablet 3 11/16/2023 Active metFORMIN HCl 1000 MG Oral Tablet (Glucophage)Indicat ions:Type 2 diabetes mellitus with hemoglobin A1c goal of less than 7.0% (HCC) TAKE ONE TABLET BY MOUTH TWICE A DAY WITH MORNING AND EVENING MEALS 200 Tablet 2 12/05/2023 12/04/2024 Active Gabapentin 600 MG Oral Tablet (Neurontin) TAKE ONE TABLET BY MOUTH BEFORE BEDTIME 100 Tablet 1 12/16/2023 12/15/2024 Active Escitalopram Oxalate 20 MG Oral Tablet (Lexapro) TAKE ONE TABLET BY MOUTH EVERY DAY 90 Tablet 3 12/20/2023 12/19/2024 Active Spironolactone 25 MG Oral Tablet (Aldactone)Indicati ons:HTN, goal below 140/90 TAKE 1 TABLET BY MOUTH IN THE MORNING. 90 Tablet 3 12/28/2023 Active Valsartan 160 MG Oral Tablet (Diovan)Indications :Takotsubo cardiomyopathy,HTN, goal below 140/90 Take 1 Tablet by mouth in the morning and 1 Tablet before bedtime. 90 Tablet 3 01/04/2024 Active Atorvastatin Calcium 40 MG Oral Tablet (Lipitor)Indication s:Hyperlipidemia with target LDL less than 70 TAKE ONE TABLET BY MOUTH EVERY DAY 90 Tablet 2 01/30/2024 Active Premarin 0.625 MG/GM Vaginal Cream (Estrogens Conjugated)Indicati ons:Vaginal dryness,Recurrent UTI,Urge incontinence of urine Administer 1 g into the vagina once a week. As directed. 42.5 g 2 03/15/2024 Active clonazePAM 1 MG Oral Tablet (KlonoPIN)Indicatio ns:Anxiety state,Insomnia Take 1 Tablet by mouth at bedtime as needed for Anxiety or Insomnia. 30 Tablet 03/20/2024 Active documented as of this encounter (statuses as of 03/23/2024) Active Problems Problem Noted Date Diagnosed Date STEMI (ST elevation myocardial infarction) 03/19 Atherosclerosis of yuhaaviatam co ronary artery without angina pectoris 09/13/2023 [...] as of this encounter (statuses as of 03/23/2024) Resolved Problems Problem Noted Date Diagnosed Date [...] Powell and Dr. Solomon, 1994 Follow-up examination, [facility] other surgery 04/23/2003 05/09/2012 DCIS (ductal carcinoma in situ) of breast 05/23/2017 Overview: left mastectomy documented as of this encounter (statuses as of 03/23/2024) Immunizations Name Administration Dates Next Due COVID-19 [...] encounter Miscellaneous Notes * Telephone Encounter - Brielle Hinkle OSA - 03/23/2024 10:20 AM EDT DME order, face sheet, insurance info, and office note faxed to [employer] with directions to send to [facility] in [place]. ----- Message from Tish Mcintyre sent at 03/19/2024 1:46 PM EDT ----- Please fax DME order to [facility] in [place] thx documented in this encounter Plan of Treatment Upcoming Encounters Date Type Department Care Team (Late st Contact Info) Description 04/17/2024 3:00 PM EDT Nurse Only Ancillary [address] [place] [address] Serg, Nurse Annual [address] [place] [address] 06/11/2024 2:00 PM EDT [facility] [place] [address] Dorothy Wallace CRNP [address] [place] [address] 09/14/2024 3:40 PM EST Office Visit Family Medicine [address] [place] [phone] Carlos Alberto Brown MD [address] [place] [address] [place] [address] 02/04/2025 2:20 PM EDT Office Visit Nephrology [address] [place] [address] Nita Mcmahon MD [address] [facility], [facility] Health Maintenance Due Date Last Done Comments Cologuard 1996 Sigmoidoscopy 1996 DTaP,Tdap,and Td Vaccines (2 - Td or Tdap) 06/17/2019 06/17/2009 Diabetic Eye Exam 05/25/2022 05/25/2021, , 03/17/2020, Additional history exists COVID-19 Vaccine ( season) 2023 06/27/2022, 01/05/2022, 06/23/2021, Additional history exists Fecal Occult Blood Test 05/10/2023 05/10/2022, 05/10 CKD HGB USE SMARTSET 31230 03/24/202403/24, 03/24/2023, 02/11/2022, Additional history exists CKD PHOS USE SMARTSET 77024 03/24/202402/27, 02/11/2022, 09/22/2020, Additional history exists Depression Monitoring 04/14/2024 04/14/2023 Influenza Vaccine (FLU [...] Completed 08/07/2020, 05/01, 10/24/2017, Additional history exists *BASELINE EKG FOR HTN Completed 05/13/2023, 011 HPV (Gardasil) Vaccine Aged Out No lo nger eligible based on patient's age to complete this topic Hepatitis B Vaccine Aged Out No longe r eligible based on patient's age to complete this topic MENINGOCOCCAL (MENACTRA/MENVEO) Aged Out No longer eligible based on patient's age to complete this topic documented as of this encounter Medical Devices Implanted Type Area Rubber Tubing Backer Device Identifier Shelf Expiration Date Model / Serial / Lot Mesh 10 X 14 [id number] - [id number] Implanted:Qty: 1 on 04/07/2010 at OR [facility] N/A: Abdomen [employer] 01/27/2015 [id number] / / [id number] documented as of this encounter Advance Directives * Full Code [...] verbally by patient or by statute hierarchy) [email or web address] Care Teams Solar Power Installer Relationship Specialty Start Date End Date Carlos Alberto Brown MD [address] [place] [address] [place] [phone] PCP - General Family Medicine 08/04/11 documented as of this encounter
--- OUTSIDE RECORDS SUMMARY | 2024-04-13 09:18 | External Medical Summary | Summary of Care ---
Author Name Unknown Organization [facility] Address [address] [facility] [place] [address] Phone [phone] Care Team Providers Care Director Of Hotel Name Role Phone Carlos Alberto Brown MD Primary Care Provide r Reason for Visit * Reason Onset Date Comments Remote Patient Monitoring Alert 02/27/2024 Encounter Details Date Type Department Care Team (Late st Contact Info) Description 02/27/2024 Home Monitoring Care Coordination [address] [place] [address] HeppdMere betancourt LPN HTN, goal below 130/80* Allergies Active Allergy Reactions Criticality Noted Date [...] as of this encounter (statuses as of 02/27/2024) Medications Medication Sig Dispensed Refills Start Date [...] ReleaseIndications: Takotsubo cardiomyopathy,New nary artery disease involving tulalip coronary artery of tulalip heart without angina pectoris,HTN, goal below 140/90 Take 1 Tablet by mouth in the morning. 04/29/2023 Active Melatonin 5 MG Oral Capsule Take 1 Capsule by mouth at bedtime. Active Turmeric 500 MG Oral Capsule Take 1 Capsule by mouth in the morning. Active CoQ10 200 MG Oral Capsule Take 1 Capsule by mouth daily. Active Fluticasone Propionate 50 MCG/ACT Nasal Suspension (Flonase) SPRAY 2 SPRAYS INTO EACH NOSTRIL EVERY DAY Active [employer] Delica Lancets 33G Use as directed. Use to test blood glucose once daily Active [employer] Ultra In Vitro Strip (Glucose Blood) Test [...] XL)Indications:Tako tsubo cardiomyopathy,New nary artery disease involving tulalip coronary artery of tulalip heart without angina pectoris,HTN, goal below 140/90 [...] EVERY DAY 90 Tablet 2 01/30/2024 Active clonazePAM 1 MG Oral Tablet (KlonoPIN)Indicatio ns:Anxiety state,Insomnia Take 1 Tablet by mouth at bedtime as needed for Anxiety or Insomnia. 30 Tablet 02/15/2024 Active documented as of this encounter (statuses as of 02/27/2024) Active Problems Problem Noted Date Diagnosed Date Atherosclerosis of tulalip co ronary artery without angina pectoris 09/13/2023 Takotsubo cardiomyopathy 04/28/2023 Left hemiplegia 03/24/2023 Type 2 diabetes mellitus wit h diabetic peripheral angiopathy without gangrene 09/13/2022 Constipation 04/22/2022 Aortic valve sclerosis 03/18/2022 Type 2 diabetes mellitus wit h stage 3a chronic kidney disease, without long-term current use of insulin 08/04/2021 Moderate episode of recurrent major depressive d isorder 09/19/2020 Nodule of lower lobe of right lung 08/11/2018 Type 2 diabetes mellitus wit h diabetic neuropathy, unspecified 07/03/2018 Gastroesophageal reflux disease without esophagi tis 02/24/2018 [...] as of this encounter (statuses as of 02/27/2024) Resolved Problems Problem Noted Date Diagnosed Date [...] [place] and Dr. Solomon, 1994 Follow-up examination, [facility] wing other surgery 04/23/2003 05/09/2012 DCIS (ductal carcinoma in situ) of breast 05/23/2017 Overview: left mastectomy documented as of this encounter (statuses as of 02/27/2024) Immunizations Name Administration Dates Next Due COVID-19 [...] on file documented as of this encounter Progress Notes * Mere Stephens LPN - 02/27/2024 4:05 PM EDT Thank you for notifying us. MEAN Goal Adjusted as directed below. Mere Stephens LPN Nurse Navigator [address] * Roxanne Ramirez RPh - 02/27/2024 3:38 PM EDT Per on 02/06 [facility] note, modified target of < 140/90. Systolic Diastolic Pulse Systolic Diastolic 138 72 Average 133 73 136 72 137 76 High 77 77 133 77 Low 69 69 114 73 130 69 Range 8 8 125 73 Count 9 9 153 77 131 71 Readings remaining at goal. Routing to team to make aware. Roxanne Ramirez RPh, PharmD Clinical Pharmacist - [facility] 02/27/2024, 3:38 PM [phone] * Mere Stephens LPN - 02/27/2024 9:34 AM EDT [place] [phone] [place] Wilfredomili is currently participating in the [facility] Hypertension Management Program and had a reading on 02/27/2024 of 138/72. Pt has alerted for an Average BP over 7 days >/= 130/80 . Parameters are currently set as follows: Average BP over 7 days >/= 130/80 Singular Systolic BP Reading </= 90 or >/=180 Singular Diastolic BP Reading </= 50 or >/=120 Patient is not reporting new symptoms or concerns. The patient does have all her blood pressure medications and is taking them as prescribed. Please review the recent history of home RPM readings in Epic Synopsis Flowsheets and work with your clinical staff if any additional actions or interventions are required. If you would like to customize the alert parameters and/or instructions for this patient, please let me know and we can have them changed. Thank you! Mere Stephens LPN documented in this encounter Plan of Treatment Upcoming Encounters Date Type Department Care Team (Late st Contact Info) Description 03/05/2024 11:00 AM EDT Laboratory Laboratory [address] [place] [phone] [place] [address] 03/15/2024 2:00 PM EDT Office Visit [address] [place] [phone] Neha Quiles CRNP [address] [place] [address] [place] [address] 03/19/2024 1:00 PM EDT Telemedicine Neurology [address] [place] [phone] Tish Mcintyre PA-C [address] [facility] [place] [phone] 04/17/2024 3:00 PM EDT Nurse Only Ancillary [address] [place] [address] [place], Nurse [address] [place] [address] 06/11/2024 2:00 PM EDT Office Visit Cardiology, [facility] [address] [place] [address] Dorothy Wallace CRNP [address] [place] [address] 09/14/2024 3:40 PM EST Office Visit Family [address] [place] [phone] Carlos Alberto Brown MD [address] [place] [address] [place] [address] 02/04/2025 2:20 PM EDT Office Visit Nephrology [address] [place] [address] Nita Mcmahon MD [address] [facility] [place] [address] Health Maintenance Due Date Last Done Comments Cologuard 1996 Sigmoidoscopy 1996 DTaP,Tdap,and Td Vaccines (2 - Td or Tdap) 06/17/2019 06/17/2009 Diabetic Eye Exam 05/25/2022 05/25/2021, , 01/08/2019, Additional history exists Diabetic Foot Exam 03/18/2023 03/18/2022, 0 03/22/2019, 02/24/2018, Additional history exists COVID-19 Vaccine ( season) 2023 06/27/2022, 01/05/2022, 06/23/2021, Additional history exists Fecal Occult Blood Test 05/10/2023 05/10/2022, 05/10 HbA1c 03/13/2024 09/13/2023, 02/27, 12/09/2022, Additional history exists CKD HGB USE SMARTSET 85739 03/24/202403/24, 03/24/2023, 02/11/2022, Additional history exists CKD PHOS USE SMARTSET 85803 03/24/202402/27, 02/11/2022, 09/22/2020, Additional history exists Depression Monitoring 04/14/2024 04/14/2023 Influenza Vaccine (FLU shot) (#1) 2024 04/27/2023, 05/06/2022, 06/04/2021, Additional history exists GFR 05/18/2024 11/16/2023, 08/29, 07/22/2023, Additional history exists TSH 09/13/2024 09/13/2023, 08/29, 02/11/2022, Additional history exists Albumin/Creatinine Ratio 09/15/2024 024, 12/09/2022, 02/11/2022, Additional history exists Colonoscopy 10/17/2024 10/17/2019, 09/29, 09/05/2014, Additional history exists Colorectal Cancer Screening 10/17/2024 DXA Scan 09/21/2026 09/21/2021, 08/30, 08/11/2016, Additional history exists Pneumococcal Vaccine: 65+ Years Completed 05/23/2017, 05/06/2015, 05/09/2012 RETIRED - COLONOSCOPY-EVERY 5 YRS AGES 18-100 Discontinued 10/17/2019, 10/17/2019, 09/05/2014, Additional history exists Zoster Vaccines Completed 08/07/2020, 05/01, 10/24/2017, Additional history exists GARDASIL-HPV IMMUNIZATION SERIES Aged Out No longer eligible based on patient's age to complete this topic Hepatitis B Aged Out No longer eligi ble based on patient's age to complete this topic MENINGOCOCCAL (MENACTRA/MENVEO) Aged Out No longer eligible based on patient's age to complete this topic documented as of this encounter Medical Devices Implanted Type Area Director Of Hotel Device Identifier Shelf Expiration Date Model / Serial / Lot Mesh 10 X 14 [id number] - [id number] Implanted:Qty: 1 on 04/07/2010 at OR [facility] N/A: Abdomen [employer] 01/27/2015 [id number] / / [id number] documented as of this encounter Visit Diagnoses Diagnosis HTN, goal below 130/80- Primary Unspecified essential hypertension documented in this encounter Advance Directives * [...] verbally by patient or by statute hierarchy) [email or web address] Care Teams Director Of Hotel Relationship Specialty Start Date End Date Carlos Alberto Brown MD [address] [place] [address] [place] [phone] PCP - General Family Medicine 08/04/11 documented as of this encounter
--- OUTSIDE RECORDS SUMMARY | 2024-04-13 09:18 | External Medical Summary | Summary of Care ---
Author Name Unknown Organization [facility] Address [address] [facility] [place] [address] Phone [phone] Care Team Providers Care Hotel Or Motel Cleaning Supervisor Name Role Phone Carlos Alberto Brown MD Primary Care Provide r Reason for Visit * Reason Comments Multiple Sclerosis Encounter Details Date Type Department Care Team (Late st Contact Info) Description 03/19/2024 1:00 PM EDT Telemedicine Neurology [address] [place] [phone] Tish Mcintyre PA-C [address] [place] [address] Multiple sclerosis (HCC)* Allergies Active Allergy Reactions Criticality Noted Date [...] as of this encounter (statuses as of 03/19/2024) Medications Medication Sig Dispensed Refills Start Date [...] ReleaseIndications: Takotsubo cardiomyopathy,New nary artery disease involving [place] co[place] coronary artery of conf[place] co[place] heart without angina pectoris,HTN, goal below 140/90 Take 1 Tablet by mouth in the morning. 04/29/2023 Active Turmeric 500 MG Oral Capsule Take 1 Capsule by mouth in the morning. Active CoQ10 200 MG Oral Capsule Take 1 Capsule by mouth daily. Active Fluticasone Propionate 50 MCG/ACT Nasal Suspension (Flonase) SPRAY 2 SPRAYS INTO EACH NOSTRIL EVERY DAY Active Wyliouch Delica Lancets 33G Use as directed. Use [...] XL)Indications:Tako tsubo cardiomyopathy,New nary artery disease involving [place] co[place] coronary artery of conf[place] co[place] heart without angina pectoris,HTN, goal below 140/90 [...] Anxiety or Insomnia. 30 Tablet 02/15/2024 Active Premarin 0.625 MG/GM Vaginal Cream (Estrogens Conjugated)Indicati ons:Vaginal dryness,Recurrent UTI,Urge incontinence of urine Administer 1 g into the vagina once a week. As directed. 42.5 g 2 03/15/2024 Active documented as of this encounter (statuses as of 03/19/2024) Active Problems Problem Noted Date Diagnosed Date STEMI (ST elevation myocardial infarction) 03/19 Atherosclerosis of conf[place] coos co ronary artery without angina pectoris 09/13/2023 [...] as of this encounter (statuses as of 03/19/2024) Resolved Problems Problem Noted Date Diagnosed Date [...] Powell and Dr. Solomon, 1994 Follow-up examination, [facility] other surgery 04/23/2003 05/09/2012 DCIS (ductal carcinoma in situ) of breast 05/23/2017 Overview: left mastectomy documented as of this encounter (statuses as of 03/19/2024) Immunizations Name Administration Dates Next Due COVID-19 [...] as of this encounter Progress Notes * Tish Mcintyre PA-C - 03/19/2024 1:02 PM EDT [facility] MULTIPLE SCLEROSIS CLINIC FOLLOW UP PATIENT VISIT NOTE Patient forgot about video appt. I called her at 1:08PM and she said she would log on. Name: Ofelia Beach Referring provider: Carlos Alberto Brown MD PCP: Carlos Alberto Brown MD SUBJECTIVE Chief Complaint: Chief Complaint Patient presents with Multiple Sclerosis History of Present Illness (HPI): Ofelia Beach returns to [facility] for treatment of multiple sclerosis and related symptoms. Patient presents with their . Ofelia Beach continues without disease-modifying therapy. Discontinued Avonex in 2019 due to age and immune senescence. She has always had numb feet but the neuropathic pain is getting worse. Feels at night like someoneis pounding nails into her feet. rubs voltaren gel on her feet which helps. Started getting achey into her jaw at the TMJ BL. It will come and go. Urinary urgency at bedtime, wears pads to bed. Bedside commode would be helpful. Got a L AFO and has not had any falls since then. Since last clinic visit, patient denies any new focal neurologic symptoms suggestive of inflammatory disease activity. Specifically patient denies any episodes lasting greater than 24 hours of painful vision loss, double vision, oscillopsia, slurred speech, vertigo, incoordination, focal weakness, bowel or bladder incontinence, focal sensory loss, or Lhermitte's. Summary from prior visit notes: Visit with Tish Mcintyre PA-C on 03/07/2023: Since last visit has had a couple of falls. Uses a cane, sometimes a walking stick. Has a chairliftat home. Some issues with stairs, numbness in the feet and visual perception issues. L foot drag Fatigue is her greatest limiting factor. Not interested in PT right now. Her massage therapist alsostretches her. She will be starting [employer] next week! 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 MS JOHAN: Vision is good. There is no color desaturation, no diplopia, no blurred or obscured vision Motor features: she does drag her left leg, but she cannot identify a relapse that caused the leg to become weak. Spasticity: yes - gets cramps in the front of her calves. Uses CoQ10. Also on Baclofen 10mg TID. Pain: Gabapentin - neuropathy; also has degenerative disk issues and lumbar back pain. She was previously getting ESIs. Follows with Physiatry, and feels great. Sensory features: Bilateral feet Ambulation/Gait: Improved. She does trip on flat road; she feels like she has no depth perception with curbs or steps. Uses an SP cane. Falls: a few in the past six months. Estimates can walk >500m with single point assistance. Coordination features: some imbalance Speech/Language/Swallow: had her throat stretched last spring due to problems with choking Bowel and bladder functioning: generally doing better with bladder but wears pads. Constipation, takes miralax. Cognition: rare concerns with word retrieval and sometimes comprehension. Forgets where she is going with stories. Mood: has anxiety, does well on Lexapro. Fatigue: yes, and becomes lethargic. This is her biggest complaint. Stays home most of the time butdoes light housework daily. Sleep: fair/good - about 10 hours in bed, but she reads before she goes to sleep. May snore. Uhthoffs: fatigues her, but no worsening symptoms Lhermitte's: denies MS Hug: Was her first symptom - no longer MS History: Initial Symptoms Onset (year and quality): 1977: numbness in the peritoneal area - then developed MS hug around the ribs; she then developed numbness on the arch of her right foot. At that time she went to [facility] - was actually with her daughter. After the baby was born, she developed bilateral hand sensory changes. Saw Dr. Valentine at that time and remained stable for a bit. 1987: A few years later - attack with similar symptoms, saw a neurosurgeon in [facility]. She did have a spinal tap (+ bands) and MRI at that time. And it was felt to be consistent with MS Was on no DMT until Copaxone - was recommended not to start anything because she had been doing so well for 2 decades. Around 2000 started Copaxone w/Dr. Galicia. Was getting significant ISRs. Switchedto Avonex since 2002. Over the past 20+ years, she has not detected any relapses or progression - maybe some mild things brought on by stressors, but nothing significant. She will occasionally use a single point cane whenshe is out in public or in large cities, mostly to help keep her balance Note per Dr. Aleman's note: Last clinical relapse was reported: in 04/2018: numbness in both upper extremities (lasting until now, => in retrospect, that may not represent a true clinical relapse, as there was no new change on MRI; it could have been due to cervical radiculopathy); in fall 2016 symptoms included vertigo and poor balance (lasting 3 months, under stress at the time). Initial Diagnosis (year): 1976 MRI Brain: 01/2021: stable, no new lesions 06/2020: stable, to less conspicuous lesions; mild volume loss Stable for a number of years - moderate to severe T2 hyperintense lesions periventricularly, juxtacortically, with a number of T1 correlates. The last scans available to me are from 2017; [facility] which [facility]. I did also look at the new temporal lesion described on the 01/2018 scan and agree this was present on prior scans. She cannot have CARSON due to allergy. 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 Multiple Sclerosis: Mom - progressive Review of Symptoms (ROS): All other systems were reviewed and significant positives and negatives are listed in HPI. OBJECTIVE Physical examination is limited due to the visit being over video. Constitutional: Normally developed, well nourished, no deformities, well groomed. Alert, oriented to person, place, time. Speech normal; no dysarthria, stuttering, or slurred speech. Facial movements normal. Imaging: MRI brain 01/28/2021: IMPRESSION: 1. No acute intracranial process with no significant change compared with 07/11/2020. 2. There is a stable moderate to severe burden of FLAIR hyperintense demyelinating plaques. ASSESSMENT Impression: In summary, Ofelia Beach is a very pleasant 73 year old female presenting today for relapsing remitting multiple sclerosis follow-up. Patient is currently without disease-modifying therapy. She haslikely reached a stage of immune senescence. She was previously on Copaxone in the early , butswitched to Avonex around , and had been clinically and radiographically stable since thattime. She has not had a true relapse since the late , and describes very subtle features that may be consistent with progressive disease, but also may be age related changes due to low back pain, mechanical issues. At Ofelia's first visit with Dr. Buckley in June 2020, she expressed my agreement with Dr. Aleman thathelen is at an age and has demonstrated enough disease stability that we expect she would not be at risk for inflammatory relapses, and for that reason, it would likely be safe to come off Avonex. She discontinued Avonex at that time, and her 6 month post-discontinuation MRIs were stable. She has clinically been stable over the past 4 years since discontinuing Avonex. She does not require routine imaging at this point. She should continue staying active of mind and body, and I can always order PT if she needs it. Her jaw pain is most consistent with TMJ, not MS related. Her foot pain is responding well to Voltaren gel; she can also try Vapor Rub or capsaicin cream. ICD-10-CM 1. Multiple sclerosis (HCC) G35 PLAN DMT: Continue without DMT Labs: none Imaging: none Vitamin D: continue current dose Symptom management: Continue voltaren gel; consider capsaicin cream or Bandar's vapor rub for neuropathy pain F/u with PCP for TMJ; consider Tylenol, continue baclofen, consider stretches DME order for bedside commode Ofelia Sheeba Beach is to Follow Up: Return in about 1 year (around 03/19/2025) for Clinic Visit, Video to Home. | For: Clinic Visit, Video to Home | Check-out note: 1 year with Tish or Dr. Buckley at [facility], she is to call sooner with any new neurological symptoms, questions or concerns. Patient verbalized her understanding of the above plan and follow up. Additional Information: I spent a total of 29 minutes coordinating, documenting, and providing care for this patient excluding time spent in the performance of separately billed services or time spent by another provider/QHP. Tish Mcintyre PA-C Neurology Physician Cdl A Driver Neuroscience [facility] 03/19/24 1:49 PM documented in this encounter Plan of Treatment Upcoming Encounters Date Type Department Care Team (Late st Contact Info) Description 04/17/2024 3:00 PM EDT Nurse Only Ancillary [address] [place] [address] Nurse Serg [address] [place] [address] 06/11/2024 2:00 PM EDT Office Visit Cardiology, [facility] [address] [facility] [place] [address] Dorothy Wallace CRNP [address] [place] [address] 09/14/2024 3:40 PM EST Office Visit Family Medicine [address] [place] [phone] Carlos Alberto Brown MD [address] [place] [address] [place] [address] 02/04/2025 2:20 PM EDT Office Visit Nephrology [address] [place] [address] Nita Mcmahon MD [address] [facility] [address] Health Maintenance Due Date Last Done Comments Cologuard 1996 Sigmoidoscopy 1996 DTaP,Tdap,and Td Vaccines (2 - Td or Tdap) 06/17/2019 06/17/2009 Diabetic Eye Exam 05/25/2022 05/25/2021, , 01/08/2019, Additional history exists COVID-19 Vaccine ( season) 2023 06/27/2022, 01/05/2022, 06/23/2021, Additional history exists Fecal Occult Blood Test 05/10/2023 05/10/2022, 05/10 CKD HGB USE SMARTSET 19456 03/24/202403/24, 03/24/2023, 02/11/2022, Additional history exists CKD PHOS USE SMARTSET 78983 03/24/202402/27, 02/11/2022, 09/22/2020, Additional history exists Depression [...] this encounter Medical Devices Implanted Type Area Tube Draw Helper Device Identifier Shelf Expiration Date Model / Serial / Lot Mesh 10 X 14 [id number] - [id number] Implanted:Qty: 1 on 04/07/2010 at OR [facility] N/A: Abdomen [employer] 01/27/2015 [id number] / / [id number] documented as of this encounter Visit Diagnoses Diagnosis Multiple sclerosis (HCC)- Primary Multiple sclerosis documented in this encounter Advance Directives * [...] Agents on File Name Relationship Healthcare Agent [facility] Communication Florencia Carlos Adult Child Health Care Repr esentative (appointed verbally by patient or by statute hierarchy) [email or web address] Care Teams Hotel Or Motel Cleaning Supervisor Relationship Specialty Start Date End Date Carlos Alberto Brown MD [address] [place] [address] [place] [phone] PCP - General Family Medicine 08/04/11 documented as of this encounter"
--- OUTSIDE RECORDS SUMMARY | 2024-04-13 09:18 | External Medical Summary ---
Author Name Unknown Address Unknown Organization K01:LABORATORY [facility] - [address] [facility] [address] Laboratory Report Ordering Provider Test Date Status JACQUE JARVIS 03/05/2024 11:10:40 Final Observation Date Value Abnormality Reference (Units ) Status BUN 03/05/2024 11:10:40 23 Above high normal 6-20 (mg/dL) Final Creatinine 03/05/2024 11:10:40 1.0 0.5-1.0 (mg/dL) Final Glomerular filtration rate/1.73 sq M.predicted [Volume Rate/Area] in Serum, Plasma or Blood by Creatinine-based formula (CKD-EPI) 03/05/2024 11:10:40 63 >=60 (mL/min) Final eGFR is calculated based on the CKD-EPI 2020 equation Sodium 03/05/2024 11:10:40 137 135-146 (m mol/L) Final Potassium 03/05/2024 11:10:40 4.8 3.5-5.1 (m mol/L) Final Cl 03/05/2024 11:10:40 100 98-107 (mm ol/L) Final CO2 03/05/2024 11:10:40 25 22-32 (mmo l/L) Final Anion gap 03/05/2024 11:10:40 12 7-15 (mmol /L) Final Glucose 03/05/2024 11:10:40 108 70-120 (mg /dL) Final Calcium 03/05/2024 11:10:40 10.1 8.4-10.2 ( mg/dL) Final Performing Location [facility] [address] [facility] [address]
--- OUTSIDE RECORDS SUMMARY | 2024-04-13 09:18 | External Medical Summary | Summary of Care ---
Author Name Unknown Organization [facility] Address [address] [facility] [place] [address] Phone [phone] Care Team Providers Care Executive Vice President Name Role Phone Carlos Alberto Brown MD Primary Care Provide r Encounter Details Date Type Department Care Team (Late st Contact Info) Description 02/20/2024 Population Health External Data Unspecified Department Allergies Active Allergy Reactions Criticality Noted Date [...] as of this encounter (statuses as of 02/21/2024) Medications Medication Sig Dispensed Refills Start Date [...] ReleaseIndications: Takotsubo cardiomyopathy,New nary artery disease involving [place] coronary artery of [place] heart without angina pectoris,HTN, goal below 140/90 [...] SPRAYS INTO EACH NOSTRIL EVERY DAY Active Solio Delica Lancets 33G Use as directed. Use to test blood glucose once daily Active Giraffe Frienduch Ultra In Vitro Strip (Glucose Blood) Test [...] XL)Indications:Tako tsubo cardiomyopathy,New nary artery disease involving [place] coronary artery of [place] heart without angina pectoris,HTN, goal below 140/90 [...] as of this encounter (statuses as of 02/21/2024) Active Problems Problem Noted Date Diagnosed Date Atherosclerosis of [place] co ronary artery without angina pectoris 09/13/2023 [...] as of this encounter (statuses as of 02/21/2024) Resolved Problems Problem Noted Date Diagnosed Date [...] as of this encounter (statuses as of 02/21/2024) Immunizations Name Administration Dates Next Due COVID-19 [...] on file documented as of this encounter Plan of Treatment Upcoming Encounters Date Type Department Care Team (Late st Contact Info) Description 03/05/2024 11:00 AM EDT Laboratory Laboratory [address] [place] [phone] [address] [place] [address] 03/15/2024 2:00 PM EDT Office Visit Family Medicine [address] [phone] Neha Quiles CRNP [address] [place] [address] [place] [address] 03/19/2024 1:00 PM EDT Telemedicine Neurology [address] [place] [phone] Tish Mcintyre PA-C [address] [facility] [place] [phone] 04/17/2024 3:00 PM EDT Nurse Only Ancillary [address] [place] [address] Serg, Nurse [address] [place] [address] 06/11/2024 2:00 PM EDT Office Visit Cardiology, [facility] [address] [place] [address] Dorothy Wallace CRNP [address] [place] [address] 09/14/2024 3:40 PM EST Office Visit Family Medicine [address] [place] [phone] Carlos Alberto Brown MD [address] [place] [address] [place] [address] 02/04/2025 2:20 PM EDT Office Visit Nephrology [address] [place] [address] Nita Mcmahon MD [address] [place] [address] Health Maintenance Due Date Last Done Comments Cologuard 1996 Sigmoidoscopy 1996 DTaP,Tdap,and Td Vaccines (2 - Td or Tdap) 06/17/2019 06/17/2009 Diabetic Eye Exam 05/25/2022 05/25/2021, , 01/08/2019, Additional history exists Diabetic Foot Exam 03/18/2023 03/18/2022, 0 03/22/2019, 02/24/2018, Additional history exists COVID-19 Vaccine (2022- season) 2023 06/27/2022, 01/05/2022, 06/23/2021, Additional history exists Fecal Occult Blood Test 05/10/2023 05/10/2022, 05/10 HbA1c 03/13/2024 09/13/2023, 02/27, 12/09/2022, Additional history exists CKD HGB USE SMARTSET 33805 03/24/202403/24, 03/24/2023, 02/11/2022, Additional history exists CKD PHOS USE SMARTSET 42107 03/24/202402/27, 02/11/2022, 09/22/2020, Additional history exists Depression Monitoring 04/14/2024 04/14/2023 GFR 05/18/2024 11/16/2023, 08/29, 07/22/2023, Additional history [...] Completed 08/07/2020, 05/01, 10/24/2017, Additional history exists Influenza Vaccine (FLU shot) Completed 04/27/2023, 05/06/2022, 06/04/2021, Additional history exists GARDASIL-HPV IMMUNIZATION SERIES Aged Out No longer eligible based on patient's age to complete this topic Hepatitis B Aged Out No longer eligi ble based on patient's age to complete this topic MENINGOCOCCAL (MENACTRA/MENVEO) Aged Out No longer eligible based on patient's age to complete this topic documented as of this encounter Medical Devices Implanted Type Area Whipped Topping Finisher Device Identifier Shelf Expiration Date Model / Serial / Lot Mesh 10 X 14 [id number] - [id number] Implanted:Qty: 1 on 04/07/2010 at OR [facility] N/A: Abdomen [employer] 01/27/2015 [id number] / / [id number] documented as of this encounter Advance Directives [...] verbally by patient or by statute hierarchy) [email or web address] Care Teams Executive Vice President Relationship Specialty Start Date End Date Carlos Alberto Brown MD [address] [place] [address] [place] [phone] PCP - General Family Medicine 08/04/11 documented as of this encounter
--- OUTSIDE RECORDS SUMMARY | 2024-04-13 09:18 | External Medical Summary | Summary of Care ---
Author Name Unknown Organization [facility] Address [address] [facility] [place] [address] Phone [phone] Care Team Providers Care Stator Plate Washer Name Role Phone Carlos Alberto Brown MD Primary Care Provide r Encounter Details Date Type Department Care Team (Late st Contact Info) Description 03/20/2024 Orders Only Family Medicine [address] [place] [phone] Carlos Alberto Brown MD [address] [place] [address] [place] [address] Allergies Active Allergy Reactions Criticality Noted Date [...] as of this encounter (statuses as of 03/20/2024) Medications Medication Sig Dispensed Refills Start Date [...] ReleaseIndications: Takotsubo cardiomyopathy,New nary artery disease involving agdaagux coronary artery of agdaagux heart without angina pectoris,HTN, goal below 140/90 Take 1 Tablet by mouth in the morning. 04/29/2023 Active Turmeric 500 MG Oral Capsule Take 1 Capsule by mouth in the morning. Active CoQ10 200 MG Oral Capsule Take 1 Capsule by mouth daily. Active Fluticasone Propionate 50 MCG/ACT Nasal Suspension (Flonase) SPRAY 2 SPRAYS INTO EACH NOSTRIL EVERY DAY Active DTT Delica Lancets 33G Use as directed. Use to test blood glucose once daily Active Globevestoruch Ultra In Vitro Strip (Glucose Blood) Test [...] XL)Indications:Tako tsubo cardiomyopathy,New nary artery disease involving agdaagux coronary artery of agdaagux heart without angina pectoris,HTN, goal below 140/90 [...] as of this encounter (statuses as of 03/20/2024) Active Problems Problem Noted Date Diagnosed Date STEMI (ST elevation myocardial infarction) 03/19 Atherosclerosis of agdaagux co ronary artery without angina pectoris 09/13/2023 [...] as of this encounter (statuses as of 03/20/2024) Resolved Problems Problem Noted Date Diagnosed Date [...] Powell and Dr. Solomon, 1994 Follow-up examination, [facility] other surgery 04/23/2003 05/09/2012 DCIS (ductal carcinoma in situ) of breast 05/23/2017 Overview: left mastectomy documented as of this encounter (statuses as of 03/20/2024) Immunizations Name Administration Dates Next Due COVID-19 [...] 3:00 PM EDT Nurse Only Ancillary [address] [place] [address] Serg Nurse [address] [place] [address] 06/11/2024 2:00 PM EDT [facility] [place] [address] Dorothy Wallace CRNP [address] [place] [address] 09/14/2024 3:40 PM EST Office Visit Family Medicine [address] [place] [phone] Carlos Alberto Brown MD [address] [place] [address] [place] [address] 02/04/2025 2:20 PM EDT Office Visit Nephrology [address] [place] [address] Nita Mcmahon MD 200 [place] [address] Health Maintenance Due Date Last Done Comments Cologuard 1996 Sigmoidoscopy 1996 DTaP,Tdap,and Td Vaccines (2 - Td or Tdap) 06/17/2019 06/17/2009 COVID-19 Vaccine (2022- season) 2023 06/27/2022, 01/05/2022, 06/23/2021, Additional history exists Fecal Occult Blood Test 05/10/2023 05/10/2022, 05/10 CKD HGB USE SMARTSET 98864 03/24/202403/24, 03/24/2023, 02/11/2022, Additional history exists CKD PHOS USE SMARTSET 83348 03/24/202402/27, 02/11/2022, 09/22/2020, Additional history exists Depression [...] 03/14/2024, 0 03/18/2022, 03/22/2019, Additional history exists Diabetic Eye Exam 03/20/2025 05/25/2021, , 03/17/2020, Additional history exists DXA Scan 09/21/2026 09/21/2021, [...] this encounter Medical Devices Implanted Type Area Journeyman Apprentice Electricians Device Identifier Shelf Expiration Date Model / Serial / Lot Mesh 10 X 14 [id number] - [id number] Implanted:Qty: 1 on 04[place]07/[place] [facility] [place]A: Abdomen [employer] 01/27/2015 [id number] / / [id number] documented as of this encounter Procedures Procedure Name Priority Date/Time Associated Diagnosis Comments DIABETIC EYE EXAM Routine 05/25/2021 documented in this encounter Results * DIABETIC EYE EXAM (05/25/2021) 05/25/2021 History Per Patient OTHER OUTSIDE LAB (SEE SCANNED REPORT) documented in this encounter Advance Directives * [...] Relationship Healthcare Agent Relationshi p Communication Florencia [facility] Adult Child Health Care Repr esentative (appointed verbally by patient or by statute hierarchy) Care Teams Stator Plate Washer Relationship Specialty Start Date End Date Carlos Alberto Brown MD [address] [place] [address] [place] [address] PCP - General Family Medicine 08/04/11 documented as of this encounter
--- OUTSIDE RECORDS SUMMARY | 2024-04-13 09:18 | External Medical Summary | Summary of Care ---
Author Name Unknown Organization [facility] Address [address] [facility] [address] Phone [phone] Care Team Providers Care Scalp Treatment Operator Name Role Phone Suzette Brown MD Primary Care Provide r Reason for Visit * Reason Onset Date Comments Medication Refill 03/19/2024 Encounter Details Date Type Department Care Team (Late st Contact Info) Description 03/19/2024 Refill [facility] Medicine [address] [phone] Suzette Brown MD [address] [place] [address] [place] [address] Anxiety state; Insomnia Allergies Active Allergy Reactions Criticality Noted Date [...] 12/07/2023 Levothyroxine Sodium 75 MCG Oral Tablet (Levoxyl)Indicatio ns:Hypothyroidism TAKE 1 TABLET BY MOUTH DAILY AT LEAST 30 MINUTES PRIOR TO FIRST MEAL OF THE DAY OR OTHER MEDICATIONS 90 Tablet 3 03/19/2023 Active Baclofen 10 MG Oral Tablet (Lioresal) TAKE ONE TABLET BY MOUTH 3 TIMES PER DAY 270 Tablet 3 04/01/2023 Active Aspirin 81 MG Oral Tablet Delayed ReleaseIndications :Takotsubo cardiomyopathy,Cor onary artery disease involving nez perce coronary artery of nez perce heart without angina pectoris,HTN, goal below 140/90 Take 1 Tablet by mouth in the morning. 04/29/2023 Active Turmeric 500 MG Oral Capsule Take 1 Capsule by mouth in the morning. Active CoQ10 200 MG Oral Capsule Take 1 Capsule by mouth daily. Active Fluticasone Propionate 50 MCG/ACT Nasal Suspension (Flonase) SPRAY 2 SPRAYS INTO EACH NOSTRIL EVERY DAY Active Lenet Delica Lancets 33G Use as directed. Use to test blood glucose once daily Active Typo Keyboardsuch Ultra In Vitro Strip (Glucose Blood) Test [...] XL)Indications:Enrike otsubo cardiomyopathy,Cor onary artery disease involving nez perce coronary artery of nez perce heart without angina pectoris,HTN, goal below 140/90 [...] Anxiety or Insomnia. 30 Tablet 03/20/2024 Active clonazePAM 1 MG Oral Tablet (KlonoPIN)Indicati ons:Anxiety state,Insomnia Take 1 Tablet by mouth at bedtime as needed for Anxiety or Insomnia. 30 Tablet 02/15/2024 4 Discontinue d(Refill) documented as of this encounter (statuses as of 03/20/2024) Active Problems Problem Noted Date Diagnosed Date STEMI (ST elevation myocardial infarction) 03/19 Atherosclerosis of nez perce co ronary artery without angina pectoris 09/13/2023 [...] Powell and Dr. Solomon, 1994 [facility] 04/23/2003 05/09/2012 DCIS (ductal [...] encounter Miscellaneous Notes * Telephone Encounter - Suzette Brown MD - 03/20/2024 12:31 PM EDT Signed Prescriptions: Disp Refills clonazePAM 1 MG Oral Tablet (KlonoPIN) 30 Tab*0 Sig: Take 1 Tablet by mouth at bedtime as needed for Anxiety or Insomnia. Authorizing Provider: SUZETTE BROWN * Telephone Encounter - Tita Perez [facility] - 03/20/2024 8:44 AM EDTPending Prescriptions: Disp Refills clonazePAM 1 MG Oral Tablet (KlonoPIN) 30 Tab*0 Sig: Take 1 Tablet by mouth at bedtime as needed for Anxiety or Insomnia. * Telephone Encounter - Tita Perez [facility] - 03/20/2024 8:42 AM EDT I have reviewed the patients controlled substance dispensing history in the Prescription Drug Monitoring Program in compliance with the [facility] regulations before prescribing a controlled substance. PDMP checked on 03/20/2024. Pending Prescriptions: Disp Refills clonazePAM 1 MG Oral Tablet (KlonoPIN) 30 Tab*0 Sig: Take 1 Tablet by mouth at bedtime as needed for Anxiety or Insomnia. Last Visit: 03/15/2024 (in office), 07/10/2021 (telemedicine) Next Visit: 09/14/2024 Date medication was last filled: 02/16/24 Date medication is due for refill: 03/16/24 Pharmacy: [id number] Is this request for a controlled substance? Yes and Urine Drug Screen Not completed Toxicology results: No results found. However, due to the size of the patient record, not all encounters were searched.Please check Results Review for a complete set of results. Please approve if appropriate. Thank you, Tita Perez, PharmD Clinical Pharmacist [facility] ([facility]) 03/20/24 8:42 AM [phone] documented in this encounter Plan of Treatment Upcoming Encounters Date Type Department Care Team (Late st Contact Info) Description 04/17/2024 3:00 PM EDT Nurse Only Ancillary [address] [place] [address] Serg Nurse [address] [place] [address] 06/11/2024 2:00 PM EDT Office Visit Cardiology, [facility] 132 [place] [address] Dorothy Wallace CRNP [address] [place] [address] 09/14/2024 3:40 PM EST Office Visit Family Medicine [address] [place] [phone] Suzette Brown MD [address] [place] [address] [place] [address] 02/04/2025 2:20 PM EDT Office Visit Nephrology [address] [place] [address] Nita Mcmahon MD 200 [place] [address] Health Maintenance Due Date Last Done Comments Cologuard 1996 Sigmoidoscopy 1996 DTaP,Tdap,and Td Vaccines (2 - Td or Tdap) 06/17/2019 06/17/2009 COVID-19 Vaccine (2022- season) 2023 06/27/2022, 01/05/2022, 06/23/2021, Additional history exists Fecal Occult Blood Test 05/10/2023 05/10/2022, 05/10 CKD HGB USE SMARTSET 02208 03/24/202403/24, 03/24/2023, 02/11/2022, Additional history exists CKD PHOS USE SMARTSET 19013 03/24/202402/27, 02/11/2022, 09/22/2020, Additional history exists Depression [...] this encounter Medical Devices Implanted Type Area Drawer In Device Identifier Shelf Expiration Date Model / Serial / Lot Mesh 10 X 14 [id number] - [id number] [place]planted:Q[place]: 1 [place] [facility] [place] Abdomen [employer] 01/27/2015 [id number] / / [id number] documented as of this encounter Visit Diagnoses Diagnosis Anxiety state Anxiety state, unspecified Insomnia Insomnia, unspecified documented in this encounter Advance Directives * [...] verbally by patient or by statute hierarchy) [email or web address] Care Teams Scalp Treatment Operator Relationship Specialty Start Date End Date Suzette Brown MD [address] [place] [address] [place] [address] PCP - General Family Medicine 08/04/11 documented as of this encounter
--- OUTSIDE RECORDS SUMMARY | 2024-04-13 09:18 | External Medical Summary | Summary of Care ---
Author Name Unknown Organization [facility] Address [address] [facility] [place] [address] Phone [phone] Care Team Providers Care Pega Developer Name Role Phone Carlos Alberto Brown MD Primary Care Provide r Reason for Visit * Reason Onset Date Comments Remote Patient Monitoring Alert 02/27/2024 Encounter Details Date Type Department Care Team (Late st Contact Info) Description 02/27/2024 Home Monitoring Care Coordination [address] [place] [address] HeppdMere betancourt LPN HTN, goal [...] ReleaseIndications: Takotsubo cardiomyopathy,New nary artery disease involving united keetoowah coronary artery of united [place] heart without angina pectoris,HTN, goal below 140/90 [...] SPRAYS INTO EACH NOSTRIL EVERY DAY Active tracxuch Delica Lancets 33G Use as directed. Use to test blood glucose once daily Active tracxuch Ultra In Vitro Strip (Glucose Blood) Test [...] XL)Indications:Tako tsubo cardiomyopathy,New nary artery disease involving united [place] coronary artery of united ke[place]ow[place] heart without angina pectoris,HTN, goal below 140/90 [...] Problem Noted Date Diagnosed Date Atherosclerosis of united ke[place] co ronary artery without angina pectoris 09/13/2023 [...] as of this encounter Progress Notes * Roxanne Ramirez, [facility] - 02/27/2024 3:38 PM EDT Per on 02/06 [facility] note, modified target of < 140/90. Systolic Diastolic Pulse Systolic Diastolic 138 72 Average 133 73 136 72 137 76 High 77 77 133 77 Low 69 69 114 73 130 69 Range 8 8 125 73 Count 9 9 153 77 131 71 Readings remaining at goal. Routing to team to make aware. Roxanne Ramirez RPh, PharmD Clinical Pharmacist - Operator And Truck Driver [facility] 02/27/2024, 3:38 PM [phone] * Mere Stephens LPN - 02/27/2024 9:34 AM EDT [place] [id number] [place] is currently participating in the [employer] Hypertension Management Program and had a reading [...] Description 03/05/2024 11:00 AM EDT Laboratory Laboratory [address] [place] [phone] [address] [place] [address] 03/15/2024 2:00 PM EDT Office Visit Family Medicine [address] [phone] Neha Quiles CRNP [address] [place] [address] [place] [address] 03/19/2024 1:00 PM EDT Telemedicine Neurology [address] [place] [phone] Tish Mcintyre PA-C [address] [facility] [place] [address] 04/17/2024 3:00 PM EDT Nurse Only Ancillary [address] [place] [address] Serg, Nurse [address] [place] [address] 06/11/2024 2:00 PM EDT Office Visit Cardiology, [facility] [address] [place] [address] Dorothy Wallace CRNP [address] [place] [address] 09/14/2024 3:40 PM EST Office Visit Family Medicine [address] [place] [phone] Carlos Alberto Brown MD [address] [place] [address] [place] [address] 02/04/2025 2:20 PM EDT Office Visit Nephrology [address] [place] [address] Nita Mcmahon MD 200 [place] [address] Health Maintenance Due Date Last Done Comments [...] Additional history exists CKD HGB USE SMARTSET 55841 03/24/202403/24, 03/24/2023, 02/11/2022, Additional history exists CKD PHOS USE SMARTSET 64109 03/24/202402/27, 02/11/2022, 09/22/2020, Additional history exists Depression [...] this encounter Medical Devices Implanted Type Area Equine Breeder Device Identifier Shelf Expiration Date Model / Serial / Lot Mesh 10 X 14 [id number] - [id number] [place]ed:[place] 1 [place] [facility] [place]: Abdomen [employer] 01/27/2015 [id number] / / [id number] documented as of this encounter Visit Diagnoses [...] verbally by patient or by statute hierarchy) [email or web address] Care Teams Pega Developer Relationship Specialty Start Date End Date Carlos Alberto Brown MD [address] [place] [address] [place] [address] PCP - General Family Medicine 08/04/11 documented as of this encounter
--- OUTSIDE RECORDS SUMMARY | 2024-04-13 09:18 | External Medical Summary | Summary of Care ---
Author Name Unknown Organization [facility] Address [address] [facility] [place] [address] Phone [phone] Care Team Providers Care Salvage Engineer Name Role Phone Carlos Alberto Brown MD Primary Care Provide r Reason for Visit * Reason Comments Outpatient Testing Encounter Details Date Type Department Care Team (Late st Contact Info) Description 03/05/2024 11:00 AM EDT Laboratory Laboratory [address] [place] [phone] [place] [address] HTN, goal below 140/90; History of electrolyte imbalance; Labile blood pressure; At risk for falls; Diabetes mellitus (HCC) Allergies Active Allergy Reactions Criticality Noted Date [...] as of this encounter (statuses as of 03/05/2024) Medications Medication Sig Dispensed Refills Start Date [...] ReleaseIndications: Takotsubo cardiomyopathy,New nary artery disease involving allakaket coronary artery of [place]akaket heart without angina pectoris,HTN, goal below 140/90 [...] SPRAYS INTO EACH NOSTRIL EVERY DAY Active Recipharmuch Delica Lancets 33G Use as directed. Use to test blood glucose once daily Active Recipharmuch Ultra In Vitro Strip (Glucose Blood) Test [...] XL)Indications:Tako tsubo cardiomyopathy,New nary artery disease involving [place] coronary artery of [place]akaket heart without angina pectoris,HTN, goal below 140/90 [...] as of this encounter (statuses as of 03/05/2024) Active Problems Problem Noted Date Diagnosed Date Atherosclerosis of [place]akaket co ronary artery without angina pectoris 09/13/2023 [...] as of this encounter (statuses as of 03/05/2024) Resolved Problems Problem Noted Date Diagnosed Date [...] Powell and Dr. Solomon, 1994 Follow-up examination, 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 Overview: left mastectomy documented as of this encounter (statuses as of 03/05/2024) Immunizations Name Administration Dates Next Due COVID-19 [...] Care Team (Late st Contact Info) Description 03/15/2024 2:00 PM EDT Office Visit Family [address] [place] [phone] Neha Quiles CRNP [address] [place] [address] [place] [address] 03/19/2024 1:00 PM EDT Telemedicine Neurology [address] [place] [phone] Tish Mcintyre PA-C [address] [facility] [place] [address] 04/17/2024 3:00 PM EDT Nurse Only Ancillary [address] [place] [address] [place], Nurse [address] [place] [address] 06/11/2024 2:00 PM EDT Office Visit Cardiology, [facility] 132 [facility] [address] Dorothy Wallace CRNP [address] [place] [address] 09/14/2024 3:40 PM EST Office Visit Family [address] [place] [phone] Carlos Alberto Brown MD [address] [place] [address] [place] [address] 02/04/2025 2:20 PM EDT Office Visit Nephrology [address] [place] [address] Nita Mcmahon MD 200 [facility] [place] [address] Pending Results Name Type Priority Associated Diagnoses Date /Time BASIC METABOLIC PANEL Lab Routine HTN, goal below 140/90 History of electrolyte imbalance Labile blood pressure At risk for falls 03/05/2024 11:10 AM EDT HEMOGLOBIN A1C Lab Routine Diabetes mellitus (HCC) 03/05/2024 11:10 AM EDT Health Maintenance Due Date Last Done Comments [...] Additional history exists CKD HGB USE SMARTSET 32436 03/24/202403/24, 03/24/2023, 02/11/2022, Additional history exists CKD PHOS USE SMARTSET 21456 03/24/202402/27, 02/11/2022, 09/22/2020, Additional history exists Depression [...] this encounter Medical Devices Implanted Type Area Patient Financial Representative Device Identifier Shelf Expiration Date Model / Serial / Lot Mesh 10 X 14 [id number] - [id number] Implanted:Qty: 1 on 04/07/2010 [place] [facility] [place] N/A: Abdomen [employer] 01/27/2015 [id number] / / [id number] documented as of this encounter Visit Diagnoses Diagnosis HTN, goal below 140/90 Unspecified essential hypertension History of electrolyte imbalance Personal history of other endocrine, metabolic, and immunity disorders Labile blood pressure Elevated blood pressure reading without diagnosis of hypertension At risk for falls Personal history of fall Diabetes mellitus (HCC) Type II or unspecified type diabetes mellitus without mention of complication, not stated as uncontrolled documented in this encounter Advance Directives * [...] patient have Health Care Power of Attor stcaie? No Healthcare Agents on File Name Relationship Healthcare Agent Relationshi p Communication Florencia Carlos Adult Child Health Care Repr esentative (appointed verbally by patient or by statute hierarchy) [email or web address] Care Teams Salvage Engineer Relationship Specialty Start Date End Date Carlos Alberto Brown MD [address] [place] [address] [place] [address] PCP - General Family Medicine 08/04/11 documented as of this encounter
--- OUTSIDE RECORDS SUMMARY | 2024-04-13 09:18 | External Medical Summary | Summary of Care ---
Author Name Unknown Organization [facility] Address [address] [facility] [place] [address] Phone [phone] Care Team Providers Care Automobile Leasing Supervisor Name Role Phone Carlos Alberto Brown MD Primary Care Provide r Encounter Details Date Type Department Care Team (Late st Contact Info) Description 03/20/2024 Population Health External Data Unspecified Department Allergies [...] ReleaseIndications: Takotsubo cardiomyopathy,New nary artery disease involving diomede coronary artery of diomede heart without angina pectoris,HTN, goal below 140/90 Take 1 Tablet by mouth in the morning. 04/29/2023 Active Turmeric 500 MG Oral Capsule Take 1 Capsule by mouth in the morning. Active CoQ10 200 MG Oral Capsule Take 1 Capsule by mouth daily. Active Fluticasone Propionate 50 MCG/ACT Nasal Suspension (Flonase) SPRAY 2 SPRAYS INTO EACH NOSTRIL EVERY DAY Active InstallShield [employer] Delica Lancets 33G Use as directed. Use to test blood glucose once daily Active NeighborGoodsuch Ultra In Vitro Strip (Glucose Blood) Test [...] XL)Indications:Tako tsubo cardiomyopathy,New nary artery disease involving [place]om[place] coronary artery of diomede heart without angina pectoris,HTN, goal below 140/90 [...] (ST elevation myocardial infarction) 03/19 Atherosclerosis of [place] co ronary artery without angina pectoris 09/13/2023 [...] Powell and Dr. Solomon, 1994 Follow-up examination, [facility] other surgery 04/23/2003 05/09/2012 DCIS (ductal [...] 04/17/2024 3:00 PM EDT Nurse Only Ancillary [address] [place] [address] Serg, Nurse Annual [address] [place] [address] 06/11/2024 2:00 PM EDT Office Visit Cardiology, [facility] [address] [place] [address] Dorothy Wallace CRNP [address] [place] [address] 09/14/2024 3:40 PM EST Office Visit Family Medicine [address] [place] [phone] Carlos Alberto Brown MD [address] [place] [address] [place] [address] 02/04/2025 2:20 PM EDT Office Visit Nephrology [address] [place] [address] [facility]ita [facility]hon [facility] [address] Health Maintenance Due Date Last Done Comments Cologuard 1996 Sigmoidoscopy 1996 DTaP,Tdap,and Td Vaccines (2 - Td or Tdap) 06/17/2019 06/17/2009 Diabetic Eye Exam 05/25/2022 05/25/2021, , 03/17/2020, Additional history exists COVID-19 Vaccine ( season) 2023 06/27/2022, 01/05/2022, 06/23/2021, Additional history exists Fecal Occult Blood Test 05/10/2023 05/10/2022, 05/10 CKD HGB USE SMARTSET 55270 03/24/202403/24, 03/24/2023, 02/11/2022, Additional history exists CKD PHOS USE SMARTSET 86238 03/24/202402/27, 02/11/2022, 09/22/2020, Additional history exists Depression [...] this encounter Medical Devices Implanted Type Area Engine Designer Device Identifier Shelf Expiration Date Model / Serial / Lot Mesh 10 X 14 [id number] - [id number] Implanted:Qty: 1 on 04/07/2010 [place] [facility] [place]A: Abdomen [employer] 01/27/2015 [id number] / / [id number] documented as of this encounter Advance Directives [...] Relationship Healthcare Agent Relationshi p Communication Florencia [facility] Adult Child Health Care Repr esentative (appointed verbally by patient or by statute hierarchy) [email or web address] Care Teams Automobile Leasing Supervisor Relationship Specialty Start Date End Date Carlos Alberto Brown MD [address] [place] [address] [place] [address] PCP - General Family Medicine 08/04/11 documented as of this encounter
--- OUTSIDE RECORDS SUMMARY | 2024-04-13 09:18 | External Medical Summary ---
Author Name Unknown Address Unknown Organization [id number]:[facility] - [address] [place] [address] Laboratory Report Ordering Provider Test Date Status MARIELENA BARDFORD 03/05/2024 11:10:40 Final Observation Date Value Abnormality Reference (Units ) Status HbA1C 03/05/2024 11:10:40 6.4 Above high normal 4. 0-5.6 (%) Final The use of HbA1c to monitor glycemic status is based on normal hemoglobin and HbA composition. This test should not be used in patients with abnormal hemoglobin that affects the half life of the red blood cell or the in vivo glycation rates. Glucose, estimated average 03/05/2024 11:10:40 137 Above high normal <126 (mg/dL) Renato nobles Performing Location [facility] [address] [facility] [address]
--- OUTSIDE RECORDS SUMMARY | 2024-04-13 09:18 | External Medical Summary | Summary of Care ---
Author Name Unknown Organization [facility] Address [address] [facility] [place] [address] Phone [phone] Care Team Providers Care Box Stacker Name Role Phone Carlos Alberto Brown MD Primary Care Provide r Reason for Visit * Reason Comments Re-Check Pt denies any concer ns. Encounter Details Date Type Department Care Team (Late st Contact Info) Description 03/15/2024 2:00 PM EDT Office Visit Family Medicine [address] [phone] [address]ha Quiles [address] [place] [address] HTN, goal below 140/90*; Type 2 diabetes mellitus with hemoglobin A1c goal of less than 7.0% (HCC); Anxiety state; Hyperlipidemia with target LDL less than 70; Moderate episode of recurrent major depressive disorder (HCC); Vaginal dryness; Recurrent UTI; Urge incontinence of urine Allergies Active Allergy Reactions Criticality Noted Date [...] as of this encounter (statuses as of 03/15/2024) Medications Medication Sig Dispensed Refills Start Date [...] ReleaseIndications :Takotsubo cardiomyopathy,Cor onary artery disease involving [place] coronary artery of [place] heart without angina pectoris,HTN, goal below 140/90 Take 1 Tablet by mouth in the morning. 04/29/2023 Active Turmeric 500 MG Oral Capsule Take 1 Capsule by mouth in the morning. Active CoQ10 200 MG Oral Capsule Take 1 Capsule by mouth daily. Active Fluticasone Propionate 50 MCG/ACT Nasal Suspension (Flonase) SPRAY 2 SPRAYS INTO EACH NOSTRIL EVERY DAY Active OneTouch Delica Lancets 33G Use as directed. Use [...] XL)Indications:Enrike otsubo cardiomyopathy,Cor onary artery disease involving [place] coronary artery of [place] heart without angina pectoris,HTN, goal below 140/90 [...] 01/30/2024 Active clonazePAM 1 MG Oral Tablet (KlonoPIN)Indicati ons:Anxiety state,Insomnia Take 1 Tablet by mouth at bedtime as needed for Anxiety or Insomnia. 30 Tablet 02/15/2024 Active Premarin 0.625 MG/GM Vaginal Cream (Estrogens Conjugated)Indicat ions:Vaginal dryness,Recurrent UTI,Urge incontinence of urine Administer 1 g into the vagina once a week. As directed. 42.5 g 2 03/15/2024 Active Melatonin 5 MG Oral Capsule Take 1 Capsule by mouth at bedtime. 4 Discontinue d(Medicatio n List Clean Up) documented as of this encounter (statuses as of 03/15/2024) Active Problems Problem Noted Date Diagnosed Date Atherosclerosis of [place] co ronary artery without angina pectoris 09/13/2023 [...] as of this encounter (statuses as of 03/15/2024) Resolved Problems Problem Noted Date Diagnosed Date [...] as of this encounter (statuses as of 03/15/2024) Immunizations Name Administration Dates Next Due COVID-19 [...] on file documented as of this encounter Last Filed Vital Signs Vital Sign Reading Time Taken Comments Blood Pressure 94/60 03/15/2024 2:08 PM EDT Pulse 70 03/15/2024 2:08 PM EDT Temperature 36.4 C (97.5 F) 03/15/2024 2:08 PM ED T Respiratory Rate - - Oxygen Saturation 96% 03/15/2024 2:08 PM EDT Inhaled Oxygen Concentration - - Weight 70 kg (154 lb 6.4 oz) 03/15/2024 2:08 PM EDT Height - - Body Mass Index 26.5 04/14/2023 3:34 PM EDT documented in this encounter Plan of Treatment Upcoming Encounters Date Type Department Care Team (Late st Contact Info) Description 03/19/2024 1:00 PM EDT Telemedicine Neurology [address] [place] [phone] Tish Mcintyre PA-C [address] [facility] [place] [phone] 04/17/2024 3:00 PM EDT Nurse Only Ancillary Lee Ann Shah[address] [place] [address] Serg, Nurse [address] [place] [address] 06/11/2024 2:00 PM EDT Office Visit Cardiology, [facility] [address] [facility] [place] [address] Dorothy Rivera CRNP [address] [place] [address] 09/14/2024 3:40 PM EST Office Visit Family Medicine [address] [place] [phone] Carlos Alberto Brown MD [address] [place] [address] [place] [address] 02/04/2025 2:20 PM EDT Office Visit Nephrology [address] [place] [address] [facility] [address] [facility] [address] Scheduled Orders Name Type Priority Associated Diagnoses Orde r Schedule CBC WITH WBC DIFFERENTIAL AND ANEMIA REFLEX WORKUP Lab Routine HTN, goal below 140/90 Expected: 09/15/2024 (Approximate), Expires: 03/15/2025 BASIC METABOLIC PANEL Lab Routine HTN, goal below 140/90 Expected: 09/15/2024 (Approximate), Expires: 03/15/2025 HEMOGLOBIN A1C Lab Routine Type 2 diabetes mellitus with hemoglobin A1c goal of less than 7.0% (HCC) Expected: 09/15/2024 (Approximate), Expires: 03/15/2025 PHOSPHORUS Lab Routine HTN, goal below 140/90 Expected: 09/15/2024 (Approximate), Expires: 03/15/2025 VITAMIN B12 Lab Routine Type 2 diabetes mellitus with hemoglobin A1c goal of less than 7.0% (HCC) Expected: 03/15/2024 (Approximate), Expires: 03/15/2025 Health Maintenance Due Date Last Done Comments Cologuard 1996 Sigmoidoscopy 1996 DTaP,Tdap,and Td Vaccines (2 - Td or Tdap) 06/17/2019 06/17/2009 Diabetic Eye Exam 05/25/2022 05/25/2021, , 01/08/2019, Additional history exists COVID-19 Vaccine ( season) 2023 06/27/2022, 01/05/2022, 06/23/2021, Additional history exists Fecal Occult Blood Test 05/10/2023 05/10/2022, 05/10 CKD HGB USE SMARTSET [id number] 03/24/202403/24, 03/24/2023, 02/11/2022, Additional history exists CKD PHOS USE SMARTSET 54144 03/24/202402/27, 02/11/2022, 09/22/2020, Additional history exists Depression [...] this encounter Medical Devices Implanted Type Area Texturing Machine Fixer Device Identifier Shelf Expiration Date Model / Serial / Lot Mesh 10 X 14 [id number] - [id number] Implanted:Qty: 1 on 04/07/2010 at [place] [facility] [place]/A: Abdomen [employer] 01/27/2015 [id number] / / [id number] documented as of this encounter Visit Diagnoses Diagnosis HTN, goal below 140/90- Primary Unspecified essential hypertension Type 2 diabetes mellitus with hemoglobin A1c goal of less than 7.0% (HCC) Anxiety state Anxiety state, unspecified Hyperlipidemia with target LDL less than 70 Other and unspecified hyperlipidemia Moderate episode of recurrent major depressive disorder (HCC) Vaginal dryness Other specified symptom associated with female genital organs Recurrent UTI Urinary tract infection, site not specified Urge incontinence of urine Urge incontinence documented in this encounter Advance Directives * [...] verbally by patient or by statute hierarchy) [email or web address] Mobile Care Teams Box Stacker Relationship Specialty Start Date End Date Carlos Alberto Brown MD [address] [place] [address] [place] [address] PCP - General Family Medicine 08/04/11 documented as of this encounter
--- OUTSIDE RECORDS SUMMARY | 2024-04-13 09:19 | External Medical Summary | Summary of Care ---
Author Name Unknown Organization [facility] Address [address] [facility] [place] [address] Phone [phone] Care Team Providers Care Blind Hooker Name Role Phone Carlos Alberto Brown MD Primary Care Provide r Reason for Visit * Reason Comments Chronic Kidney Disease (CKD) Hypertension Encounter Details Date Type Department Care Team (Late st Contact Info) Description 02/01/2024 2:20 PM EDT Office Visit Nephrology [address] [place] [phone] Nita Mcmahon MD [address] [place], [place] [address] [address] HTN, goal below 140/90*; History of electrolyte imbalance; Labile blood pressure; At risk for falls Allergies Active Allergy Reactions Criticality Noted Date [...] as of this encounter (statuses as of 02/19/2024) Medications Medication Sig Dispensed Refills Start Date [...] ReleaseIndications :Takotsubo cardiomyopathy,Cor onary artery disease involving [place] coronary artery of [place] heart without angina pectoris,HTN, goal below 140/90 [...] SPRAYS INTO EACH NOSTRIL EVERY DAY Active [employer] Delica Lancets 33G Use as directed. Use [...] XL)Indications:Enrike otsubo cardiomyopathy,Cor onary artery disease involving [place] coronary artery of [place] heart without angina pectoris,HTN, goal below 140/90 [...] needed for Anxiety or Insomnia. 30 Tablet 01/18/2024 4 Discontinue d(Refill) documented as of this encounter (statuses as of 02/19/2024) Active Problems Problem Noted Date Diagnosed Date Atherosclerosis of [place] co ronary artery without angina pectoris 09/13/2023 [...] as of this encounter (statuses as of 02/19/2024) Resolved Problems Problem Noted Date Diagnosed Date Resolved Date Hypertensive kidney disease with chronic kidney disease 09/13/2023 09/13/2023 Hypertensive kidney disease with stage 3a chronic kidney disease 08/04/2021 09/09/2022 Stage 3a chronic kidney disease 07/07/2020 09/13/2023 Overview: Per CKD protocol - Per CKD protocol Resistant hypertension 11/13/2019 01/16 /2023 Kidney disease, chronic, sta ge III (GFR [...] Powell and Dr. Solomon, 1994 Follow-up examination, [facility] other surgery 04/23/2003 05/09/2012 DCIS (ductal carcinoma in situ) of breast 05/23/2017 Overview: left mastectomy documented as of this encounter (statuses as of 02/19/2024) Immunizations Name Administration Dates Next Due COVID-19 [...] 0 03/29/1978 - 03/29/1998 Smokeless Tobacco: Never Tobacco Cessation:Counseling Given: Not Answered Alcohol Use Standard Drinks/Week Comments Yes 0 [...] Sign Reading Time Taken Comments Blood Pressure 105/59 02/01/2024 2:30 PM EDT Pulse 58 02/01/2024 2:30 PM EDT Temperature 36.4 C (97.5 F) 02/01/2024 2:27 PM ED T Respiratory Rate 16 02/01/2024 2:27 PM EDT Oxygen Saturation 98% 02/01/2024 2:27 PM EDT Inhaled Oxygen Concentration - - Weight 70.3 kg (155 lb) 02/01/2024 2:27 PM EDT Height - - Body Mass Index 26.61 04/14/2023 3:34 PM EDT documented in this encounter Patient Instructions * Patient Instructions* Nita Mcmahon MD - 02/01/2024 3:15 PM EDT -continue remote bp monitoring -goal blood pressure is less than 140/90 b/c of your big swings in BP -liberalize fluid limit to 50 oz daily -check labs after about a month on higher fluid intake -avoid medicines like aleve, advil, ibuprofen, aspirin more than 81 mg daily and other NSAIDS whichare not good for kidney patients. Take only tylenol (acetaminophen) up to 2000 mg daily as needed for pain or as directed by your primary care provider. documented in this encounter Progress Notes * Nita Mcmahon MD - 02/01/2024 2:46 PM EDT NEPHROLOGY CLINIC NOTE Nephrology [address] [place] [address] 02/01/2024, 2:46 PM Patient Name: Ofelia [place] BACKGROUND: 73 year old female presents for f/u of nonproteinuric CKD 3A, hypertension Past medical history includes diabetes since 2012 on metformin and other oral agents, hypertension since age 41 and with history of urgency most recently fall 2019, multiple sclerosis, fibromyalgia, depression, hypothyroid, breast cancer, GERD. Chronic back pain/lumbar stenosis. M had MS; also had nephrectomy age 51 for ? Reason. Home bp cuff: yes, upper arm never validated NSAID use: most days Herbals: Takes CoQ10 and melatonin x years; else no FH of CKd/ESRD: nephrectomy as above; else none stone hx: Never passed one Drinks at least 64 oz water daily if not more. Coffee 2 cups 10 oz each as well. Walked about a mile october 2019; uses walking stick/cane most often. Has rollator but it complicatesposture; uses it when she gets up hs. >>Seen once 2018 back for CKD , hyponatremia; recommended stopping hctz and naproxen and trial CCB 5 mg. Continues to limit fluid intake >> 2 cups coffee; 12 oz water by day and another 12 oz evening. 8-10 oz cranberry juice; also takes cranberry gummies. Also doing D mannose. At February 2023 OV, walking less > b/c of balance/ feels he has to walk w/ her; joining [employer] class next week approved by neuro for balance; thinking about yoga later TODAY 02/01/2024: MS fairly stable but new sx arising not expected at her age she states >> newTMJ for ex but not severe enoug to intervene. Got L brace for foot drop > helps a lot. But Jaw issue challenging. Also OAB hs and now wearing diaper to bed. 03/2023 had Presented w/ full /abrupt paralysis and diaphoresis >> Acute Takotsubo cardiomyopathy April 28, 2023 [facility] admission w/ emergency card cath and with hyponatremia 124; hctz stopped atd/c. [employer] from flu vaccine > so in wake of cardiac events stopped acosta chi/yoga. Had been offered chlorthalidone in spring 2023 b/c of uncontrolled HTN > has SMBP log / readings on valid cuff avg 137/75 Rescued 2 poodles Tries to stay at drinking about 40 oz daily fluids REVIEW OF SYSTEMS: Stable weight, energy level and appetite acceptable does note BLE edema at times > more in summer w/ wearing fewer TEDS No cough, wheeze, or dyspnea Stable chronic digestive issues > chronic digestive issues; to start more miralax and No dysuria, hematuria, nocturia >2X; no new/worrisome voiding sx No focal joint/muscle aches No presyncopal or orthostatic symptoms >> has chronic stable balance issues; as above falls Current Outpatient Medications Medication Sig Dispense Refill Polyethylene Glycol 3350 17 GM Oral Packet Take 1 Packet by mouth in the morning. D-Mannose 500 MG Oral Capsule Take 1,000 mg by mouth in the morning and 1,000 mg before bedtime. Levothyroxine Sodium 75 MCG Oral Tablet (Levoxyl) TAKE 1 TABLET BY MOUTH DAILY AT LEAST 30 MINUTES PRIOR TO FIRST MEAL OF THE DAY OR OTHER MEDICATIONS 90 Tablet 3 Baclofen 10 MG Oral Tablet (Lioresal) TAKE ONE TABLET BY MOUTH 3 TIMES PER DAY 270 Tablet 3 Aspirin 81 MG Oral Tablet Delayed Release Take 1 Tablet by mouth in the morning. Melatonin 5 MG Oral Capsule Take 1 Capsule by mouth at bedtime. Turmeric 500 MG Oral Capsule Take 1 Capsule by mouth in the morning. CoQ10 200 MG Oral Capsule Take 1 Capsule by mouth daily. Fluticasone Propionate 50 MCG/ACT Nasal Suspension (Flonase) SPRAY 2 SPRAYS INTO EACH NOSTRIL EVERYDAY Trulicity 0.75 MG/0.5ML Subcutaneous Solution Pen-injector (Dulaglutide) Inject 0.75 mg under the skin once a week. 6 mL 3 Esomeprazole Magnesium 40 MG Oral Capsule Delayed Release TAKE ONE CAPSULE BY MOUTH EVERY DAY BEFORE BREAKFAST 90 Capsule 3 Metoprolol Succinate ER 25 MG Oral Tablet Extended Release 24 Hour (toPROL XL) Take 0.5 Tablets by mouth in the morning and 0.5 Tablets before bedtime. 90 Tablet 3 amLODIPine Besylate 10 MG Oral Tablet (Norvasc) Take 1 Tablet by mouth in the morning. 90 Tablet 3 metFORMIN HCl 1000 MG Oral Tablet (Glucophage) TAKE ONE TABLET BY MOUTH TWICE A DAY WITH MORNING AND EVENING MEALS 200 Tablet 2 Gabapentin 600 MG Oral Tablet (Neurontin) TAKE ONE TABLET BY MOUTH BEFORE BEDTIME 100 Tablet 1 Escitalopram Oxalate 20 MG Oral Tablet (Lexapro) TAKE ONE TABLET BY MOUTH EVERY DAY 90 Tablet 3 Spironolactone 25 MG Oral Tablet (Aldactone) TAKE 1 TABLET BY MOUTH IN THE MORNING. 90 Tablet 3 Valsartan 160 MG Oral Tablet (Diovan) Take 1 Tablet by mouth in the morning and 1 Tablet before bedtime. 90 Tablet 3 Atorvastatin Calcium 40 MG Oral Tablet (Lipitor) TAKE ONE TABLET BY MOUTH EVERY DAY 90 Tablet 2 BLOOD GLUCOSE METER KIT use as directed 1 Kit 0 hydrOXYzine HCl 25 MG Oral Tablet Take 1 Tablet by mouth every 6 hours as needed for Itching. (Patient not taking: Reported on 12/07/2023) 40 Tablet 2 OneTouch Delica Lancets 33G Use as directed. Use to test blood glucose once daily OneTouch Ultra In Vitro Strip (Glucose Blood) Test as directed. Use to test blood glucose once daily clonazePAM 1 MG Oral Tablet (KlonoPIN) Take 1 Tablet by mouth at bedtime as needed for Anxiety or Insomnia. 30 Tablet 0 No current facility-administered medications for this visit. Review of patient's allergies indicates: Allergen Reactions Ivp Dye hives, severe, pt only reacts to the one used for MRI, pt has had IVP dye since. Darvocet [Propoxyphene N-Acetaminophen] Hives Gadolinium Hives Hydrochlorothiazide Severe electrolyte disturbance Hydrocodone Itching, pt denies any oxycodone allergy Iodinated Contrast Media Hives MRI dye Latex Other reaction(s): itching Percocet [Oxycodone-Acetaminophen] Hives Hives Oxycodone Other reaction(s): hives PHYSICAL EXAMINATION: BP Readings from Last 6 Encounters: 02/01/24 105/59 12/01/23 148/84 09/13/23 132/78 06/20/23 132/70 05/19/23 152/80 05/13/23 154/70 Wt Readings from Last 6 Encounters: 02/01/24 70.3 kg (155 lb) 12/01/23 70.6 kg (155 lb 12 oz) 09/13/23 70.3 kg (155 lb) 06/20/23 68.5 kg (151 lb) 05/13/23 68.5 kg (151 lb) 05/05/23 68.6 kg (151 lb 4 oz) Pulse Readings from Last 6 Encounters: 02/01/24 58 12/01/23 64 09/13/23 55 06/20/23 60 05/19/23 62 05/13/23 56 01/24/24 01/25/24 08:52 01/26/24 09:00 01/27/24 10:17 01/28/24 10:45 01/29/24 08:51 01/30/24 09:02 01/31/24 10:12 02/01/24 Systolic BP 132 mm/Hg [1] 135 mm/Hg [1] 107 mm/Hg [1] 149 mm/Hg (H) [1] 149 mm/Hg (H) [1] 144 mm/Hg(H) [1] 134 mm/Hg [1] 143 mm/Hg (H) [1] 139 mm/Hg [1] Diastolic BP 73 mm/Hg [1] 78 mm/Hg [1] 64 mm/Hg [1] 77 mm/Hg [1] 82 mm/Hg [1] 76 mm/Hg [1] 76 mm/Hg[1] 81 mm/Hg [1] 78 mm/Hg [1] Pulse 55 bpm [1] 61 bpm [1] 59 bpm [1] 60 bpm [1] 56 bpm [1] 52 bpm [1] 55 bpm [1] 54 bpm [1] 56 bpm [1] NAD, oriented x 3, ambulatory w/ cane Normocephalic, atraumatic, eomi nonicteric sclerae MMM Supple neck RRR w/o m/g/r; trace BLE edema CTAB w/ reasonable air mvt NT abd, +BS, soft No cyanosis or clubbing; L leg brace No rash No tremor, focal or global weakness; fluent speech, excellent historian LABS: Recent Labs Units 11/16/23 1118 09/13/23 1624 07/22/23 1438 05/31/23 1216 SODIUM - [facility] mmol/L 137 137 140 135 POTASSIUM - [facility] mmol/L 4.7 4.7 4.7 4.2 CHLORIDE - [facility] mmol/L 103 100 102 98 CO2 - [facility] mmol/L 25 26 30 25 BUN - [facility] mg/dL 28* 18 16 16 CREATININE - [facility] mg/dL 0.9 0.9 0.9 0.8 ESTIMATED GLOMERULAR FILTRATION RATE - [facility] mL/min 66 68 69 78 Recent Labs Units 03/24/23 1158 HGB g/dL 12.1 Recent Labs Units 11/16/23 1118 09/13/23 1624 07/22/23 1438 05/31/23 1216 03/24/23 1158 CALCIUM - [facility] mg/dL 9.8 10.6* 10.3* 10.2 10.2 PHOSPHORUS - [facility] mg/dL -- -- -- -- 3.8 25-HYDROXY VITAMIN D - [facility] ng/mL -- 58 -- -- 93 PTH - [facility] pg/mL -- 31 -- -- -- Recent Labs Units 09/13/23 1624 03/24/23 1158 12/09/22 1259 08/13/22 1038 HEMOGLOBIN A1C - [facility] % 6.1* 6.1* 6.4* 7.3* Recent Labs Units 09/15/23 1039 12/09/22 1510 ALBUMIN/CREATININE RATIO, HIDE mg/g Creat Uninterpretable Albumin/Creatinine ratio due to very low albumin and creatinine values. -- ALBUMIN / CREATININE RATIO, URINE - [facility] mg/g Creat -- <17 Recent Labs Units 12/19/23 1240 09/15/23 1039 03/28/23 1529 12/07/22 1235 CLARITY, URINE - [facility] Clear Slightly Cloudy* Clear Cloudy* GLUCOSE, URINE - [facility] mg/dL Negative Negative Negative Negative BILIRUBIN, URINE - [facility] Negative Negative Negative Negative KETONE, URINE - [facility] mg/dL Negative Negative Negative Negative SPECIFIC GRAVITY, URINE - [facility] 1.012 1.009 1.007 1.009 BLOOD, URINE - [facility] Negative Negative Negative Negative PH, URINE - [facility] Units 8.5* >=9.0* 8.0* 8.5* PROTEIN, URINE - [facility] mg/dL Trace* Negative Negative Negative UROBILINOGEN, URINE - [facility] mg/dL Normal 0.2 Normal Normal NITRITE, URINE - [facility] Negative Positive* Positive* Positive* ESTERASE, URINE - [facility] Moderate* Small* Large* Large* BACTERIA, URINE - [facility] /HPF 0-25 51-100* 101-150* >200* WBC, URINE - [facility] /HPF 0-2 3-5* 30-49* 0-2 RBC, URINE - [facility] /HPF 0-2 0-2 0-2 0-2 ASSESSMENT AND PLAN: HTN, goal below 140/90 (Primary) - BASIC METABOLIC PANEL; Future; Expected date: 02/15/2024 History of electrolyte imbalance - BASIC METABOLIC PANEL; Future; Expected date: 02/15/2024 Labile blood pressure - BASIC METABOLIC PANEL; Future; Expected date: 02/15/2024 At risk for falls - BASIC METABOLIC PANEL; Future; Expected date: 02/15/2024 Follow Up: Return in about 1 year (around 01/31/2025) for clinic visit w/ . | For: clinic visit w/ Labile BP w/ low reading today but at goal at home on smbp. Higher target d/t fall risk -cont spironolactone, amlodipine, toprol -continue SMBP and ensure MTM continues to follow Mitigate fall risk w/ higher SBP target -increase fluid intake and eval bp /effects Patient Instructions -continue remote bp monitoring -goal blood pressure is less than 140/90 b/c of your big swings in BP -liberalize fluid limit to 50 oz daily -check labs after about a month on higher fluid intake -avoid medicines like aleve, advil, ibuprofen, aspirin more than 81 mg daily and other NSAIDS whichare not good for kidney patients. Take only tylenol (acetaminophen) up to 2000 mg daily as needed for pain or as directed by your primary care provider. Nita Mcmahon MD Nephrology [address] [place] [address] CC: Ref: SELF[[id number]] NO STREET ADDRESS AVAILABLE None (office) None (fax) PCP: CARLOS ALBERTO BROWN [address] [place] [address] [place] [phone] This chart was completed in part utilizing [employer]ga Speech Voice Recognition Software. Randomword insertions, pronoun errors, and incomplete sentences are an occasional consequence of this system due to software limitations, and ambient noise. Any questions or concerns about the content, text, or information contained within the body of this dictation should be directly addressed to the provider for clarification. documented in this encounter Nursing Notes * Meghana Prieto RN - 02/01/2024 2:40 PM EDT Average of 16 home readings is 137/75. * Meghana Prieto RN - 02/01/2024 2:26 PM EDT Follow up visit today. Monitors blood pressures at home. Copy of readings with her today. No recentillness or hospital stays. documented in this encounter Plan of Treatment Upcoming Encounters Date Type Department Care Team (Late st Contact Info) Description 03/15/2024 2:00 PM EDT Office Visit Family Medicine [address] [place] [phone] Neha Quiles [address] [place] [address] 03/19/2024 1:00 PM EDT Telemedicine Neurology [address] [place] [phone] Tish Mc[facility]tyre [facility]C [facility] [phone] 04/17/2024 3:00 PM EDT Nurse Only Ancillary [address] [place] [address] Serg, Nurse [address] [place] [address] 06/11/2024 2:00 PM EDT Office Visit Cardiology, [address] [place] [address] Dorothy Wallace, HEIDE [address] [place] [address] 09/14/2024 3:40 PM EST Office Visit Family Medicine [address] [place] [phone] Carlos Alberto Brown MD [address] [place] [address] [place] [address] 02/04/2025 2:20 PM EDT Office Visit Nephrology [address] [place] [address] Nita Mcmahon MD [address] [facility] [address] Scheduled Orders Name Type Priority Associated Diagnoses Orde r Schedule BASIC METABOLIC PANEL Lab Routine HTN, goal below 140/90 History of electrolyte imbalance Labile blood pressure At risk for falls Expected: 02/15/2024 (Approximate), Expires: 01/31/2025 Health Maintenance Due Date Last Done Comments [...] Additional history exists CKD HGB USE SMARTSET 37060 03/24/202403/24, 03/24/2023, 02/11/2022, Additional history exists CKD PHOS USE SMARTSET 53892 03/24/202402/27, 02/11/2022, 09/22/2020, Additional history exists Depression [...] this encounter Medical Devices Implanted Type Area Ip Technology Transactions Attorney Device Identifier Shelf Expiration Date Model / Serial / Lot Mesh 10 X 14 [id number] - [id number] Implanted:Qty: 1 on 04/07/2010 at OR [facility] N/A: Abdomen [employer] 01/27/2015 [id number] / / [id number] documented as of this encounter Visit Diagnoses Diagnosis HTN, goal below 140/90- Primary Unspecified essential hypertension History of electrolyte imbalance Personal history of other endocrine, metabolic, and immunity disorders Labile blood pressure Elevated blood pressure reading without diagnosis of hypertension At risk for falls Personal history of fall documented in this encounter Advance Directives * [...] verbally by patient or by statute hierarchy) [email or web address] Care Teams Blind Hooker Relationship Specialty Start Date End Date Carlos Alberto Brown MD [address] [place] [address] [place] [address] PCP - General Family Medicine 08/04/11 documented as of this encounter"
--- OUTSIDE RECORDS SUMMARY | 2024-04-13 09:19 | External Medical Summary | Summary of Care ---
Author Name Unknown Organization [facility] Address [address] [facility] [address] Phone [phone] Care Team Providers Care Roll Reclaimer Name Role Phone Carlos Alberto Brown MD Primary Care Provide r Reason for Visit * Reason Onset Date Comments Medication Refill 02/14/2024 Encounter Details Date Type Department Care Team (Late st Contact Info) Description 02/14/2024 Refill [facility] Medicine [address] [phone] Carlos Alberto Brown MD [address] [place] [address] [place] [address] Anxiety state; Insomnia Allergies Active Allergy Reactions [...] as of this encounter (statuses as of 02/15/2024) Medications Medication Sig Dispensed Refills Start Date [...] ReleaseIndications :Takotsubo cardiomyopathy,Cor onary artery disease involving [place] coronary artery of [place] heart without angina pectoris,HTN, goal below 140/90 [...] SPRAYS INTO EACH NOSTRIL EVERY DAY Active [employer] Delica Lancets 33G Use as directed. Use [...] XL)Indications:Enrike otsubo cardiomyopathy,Cor onary artery disease involving [place] coronary artery of [place] heart without angina pectoris,HTN, goal below 140/90 [...] Anxiety or Insomnia. 30 Tablet 02/15/2024 Active clonazePAM 1 MG Oral Tablet (KlonoPIN)Indicati ons:Anxiety state,Insomnia Take 1 Tablet by mouth at bedtime as needed for Anxiety or Insomnia. 30 Tablet 01/18/2024 4 Discontinue d(Refill) documented as of this encounter (statuses as of 02/15/2024) Active Problems Problem Noted Date Diagnosed Date Atherosclerosis of [place] co ronary artery without angina pectoris 09/13/2023 [...] as of this encounter (statuses as of 02/15/2024) Resolved Problems Problem Noted Date Diagnosed Date [...] as of this encounter (statuses as of 02/15/2024) Immunizations Name Administration Dates Next Due COVID-19 [...] encounter Miscellaneous Notes * Telephone Encounter - Lj White DO - 02/15/2024 1:23 PM EDTSigned Prescriptions: Disp Refills clonazePAM 1 MG Oral Tablet (KlonoPIN) 30 Tab*0 Sig: Take 1 Tablet by mouth at bedtime as needed for Anxiety or Insomnia. Authorizing Provider: LJ WHITE * Telephone Encounter - Becca Gray [facility] - 02/15/2024 6:33 AM EDT Pending Prescriptions: Disp Refills clonazePAM 1 MG Oral Tablet (KlonoPIN) 30 Tab*0 Sig: Take 1 Tablet by mouth at bedtime as needed for Anxiety or Insomnia. * Telephone Encounter - Becca Gray [facility] - 02/15/2024 6:33 AM EDT I have reviewed the patients controlled substance dispensing history in the Prescription Drug Monitoring Program in compliance with the [facility] regulations before prescribing a controlled substance. PDMP checked on 02/15/2024. Pending Prescriptions: Disp Refills clonazePAM 1 MG Oral Tablet (KlonoPIN) 30 Tab*0 Sig: Take 1 Tablet by mouth at bedtime as needed for Anxiety or Insomnia. Last Visit: 09/13/2023 (in office), 07/10/2021 (telemedicine) Next Visit: 03/15/2024 Date medication was last filled: 01/18/24 Date medication is due for refill: 02/16/24 Pharmacy: [id number] Is this request for a controlled substance? Yes and Urine Drug Screen Not completed Toxicology results: No results found. However, due to the size of the patient record, not all encounters were searched.Please check Results Review for a complete set of results. Please approve if appropriate. Thank you, Becca Gray, PharmD Clinical Pharmacist [facility] ([facility] [phone] 02/15/2024, 6:33 AM documented in this encounter Plan of Treatment Upcoming Encounters Date Type Department Care Team (Late st Contact Info) Description 02/17/2024 1:00 PM EDT Cardiac Studies Cardiac Studies, [facility] [address] [facility] [place] [address] 03/15/2024 2:00 PM EDT Office Visit Family Medicine [address] [place] [phone] Neha Quiles [address] [place] [address] 03/19/2024 1:00 PM EDT Telemedicine Neurology [address] [place] [phone] Tish Mcintyre PA-C [address] [facility] [place] [phone] 04/17/2024 3:00 PM EDT Nurse Only Ancillary [address] [place] [address] Serg, Nurse [address] [place] [address] 06/11/2024 2:00 PM EDT Office Visit Cardiology, [facility] [address] [place] [address] Dorothy Wallace CRNP [address] [place] [address] 09/14/2024 3:40 PM EST Office Visit Family Medicine [address] [place] [phone] Carlos Alberto Brown MD [address] [place] [address] [place] [address] 02/04/2025 2:20 PM EDT Office Visit Nephrology [address] [place] [address] Nita Mcmahon MD [address] [facility] [place] [address] Health Maintenance Due Date Last Done Comments Cologuard 1996 Sigmoidoscopy 1996 DTaP,Tdap,and Td Vaccines (2 - Td or Tdap) 06/17/2019 06/17/2009 Diabetic Eye Exam 05/25/2022 05/25/2021, , 01/08/2019, Additional history exists Diabetic Foot Exam 03/18/2023 03/18/2022, 0 03/22/2019, 02/24/2018, Additional history exists COVID-19 Vaccine ( season) 2023 06/27/2022, 01/05/2022, 06/23/2021, Additional history exists Fecal Occult Blood Test 05/10/2023 05/10/2022, 05/10 HbA1c 03/13/2024 09/13/2023, 0702/2023, 12/09/2022, Additional history exists CKD HGB USE SMARTSET 77357 03/24/202403/24, 03/24/2023, 02/11/2022, Additional history exists CKD PHOS USE SMARTSET 82237 03/24/202402/27, 02/11/2022, 09/22/2020, Additional history exists Depression [...] this encounter Medical Devices Implanted Type Area Door Tender Device Identifier Shelf Expiration Date Model / Serial / Lot Mesh 10 X 14 [id number] - [id number] Implanted:Qty: 1 on 04/07/2010 at [place] [facility] [place] N/A: Abdomen [employer] 01/27/2015 [id number] / / [id number] documented as of this encounter Visit Diagnoses Diagnosis Anxiety state Anxiety state, unspecified Insomnia Insomnia, unspecified documented in this encounter Advance Directives * Full Code (Latest Code Status on File) Date Activated Date Inactivated Comments 04/07/2010 7:12 PM 04/13/2010 1:48 PM This order reflects the patients wishes and were consensually agreed [...] verbally by patient or by statute hierarchy) [email or web address] Care Teams Roll Reclaimer Relationship Specialty Start Date End Date Carlos Alberto Brown MD [address] [place] [address] [place] [address] PCP - General Family Medicine 08/04/11 documented as of this encounter
--- OUTSIDE RECORDS SUMMARY | 2024-04-13 09:19 | External Medical Summary | Summary of Care ---
Author Name Unknown Organization [facility] Address [address] [facility] [place] [address] Phone [phone] Care Team Providers Care Covered Buckle Assembler Name Role Phone Carlos Alberto Brown MD Primary Care Provide r Reason for Visit * Reason Onset Date Comments Health Maintenance 02/20/2024 Encounter Details Date Type Department Care Team (Late st Contact Info) Description 02/20/[address] [phone] Carlos Alberto Brown MD [address] [place] [address] [place] [address] Health Maintenance Allergies Active Allergy Reactions Criticality Noted Date [...] as of this encounter (statuses as of 02/20/2024) Medications Medication Sig Dispensed Refills Start Date [...] ReleaseIndications: Takotsubo cardiomyopathy,New nary artery disease involving [place] coronary artery of [place] heart without angina pectoris,HTN, goal below 140/90 [...] SPRAYS INTO EACH NOSTRIL EVERY DAY Active On The Net Yetuch Delica Lancets 33G Use as directed. Use [...] XL)Indications:Tako tsubo cardiomyopathy,New nary artery disease involving [place] coronary artery of [place] heart without angina pectoris,HTN, goal below 140/90 [...] as of this encounter (statuses as of 02/20/2024) Active Problems Problem Noted Date Diagnosed Date Atherosclerosis of [place] co ronary artery without angina pectoris 09/13/2023 [...] as of this encounter (statuses as of 02/20/2024) Resolved Problems Problem Noted Date Diagnosed Date [...] Powell and Dr. 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: left mastectomy documented as of this encounter (statuses as of 02/20/2024) Immunizations Name Administration Dates Next Due COVID-19 [...] encounter Miscellaneous Notes * Telephone Encounter - Justa St LPN - 02/20/2024 11:20 AM EDT Care Gaps Comprehensive Care Outreach Last Office/Telemedicine Visit: 09/13/2023 (in office), 07/10/2021 (telemedicine) Next Office Visit: 03/15/2024 Hemoglobin AIC Results: Lab Results Component Value Date/Time HEMOGLOBIN A1C - [facility] 6.1 (H) 09/13/2023 04:24 PM HEMOGLOBIN A1C - [facility] 6.1 (H) 03/24/2023 11:58 AM HEMOGLOBIN A1C - [facility] 6.4 (H) 12/09/2022 12:59 PM HEMOGLOBIN A1C - [facility] 6.8 (H) 09/22/2020 01:46 PM HEMOGLOBIN A1C - [facility] 6.3 (H) 03/07/2020 09:39 AM HEMOGLOBIN A1C - [facility] 6.9 (H) 11/12/2019 02:54 PM BP Readings from Last 1 Encounters: 02/01/24 105/59 Reviewed Health Maintenance below: Health Maintenance Topic Date Due DTaP,Tdap,and Td Vaccines (2 - Td or Tdap) 06/17/2019 Diabetic Eye Exam 05/25/2022 Diabetic Foot Exam 03/18/2023 COVID-19 Vaccine ( season) 2023 HbA1c 03/13/2024 CKD HGB USE SMARTSET 55594 03/24/2024 CKD PHOS USE SMARTSET 86519 03/24/2024 Depression Monitoring 04/14/2024 GFR 05/18/2024 Eye [facility] last Labs February ordered and scheduled Care Gap Outreach Action Taken: Spoke to patient documented in this encounter Plan of Treatment Upcoming Encounters Date Type Department Care Team (Late st Contact Info) Description 03/05/2024 11:00 AM EDT Laboratory Laboratory [address] [place] [phone] [place] [address] 03/15/2024 2:00 PM EDT Office Visit Family Medicine [address] [phone] Neha Quiles CRNP [address] [place] [address] [place] [address] 03/19/2024 1:00 PM EDT Telemedicine Neurology [place] [address] [phone] Tish Mcintyre PA-C [address] [facility] [place] [address] 04/17/2024 3:00 PM EDT Nurse Only Ancillary [address] [place] [address] Kyealley, Nurse Annual [address] [place] [address] 06/11/2024 2:00 PM EDT Office Visit Cardiology, [facility] [address] [place] [address] Dorothy Wallace CRNP [address] [place] [address] 09/14/2024 3:40 PM EST Office Visit Family [address] [place] [phone] Carlos Alberto Brown MD [address] [place] [address] [place] [address] 02/04/2025 2:20 PM EDT Office Visit Nephrology [address] [place] [address] Nita Mcmahon MD 200 [place] [address] Scheduled Orders Name Type Priority Associated Diagnoses Orde r Schedule HEMOGLOBIN A1C Lab Routine Diabetes mellitus (HCC) Expected: 03/05/2024, Expires: 02/19/2025 Health Maintenance Due Date Last Done Comments [...] Additional history exists CKD HGB USE SMARTSET 75022 03/24/202403/24, 03/24/2023, 02/11/2022, Additional history exists CKD PHOS USE SMARTSET 52363 03/24/202402/27, 02/11/2022, 09/22/2020, Additional history exists Depression [...] this encounter Medical Devices Implanted Type Area Powder Mixer Device Identifier Shelf Expiration Date Model / Serial / Lot Mesh 10 X 14 [id number] - [id number] Implanted:Qty: 1 on 04/07/2010 at [place] [facility] [place] N/A: Abdomen [employer] 01/27/2015 [id number] / / [id number] documented as of this encounter Visit Diagnoses Diagnosis Diabetes mellitus (HCC)- Primary Type II or unspecified type diabetes mellitus [...] Relationship Healthcare Agent Relationshi p Communication Florencia [facility] Adult Child Health Care Repr esentative (appointed verbally by patient or by statute hierarchy) [email or web address] Care Teams Covered Buckle Assembler Relationship Specialty Start Date End Date Carlos Alberto Brown MD [address] [place] [address] [place] [address] PCP - General Family Medicine 08/04/11 documented as of this encounter
--- OUTSIDE RECORDS SUMMARY | 2024-04-13 09:19 | External Medical Summary | Summary of Care ---
Author Name Unknown Organization [facility] Address [address] [facility] [place] [address] Phone [phone] Care Team Providers Care General Manager Oracle Data Cloud Name Role Phone Carlos Alberto Brown MD Primary Care Provide r Reason for Visit * Reason Onset Date Comments Advice 02/20/2024 Encounter Details Date Type Department Care Team (Late st Contact Info) Description 02/20/2024 Telephone Nephrology, Tamika Gonzalez 200 [facility] [place] [address] Nita Mcmahon MD 200 [place] [address] Advice Allergies Active Allergy Reactions Criticality Noted Date [...] ReleaseIndications: Takotsubo cardiomyopathy,New nary artery disease involving [place] coronary artery of [place] heart without angina pectoris,HTN, goal below 140/90 [...] SPRAYS INTO EACH NOSTRIL EVERY DAY Active Ummitech Delica Lancets 33G Use as directed. Use to test blood glucose once daily Active Snagstauch Ultra In Vitro Strip (Glucose Blood) Test [...] XL)Indications:Tako tsubo cardiomyopathy,New nary artery disease involving [place] coronary artery of [place] heart without angina pectoris,HTN, goal below 140/90 [...] Problem Noted Date Diagnosed Date Atherosclerosis of [place] co ronary artery without angina pectoris 09/13/2023 [...] Powell and Dr. Solomon, 1994 Follow-up examination, [facility] other surgery 04/23/2003 05/09/2012 DCIS (ductal [...] encounter Miscellaneous Notes * Telephone Encounter - Meghana Prieto RN - 02/20/2024 12:45 PM EDT Note documented by [facility] pharmacist. * Telephone Encounter - Meghana Prieto RN - 02/20/2024 12:43 PM EDT ----- Message from Nita Mcmahon MD sent at 02/19/2024 7:27 PM EDT ----- Pls check records >> ensure Pharmacist from [employer] following documented in this encounter Plan of Treatment Upcoming Encounters Date Type Department Care Team (Late st Contact Info) Description 03/05/2024 11:00 AM EDT Laboratory Laboratory [address] [place] [phone] [facility] [address] [place] [address] 03/15/2024 2:00 PM EDT Office Visit Family Medicine [address] [place] [phone] Neha Quiles [address] [place] [address] 03/19/2024 1:00 PM EDT Telemedicine Neurology [address] [place] [phone] Tish Mcintyre PA-C [address] [facility] [place] [address] 04/17/2024 3:00 PM EDT Nurse Only Ancillary [address] [place] [address] [place], Nurse [address] [place] [address] 06/11/2024 2:00 PM EDT Office Visit Cardiology, [facility] [address] [place] [address] Dorothy Wallace CRNP [address] [place] [address] 09/14/2024 3:40 PM EST Office Visit Family Medicine [address] [place] [phone] Carlos Alberto Brown MD [address] [place] [address] [place] [address] 02/04/2025 2:20 PM EDT Office Visit Nephrology [address] [place] [address] Nita Mcmahon MD 200 [facility] [place] [address] Health Maintenance Due Date Last Done Comments [...] Additional history exists CKD HGB USE SMARTSET 90600 03/24/202403/24, 03/24/2023, 02/11/2022, Additional history exists CKD PHOS USE SMARTSET 18937 03/24/202402/27, 02/11/2022, 09/22/2020, Additional history exists Depression [...] this encounter Medical Devices Implanted Type Area Applications Engineering Manager Device Identifier Shelf Expiration Date Model / Serial / Lot Mesh 10 X 14 [id number] - [id number] Implanted:Qty: 1 on 04/07/2010 at [place] [facility] [place] N/A: Abdomen [employer] 01/27/2015 [id number] / / [id number] documented as of this encounter Advance Directives [...] Relationship Healthcare Agent Relationshi p Communication Florencia [facility] Adult Child Health Care Repr esentative (appointed verbally by patient or by statute hierarchy) [email or web address] | 3pay Care Teams General Manager Oracle Data Cloud Relationship Specialty Start Date End Date Carlos Alberto Brown MD [address] [place] [address] [place] [phone] PCP - General Family Medicine 08/04/11 documented as of this encounter"
--- OUTSIDE RECORDS SUMMARY | 2024-04-13 09:19 | External Medical Summary | Summary of Care ---
Author Name Unknown Organization [facility] Address [address] [facility] [address] Phone [phone] Care Team Providers Care Metal Caster Name Role Phone Carlos Alberto Brown MD Primary Care Provide r Reason for Visit * Reason Onset Date Comments Health Maintenance 02/20/2024 Encounter Details Date Type Department Care Team (Late st Contact Info) Description 02/20/[address] [phone] Carlos Alberto Brown MD [address] [place] [address] [place] [address] Health Maintenance Allergies Active Allergy Reactions Criticality [...] ReleaseIndications: Takotsubo cardiomyopathy,New nary artery disease involving [place] coronary artery of [place] heart without angina pectoris,HTN, goal below 140/90 [...] SPRAYS INTO EACH NOSTRIL EVERY DAY Active PacerProuch Delica Lancets 33G Use as directed. Use [...] XL)Indications:Tako tsubo cardiomyopathy,New nary artery disease involving [place] coronary artery of [place] heart without angina pectoris,HTN, goal below 140/90 [...] Problem Noted Date Diagnosed Date Atherosclerosis of [place] co ronary artery without angina pectoris 09/13/2023 [...] Powell and Dr. Solomon, 1994 Follow-up examination, [facility] other surgery 04/23/2003 05/09/2012 DCIS [...] Telephone Encounter - Justa St LPN - 02/21/2024 7:42 AM EDT [facility] faxed back eye exam from 2020 that we already have. * Telephone Encounter - Justa St LPN [...] 2023 HbA1c 03/13/2024 CKD HGB USE SMARTSET 16708 03/24/2024 CKD PHOS USE SMARTSET 05973 03/24/2024 Depression Monitoring 04/14/2024 GFR 05/18/2024 Eye [facility]sel[facility] last Labs February ordered and scheduled Care Gap Outreach Action Taken: Spoke to patient documented in this encounter Plan of Treatment Upcoming Encounters Date Type Department Care Team (Late st Contact Info) Description 03/05/2024 11:00 AM EDT Laboratory Laboratory [address] [place] [phone] Dorothy, Lab [address] [place] [address] 03/15/2024 2:00 PM EDT Office Visit Family [address] [place] [phone] Neha Quiles CRNP [address] [place] [address] [place] [address] 03/19/2024 1:00 PM EDT Telemedicine Neurology [place] [address] [place] [phone] Tish Mcintyre PA-C [address] [facility] [place] [phone] 04/17/2024 3:00 PM EDT Nurse Only Ancillary [address] [place] [address] Serg, Nurse [address] [place] [address] 06/11/2024 2:00 PM EDT [facility] [place] [address] Dorothy Wallace CRNP [address] [place] [address] 09/14/2024 3:40 PM EST Office Visit Family [address] [place] [phone] Carlos Alberto Brown MD [address] [place] [address] [place] [address] 02/04/2025 2:20 PM EDT Office Visit Nephrology [address] [place] [address] Nita Mcmahon MD 200 [facility] [place] [address] Scheduled Orders Name Type Priority Associated Diagnoses [...] Additional history exists CKD HGB USE SMARTSET 47474 03/24/202403/24, 03/24/2023, 02/11/2022, Additional history exists CKD PHOS USE SMARTSET 72785 03/24/202402/27, 02/11/2022, 09/22/2020, Additional history exists Depression [...] this encounter Medical Devices Implanted Type Area Dairy Clerk Device Identifier Shelf Expiration Date Model / Serial / Lot Mesh 10 X 14 [id number] - [id number] Implanted:Qty: 1 on 04/07/2010 [place] [facility] [place]A: Abdomen [employer] 01/27/2015 [id number] / / [id number] documented as of this encounter Visit Diagnoses [...] Agents on File Name Relationship Healthcare Agent [facility] Communication [facility]ncia [facility] Adult Child Health Care Repr esentative (appointed verbally by patient or by statute hierarchy) [email or web address] Care Teams Metal Caster Relationship Specialty Start Date End Date Carlos Alberto Brown MD [address] [place] [address] [place] [phone] PCP - General Family Medicine 08/04/11 documented as of this encounter
--- OUTSIDE RECORDS SUMMARY | 2024-04-13 09:19 | External Medical Summary | Summary of Care ---
Author Name Unknown Organization [facility] Address [address] [facility] [place] [address] Phone [phone] Care Team Providers Care Radiology Teacher Name Role Phone Carlos Alberto Brown MD Primary Care Provide r Reason for Visit * Reason Onset Date Comments Remote Patient Monitoring Alert 02/07/2024 Encounter Details Date Type Department Care Team (Late st Contact Info) Description 02/07/2024 Home Monitoring Care Coordination [address] [place] [address] HeppdMere betancourt LPN HTN, goal [...] as of this encounter (statuses as of 02/13/2024) Medications Medication Sig Dispensed Refills Start Date [...] ReleaseIndications: Takotsubo cardiomyopathy,New nary artery disease involving [place] coronary artery of [place] heart without angina pectoris,HTN, goal below 140/90 [...] SPRAYS INTO EACH NOSTRIL EVERY DAY Active [email or web address] Delica Lancets 33G Use as directed. Use to test blood glucose once daily Active [email or web address] Ultra In Vitro Strip (Glucose Blood) Test [...] XL)Indications:Tako tsubo cardiomyopathy,New nary artery disease involving [place] coronary artery of [place] heart without angina pectoris,HTN, goal below 140/90 [...] before bedtime. 90 Tablet 3 01/04/2024 Active clonazePAM 1 MG Oral Tablet (KlonoPIN)Indicatio ns:Anxiety state,Insomnia Take 1 Tablet by mouth at bedtime as needed for Anxiety or Insomnia. 30 Tablet 01/18/2024 Active Atorvastatin Calcium 40 MG Oral Tablet (Lipitor)Indication s:Hyperlipidemia with target LDL less than 70 TAKE ONE TABLET BY MOUTH EVERY DAY 90 Tablet 2 01/30/2024 Active documented as of this encounter (statuses as of 02/13/2024) Active Problems Problem Noted Date Diagnosed Date Atherosclerosis of [place] co ronary artery without angina pectoris 09/13/2023 [...] as of this encounter (statuses as of 02/13/2024) Resolved Problems Problem Noted Date Diagnosed Date [...] as of this encounter (statuses as of 02/13/2024) Immunizations Name Administration Dates Next Due COVID-19 [...] this encounter Progress Notes * Roxanne Ramirez, [facility] - 02/13/2024 11:40 AM EDT Noted by MT. Roxanne Ramirez RPh, PharmD Clinical Pharmacist - Final Installer Inspector [facility] 02/13/2024, 11:40 AM [phone] * Nita Mcmahon MD - 02/10/2024 4:32 PM EDT Modified target for now < 140/90 * Roxanne Ramirez [facility] - 02/07/2024 4:15 PM EDT Systolic Diastolic Pulse Systolic Diastolic 136 73 Average 137 75 133 72 135 71 High 81 81 138 76 Low 71 71 139 78 143 81 Range 10 10 134 76 Count 7 7 - just want to confirm BP target. 130/80 or 140/90? Roxanne Ramirez RPh, PharmD Clinical Pharmacist - Final Installer Inspector [facility] 02/07/2024, 4:16 PM .[phone] * Mere Stephens LPN - 02/07/2024 9:55 AM EDT [place] [id number] [place] is currently participating in the [facility] Hypertension Management Program and had a reading on 02/07/2024 of 136/73. Pt has alerted for an Average BP over 7 days > 130/80 . Parameters are currently set as follows: Average BP over 7 days > 130/80 Singular Systolic BP Reading < 90 or > 180 Singular Diastolic BP Reading <50 or > 120 Patient is not reporting new symptoms or [...] 1:00 PM EDT Cardiac Studies Cardiac Studies, [facility] [address] [place] [address] 03/15/2024 2:00 PM EDT Office Visit [address] [place] [phone] Neha Quiles CRNP [address] [place] [address] [place] [address] 03/19/2024 1:00 PM EDT Telemedicine Neurology [address] [place] [phone] Tish Mcintyre PA-C [address] [facility] [place] [address] 04/17/2024 3:00 PM EDT Nurse Only Ancillary [address] [place] [address] Serg, Nurse [address] [place] [address] 06/11/2024 2:00 PM EDT Office Visit Cardiology, [facility] [address] [address] Dorothy Wallace CRNP 132 [place] [address] 09/14/2024 3:40 PM EST Office Visit Family [address] [place] [phone] Carlos Alberto Brown MD [address] [place] [address] [place] [address] 02/04/2025 2:20 PM EDT Office Visit Nephrology [address] [place] [address] Nita Mcmahon MD [address] [place] [address] [place] [address] Health Maintenance Due Date Last Done Comments [...] Additional history exists CKD HGB USE SMARTSET 52891 03/24/202403/24, 03/24/2023, 02/11/2022, Additional history exists CKD PHOS USE SMARTSET 78934 03/24/202402/27, 02/11/2022, 09/22/2020, Additional history exists Depression [...] this encounter Medical Devices Implanted Type Area Music Agent Device Identifier Shelf Expiration Date Model / Serial / Lot Mesh 10 X 14 [id number] - [id number] Implanted:Qty: 1 on 04/07/2010 at [place] [facility] [place] N/A: Abdomen [employer] 01/27/2015 [id number] / / [id number] documented as of this encounter Visit Diagnoses [...] verbally by patient or by statute hierarchy) [email or web address] Care Teams Radiology Teacher Relationship Specialty Start Date End Date Carlos Alberto Brown MD [address] [place] [address] [place] [address] PCP - General Family Medicine 08/04/11 documented as of this encounter
--- NOTE | 2024-04-13 11:39 | Neurology Consultation ---
Date of Consultation April 13, 2024 Assessment & Plan (1) Encephalopathy: Metabolic encephalopathy in setting of UTI Agree with continued antimicrobial therapy Recommend continue frequent neurological assessments Obtain stat CT brain without contrast for any acute neurological decline Continue to monitor/control blood pressure & blood glucose Continue to monitor telemetry closely Continue to monitor renal and hepatic function, keep euvolemic Ok from neurology perspective for VTE prophylaxis PT/OT/SLT to eval and treat Telehealth Consultation Telehealth Information Telehealth Information: I performed this visit using a real-time telehealth connection between my location and the patients location ([facility]). After connecting through interactive tele-video, patient was identified by name and date of and/or wristband check.Patient (or authorized healthcare client representative) was informed that this was a telemedicine visit and it was being conducted confidentially over secure lines. My office door was closed and no one else was present in the room with me.Patient (or authorized healthcare client representative) provided consent to proceed with the visit, expressed an unders tanding of privacy and security of the telemedicine visit, and gave permission to have a hospital client representative in the room in order to assist with the visit and to conduct portions of the visit, as needed. I informed the patient (or authorized healthcare client representative) that I reviewed their record and presented the opportunity for them to ask any questions regarding the visit today. The patient agreed to participate. History of Present Illness Reason for Consultation: Stroke like symptoms- aphasia Requesting Physician: Dr. Jones Attending Physician: Sourav Jones, History of Present Illness 73yo female with significant past medical hx of MS heart failure CAD HTN hyperlipidemia DM breast CA presented with fever, changes in mentation found to have UTI. Has undergone brain imaging - MRI depicts no overt evidence of acute ischemic stroke or other acute intracranial abnormality. She is receiving antimicrobial therapy. I have performed televideo consultation. She is awake and able to answer most questions appropriately. She is able to name objects on televideo monitor, repeat phrases and perform complex/embedded commands without deficit. Neurological exam is non lateralizing/nonfocal in terms of motor strength and coordination. She speaks slowly and appears lethargic. Has difficulty recalling all events leading up to hospitalization. Fortunately denies complaint at this time and appears in no apparent distress or discomfort. family at bedside, all questions answered. Allergies Allergy/AdvReac Type Severity Reaction Status Date / Time oxycodone Allergy Mild hives Verified 04/13/24 00:45 Gadolinium-Containing Allergy Hives Verified 04/13/24 00:45 Contrast Medi latex Allergy itching Verified 04/13/24 00:45 Home Medications Medication Instructions Recorded Confirmed Type amlodipine 10 mg tablet 10 mg PO QAM 04/13/24 04/13/24 History aspirin 81 mg tablet,delayed 81 mg PO QAM 04/13/24 04/13/24 History release atorvastatin 40 mg tablet 40 mg PO DAILY 04/13/24 04/13/24 History baclofen 10 mg tablet 10 mg PO TID 04/13/24 04/13/24 History clonazepam 1 mg tablet 1 mg PO HS PRN Insomnia 04/13/24 04/13/24 History coenzyme Q10 100 mg capsule 100 mg PO DAILY 04/13/24 04/13/24 History (CoQ-10) conjugated estrogens 0.625 mg/gram 1 applic vaginal .WEEK 04/13/24 04/13/24 History vaginal cream (Premarin) d-mannose 500 mg capsule 500 mg PO BID 04/13/24 04/13/24 History dulaglutide 0.75 mg/0.5 mL 0.75 mg subcut .WEEK 04/13/24 04/13/24 History subcutaneous pen injector (Trulicity) escitalopram oxalate 20 mg tablet 20 mg PO QAM 04/13/24 04/13/24 History esomeprazole magnesium 40 mg 40 mg PO QAM 04/13/24 04/13/24 History capsule,delayed release gabapentin 600 mg tablet 600 mg PO HS 04/13/24 04/13/24 History metformin 1,000 mg tablet 1,000 mg PO BID 04/13/24 04/13/24 History metoprolol succinate 25 mg 12.5 mg PO AMHS 04/13/24 04/13/24 History tablet,extended release 24 hr spironolactone 25 mg tablet 25 mg PO QAM 04/13/24 04/13/24 History turmeric root extract 500 mg tablet 500 mg PO QPM 04/13/24 04/13/24 History valsartan 160 mg tablet 160 mg PO HS 04/13/24 04/13/24 History Patient History Medical History CAD (coronary artery disease) History of COVID-19 11/12/2022 + home test. congestion, cough, fatigue. resolved. Volvulus hx History of gout Fibromyalgia Spinal stenosis Lumbar herniated disc DDD (degenerative disc disease) Bladder retention Bladder incontinence Hypothyroidism History of skin cancer removed History of breast cancer dx'd 1997. hx surgery + radiation. Anxiety Neuropathy GERD (gastroesophageal reflux disease) Dysphagia Multiple sclerosis Surgical History History of hysterectomy History of intestinal surgery S/P trigger finger release multiple History of surgery D&E History of D&C History of lumpectomy of right breast benign H/O vein stripping History of left mastectomy denies limb restriction History of lumpectomy of left breast malignant History of colonoscopy Family History Other Cancer Heart disease Hypertension No family history of adverse response to anesthesia Social History Smoking Status: Former smoker Second Hand Exposure: No; Do You Dip or Chew Tobacco: No; Hx Alcohol Use: No Hx Substance Use: No Preferred Language: Citizen Of [place] Communication Ability: Effective Jig Inspector Required: No Beliefs That Will Affect Care: None Current Living Situation: Spouse Other Information That Helps Us Care for You: No Feels Safe at Home: Yes Safety Concerns: Feels Safe At This Time Assistive Devices: Walker Physical Exam Neurological Examination: Mental Status: Awake but appears lethargic Will answer questions but appears to easily fall back to sleep Fluency is slowed but naming repetition and comprehension appear grossly intact. CN testing: I: Difficult to reliably assess II:Reports no changes in visual acuity III/IV/: No evidence of gaze preference, hippus, nystagmus or roving eye movements V: Facial sensation is difficult to reliably assess VII: Facial movements appear without evidence of asymmetry VIII: Hearing appears grossly intact to loud voice bilaterally IX/X: Palate is difficult to accurately visualize XI: Shoulder shrug is difficult to reliably assess XII: Tongue is difficult to reliably assess Motor exam: Strength appears grossly intact/symmetric in all extremities Sensory: Sensation is difficult to reliably assess Coordination: Deferred Reflexes: Deferred Gait: Deferred Results & Data Vital Signs (Past 12 Hours) Vital Signs Temp Pulse Pulse Pulse Resp BP BP 04/13/24 07:46 37.9 C H 82 18 164/83 H 04/13/24 06:49 75 04/13/24 04:45 04/13/24 04:22 79 04/13/24 04:03 36.9 C 76 18 167/75 H 04/13/24 02:02 65 04/13/24 02:00 37.9 C H 64 19 153/69 H 04/13/24 01:30 140/63 04/13/24 01:30 140/63 04/13/24 00:30 145/79 H 04/13/24 00:30 145/79 H 04/13/24 00:30 145/79 H 04/13/24 00:18 71 23 04/13/24 00:15 140/75 04/13/24 00:15 140/75 04/13/24 00:15 140/75 04/13/24 00:15 140/75 04/13/24 00:15 70 19 04/13/24 00:06 71 20 04/13/24 00:00 142/81 H 04/13/24 00:00 142/81 H 04/13/24 00:00 72 20 04/12/24 23:57 70 21 04/12/24 23:51 71 20 04/12/24 23:48 73 23 04/12/24 23:45 135/80 Pulse Ox O2 Del Method 04/13/24 07:46 92 Room Air 04/13/24 06:49 04/13/24 04:45 Room Air 04/13/24 04:22 04/13/24 04:03 94 Room Air 04/13/24 02:02 04/13/24 02:00 95 Room Air 04/13/24 01:30 04/13/24 01:30 04/13/24 00:30 04/13/24 00:30 04/13/24 00:30 04/13/24 00:18 93 04/13/24 00:15 04/13/24 00:15 04/13/24 00:15 04/13/24 00:15 04/13/24 00:15 94 04/13/24 00:06 95 04/13/24 00:00 04/13/24 00:00 04/13/24 00:00 94 Room Air 04/12/24 23:57 94 08/15/24 23:51 93 04/12/24 23:48 93 04/12/24 23:45 Laboratory Results Abnormal lab results 04/12/24 04/12/24 04/12/24 Range/Units 21:46 22:44 23:48 RBC (4.20-5.40) M/uL Hct (37.0-47.0) % MPV (9.4-12.4) fL Lymph # (Auto) 0.76 L (1.20-3.40) K/uL Sodium 133 L (136-145) mmol/L Glucose 183 H (70-99(Fasting)) mg/dl POC Glucose 133 H (70-99) mg/dl Urine pH 8.0 H (4.5-7.5) Ur Leukocyte Esterase Trace H (Negative) Urine WBC (Auto) 21-50 H (0-5) /hpf Urine Bacteria (Auto) 4+ H (None Seen) 04/13/24 04/13/24 04/13/24 Range/Units 04:50 07:17 08:24 RBC (4.20-5.40) M/uL Hct (37.0-47.0) % MPV (9.4-12.4) fL Lymph # (Auto) (1.20-3.40) K/uL Sodium 130 L (136-145) mmol/L Glucose 126 H (70-99(Fasting)) mg/dl POC Glucose 136 H 122 H (70-99) mg/dl Urine pH (4.5-7.5) Ur Leukocyte Esterase (Negative) Urine WBC (Auto) (0-5) /hpf Urine Bacteria (Auto) (None Seen) 04/13/24 Range/Units 08:57 RBC 4.09 L (4.20-5.40) M/uL Hct 36.7 L (37.0-47.0) % MPV 9.1 L (9.4-12.4) fL Lymph # (Auto) 0.82 L (1.20-3.40) K/uL Sodium (136-145) mmol/L Glucose (70-99(Fasting)) mg/dl POC Glucose (70-99) mg/dl Urine pH (4.5-7.5) Ur Leukocyte Esterase (Negative) Urine WBC (Auto) (0-5) /hpf Urine Bacteria (Auto) (None Seen) Diagnostic Findings Head CT 04/12/24 22:06 CR Exam(s): CT HEAD Without Contrast EXAM: CT Head Without Intravenous Contrast CLINICAL HISTORY: Reason for exam: neuro deficit, acute stroke suspected. TECHNIQUE: Axial computed tomography images of the head/brain without intravenous contrast. CTDI is 36.67 mGy and DLP is 625.8 mGy-cm. Automated exposure control was utilized for the study. A dose lowering technique was utilized adhering to the principles of ALARA. COMPARISON: MRI brain FINDINGS: Brain: Generalized parenchymal volume loss. Periventricular and deep cerebral white matter hypoattenuation suggesting chronic small vessel ischemic change. Quan-white matter differentiation maintained. No hemorrhage, mass effect, parenchymal edema, or midline shift. Ventricles: Unremarkable. No hydrocephalus. Bones/joints: Unremarkable. No acute fracture. Soft tissues: Unremarkable. Vasculature: Intracranial atherosclerosis. No hyperdense vessel sign. Sinuses: Unremarkable as visualized. Mastoid air cells: Unremarkable as visualized. No mastoid effusion. Orbits: Bilateral lens replacements. IMPRESSION: No acute intracranial process. Communications: Call Doctor Stroke Electronically signed by: Jagruti Casanova M.D. 04/12/24 22:32 PM Chest X-Ray 04/12/24 22:56 XR chest 1V portable HISTORY: fever COMPARISON: None. FINDINGS: The lungs are clear. Cardiac silhouette is normal in size. No pleural effusions. No pneumothorax. Calcifications and surgical clips within the left axilla/breast. IMPRESSION: No acute process. ACT 112: Negative or not required by law. Electronically signed by: Micah Mckenna M.D. 04/13/2024 7:37 AM Brain MRI 04/13/24 00:21 Exam(s): MRI HEAD Without Contrast EXAM: MR Head Without Intravenous Contrast CLINICAL HISTORY: Reason for exam: stroke like symptoms. TECHNIQUE: Magnetic resonance images of the head/brain without intravenous contrast in multiple planes. COMPARISON: CT head 04/12/22 FINDINGS: Brain: Unremarkable. No diffusion restriction to suggest acute cerebral ischemia. No acute intracranial hemorrhage. No mass-effect or shift. Normal proximal intracranial flow voids. Generalized parenchymal volume loss. Periventricular and deep cerebral white matter FLAIR signal hyperintensity consistent with chronic small vessel ischemic disease. Ventricles: Unremarkable. No hydrocephalus. Bones/joints: Unremarkable. No acute fracture. Sinuses: Unremarkable as visualized. Mastoid air cells: Unremarkable as visualized. No mastoid effusion. Orbits: Bilateral lens replacements. IMPRESSION: No acute intracranial findings. Electronically signed by: Jagruti Casanova M.D. 04/13/24 02:33 AM Head MRA 04/13/24 00:28 Exam(s): MRA HEAD Without Contrast EXAM: MR Angiography Head Without Intravenous Contrast CLINICAL HISTORY: Reason for exam: stroke like sx. TECHNIQUE: Magnetic resonance angiography images of the head without intravenous contrast. COMPARISON: CT head of the same date FINDINGS: Right internal carotid artery: No acute findings. Intracranial segment is patent with no significant stenosis. No aneurysm. Right anterior cerebral artery: Unremarkable. No occlusion or significant stenosis. No aneurysm. Right middle cerebral artery: Unremarkable. No occlusion or significant stenosis. No aneurysm. Right posterior cerebral artery: Unremarkable. No occlusion or significant stenosis. No aneurysm. Right vertebral artery: Unremarkable as visualized. Left internal carotid artery: No acute findings. Intracranial segment is patent with no significant stenosis. No aneurysm. Left anterior cerebral artery: Unremarkable. No occlusion or significant stenosis. No aneurysm. Left middle cerebral artery: Unremarkable. No occlusion or significant stenosis. No aneurysm. Left posterior cerebral artery: Unremarkable. No occlusion or significant stenosis. No aneurysm. Left vertebral artery: Unremarkable as visualized. Basilar artery: Unremarkable. No occlusion or significant stenosis. No aneurysm. IMPRESSION: Normal head/brain MRA. Electronically signed by: Jagruti Casanova M.D. 04/13/24 01:14 AM Venous Doppler Study 04/13/24 02:00 Exam(s): US VENOUS BILATERAL LOWER EXTREMITIES EXAM: US Duplex Bilateral Lower Extremities Veins CLINICAL HISTORY: Reason for exam: leg swelling. TECHNIQUE: Real-time duplex ultrasound scan of the bilateral lower extremity veins integrating B-mode two-dimensional vascular structure, Doppler spectral analysis, color flow Doppler imaging and compression. COMPARISON: No relevant prior studies available. FINDINGS: Right deep veins: Unremarkable. No DVT in the right common femoral, femoral, proximal deep femoral or popliteal veins. The veins demonstrate normal color flow, are normally compressible, with normal phasic flow and/or augmentation response. Right superficial veins: Right great saphenous vein not visualized. Left deep veins: Unremarkable. No DVT in the left common femoral, femoral, proximal deep femoral or popliteal veins. The veins demonstrate normal color flow, are normally compressible, with normal phasic flow and/or augmentation response. Left superficial veins: Unremarkable. No thrombus in the visualized left great saphenous vein. Soft tissues: No acute findings. IMPRESSION: No evidence of acute DVT. Electronically signed by: Jagruti Casanova M.D. 04/13/24 04:16 AM Carotid Doppler Study 04/13/24 02:01 BILATERAL CAROTID DOPPLER STUDY HISTORY: Transient ischemic attack. COMPARISON: None. TECHNIQUE: Real-time, grayscale, and color Doppler sonography of the carotid arteries was performed. Imaging reviewed in the transverse and longitudinal planes. All measurements were calculated based on NASCET criteria. FINDINGS: Antegrade flow is seen in the bilateral vertebral arteries. Minimal calcified plaque within the bilateral carotid bifurcations. The peak systolic velocity within the right ICA is 83 cm/s. The right systolic ratio is 1.5. The peak systolic velocity within the left ICA is 79 cm/s. The left systolic ratio is 1.1. IMPRESSION: No hemodynamically significant stenosis seen within the carotid arteries. ACT 112: Negative or not required by law. Electronically signed by: Micah Mckenna M.D. 04/13/2024 7:38 AM Medications Administered Home Medications Medication Instructions Recorded Confirmed Last Taken amlodipine 10 mg tablet 10 mg PO QAM 04/13/24 04/13/24 Unknown aspirin 81 mg tablet,delayed 81 mg PO QAM 04/13/24 04/13/24 Unknown release atorvastatin 40 mg tablet 40 mg PO DAILY 04/13/24 04/13/24 Unknown baclofen 10 mg tablet 10 mg PO TID 04/13/24 04/13/24 Unknown clonazepam 1 mg tablet 1 mg PO HS PRN Insomnia 04/13/24 04/13/24 Unknown coenzyme Q10 100 mg capsule 100 mg PO DAILY 04/13/24 04/13/24 Unknown (CoQ-10) conjugated estrogens 0.625 mg/gram 1 applic vaginal .WEEK 04/13/24 04/13/24 Unknown vaginal cream (Premarin) d-mannose 500 mg capsule 500 mg PO BID 04/13/24 04/13/24 Unknown dulaglutide 0.75 mg/0.5 mL 0.75 mg subcut .WEEK 04/13/24 04/13/24 Unknown subcutaneous pen injector (Trulicity) escitalopram oxalate 20 mg tablet 20 mg PO QAM 04/13/24 04/13/24 Unknown esomeprazole magnesium 40 mg 40 mg PO QAM 04/13/24 04/13/24 Unknown capsule,delayed release gabapentin 600 mg tablet 600 mg PO HS 04/13/24 04/13/24 Unknown metformin 1,000 mg tablet 1,000 mg PO BID 04/13/24 04/13/24 Unknown metoprolol succinate 25 mg 12.5 mg PO AMHS 04/13/24 04/13/24 Unknown tablet,extended release 24 hr spironolactone 25 mg tablet 25 mg PO QAM 04/13/24 04/13/24 Unknown turmeric root extract 500 mg tablet 500 mg PO QPM 04/13/24 04/13/24 Unknown valsartan 160 mg tablet 160 mg PO HS 04/13/24 04/13/24 Unknown Active Medications Generic Name Dose Route Start Last Admin Trade Name Freq PRN Reason Stop Dose Admin Aspirin 81 mg 04/13/24 09:00 04/13/24 07:22 Aspirin 81 Mg Ectab PO 05/13/24 08:59 81 mg QAM SILVESTRE Administration Atorvastatin Calcium 40 mg 04/13/24 09:00 04/13/24 07:23 Atorvastatin 40 Mg Tab PO 05/13/24 08:59 40 mg DAILY SILVESTRE Administration Baclofen 10 mg 04/13/24 09:00 04/13/24 07:21 Baclofen 10 Mg Tab PO 05/13/24 08:59 10 mg TID SILVESTRE Administration Enoxaparin Sodium 40 mg 04/13/24 09:00 04/13/24 07:23 Enoxaparin Inj 40 Mg/0.4 Ml Syr SQ 05/13/24 08:59 40 mg QAM SILVESTRE Administration Escitalopram Oxalate 20 mg 04/13/24 09:00 04/13/24 07:22 Escitalopram Oxalate 20 Mg Tab PO 05/13/24 08:59 20 mg QAM SILVESTRE Administration Promethazine HCl 6.25 mg in 50.25 mls @ 201 mls/hr 04/13/24 02:00 04/13/24 04:57 Phenergan IV 05/13/24 01:59 Infused Q6H PRN Infusion Nausea And Vomiting Insulin Aspart 0 units 04/13/24 04:37 04/13/24 08:48 Insulin Aspart Per Unit Charge SC 05/13/24 04:36 Not Given ACHS SILVESTRE Pantoprazole Sodium 40 mg 04/13/24 09:00 04/13/24 07:23 Pantoprazole 40 Mg Tab PO 05/13/24 08:59 40 mg QAM SILVESTRE Administration
--- NOTE | 2024-04-13 15:20 | Hospitalist Progress Note ---
Date of Service April 13, 2024 Assessment & Plan (1) Encephalopathy: Plan: Multifactorial: Infection related (complicated UTI, aspiration pneumonitis), no sepsis for now. TIA given aphasia symptoms, possible aspirin failure. MRI and MRA are negative for acute stroke or thrombosis Home baclofen and benzo medications contributory chronic diastolic heart failure (EF 60%, TTE 2023), patient removed right side history of Takotsubo cardiomyopathy nonocclusive CAD valvular heart disease (mild MR/TR, mild to moderate AR) hypertension, stable hyperlipidemia, on statin Rx hypothyroidism, euthyroid as of today's TSH multiple sclerosis, RRMS as per outpatient Neurology note. Currently not on maintenance Rx. DM2 on oral medications, well-controlled as of recent hemoglobin A1c of 6.4 last month recurrent left breast cancer status post surgery status post radiation status post incomplete tamoxifen Rx, in remission Bilateral leg swelling. 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 LE venous Dopplers negative for DVT ISS BG goal 1 10-1 40, carb count coverage DVT prophylaxis. Lovenox subcu Full code Patient daughter requesting updates from providers. Ms. Dali Carlos, contact #[phone]. Text document was generated using [employer] voice recognition software. It may contain grammatical or spelling errors. Kindly contact undersigned for clarification of any documentation item in question. Admission and Anticipated Discharge Date Admission Date: April 13, 2024 Subjective Chart and data reviewed. Patient admitted early this a.m. Patient seems to have some expressive aphasia but she does not think that its new. MRI and MRA are negative for acute stroke or thrombosis. Review of Systems Review of Systems: Constitutional- no fever; no chills Eyes- no acute visual changes ENT- no sinus drainage; no pharyngitis Pulmonary- no cough, no wheezing, no shortness of breath Cardiac- no chest pain, no palpitations, no orthopnea, no dependent edema GI- no nausea, no vomiting, no diarrhea, no melena, no hematochezia - no dysuria, no hematuria Hematologic- no unusual bruising, no unusual bleeding Lymphatics- no adenopathy - no dysuria or hematuria Neuro- no headaches, seems to have some speech finding difficulties but she does not think that is new Psych- no anxiety, no depression Physical Exam Physical Exam: General- adult female seen at bedside Head- atraumatic Eyes- PERRL, EOMI, anicteric ENT- oropharynx clear Neck- supple, no JVD, no adenopathy, no thyromegaly; carotids +2/2, no bruits appreciated Lungs- clear to auscultation and percussion Heart- regular rhythm; no murmur, no gallop, no rub appreciated Abdomen- normal bowel sounds, soft, nontender, no masses or hepatosplenomegaly Extremities- 1 + pretibial edema, no calf tenderness; Neuro- alert, oriented x 3; PERRL, EOMI; no facial palsy; some dysarthria; motor 3/5 bilaterally; no cogwheel rigidity; patellar DTRs +2/2; toes downgoing bilaterally; Skin- warm & dry Results & Data Results & Data Vital Signs (Past 12 Hours) Vital Signs Temp Pulse Pulse Resp BP Pulse Ox O2 Del Method 04/13/24 07:46 37.9 C H 82 18 164/83 H 92 Room Air 04/13/24 06:49 75 04/13/24 04:45 Room Air 04/13/24 04:22 79 04/13/24 04:03 36.9 C 76 18 167/75 H 94 Room Air Diagnostic Findings Laboratory Results WBC 7.64 K/ul (4.8-10.8) 04/13/24 08:57 RBC 4.09 M/uL (4.20-5.40) L 04/13/24 08:57 Hgb 12.5 g/dl (12.0-16.0) 04/13/24 08:57 Hct 36.7 % (37.0-47.0) L 04/13/24 08:57 MCV 89.7 fL (80.0-100.0) 04/13/24 08:57 MCH 30.6 pg (25.0-34.0) 04/13/24 08:57 MCHC 34.1 g/dL (32.0-36.0) 04/13/24 08:57 RDW Std Deviation 41.4 fL (36.4-46.3) 04/13/24 08:57 RDW Coeff of [place] 12.4 % (11.5-14.5) 04/13/24 08:57 Plt Count 241 K/uL (130-400) 04/13/24 08:57 MPV 9.1 fL (9.4-12.4) L 04/13/24 08:57 Immature Gran % (Auto) 0.3 % 04/13/24 08:57 Neut % (Auto) 82.8 % 04/13/24 08:57 Lymph % (Auto) 10.7 % 04/13/24 08:57 [place] % (Auto) 5.8 % 04/13/24 08:57 Eos % (Auto) 0.1 % 04/13/24 08:57 Baso % (Auto) 0.3 % 04/13/24 08:57 Neut # (Auto) 6.33 K/uL (1.40-6.50) 04/13/24 08:57 Lymph # (Auto) 0.82 K/uL (1.20-3.40) L 04/13/24 08:57 [place] # (Auto) 0.44 K/uL (0.11-0.59) 04/13/24 08:57 Eos # (Auto) 0.01 K/uL (0.00-0.50) 04/13/24 08:57 Baso # (Auto) 0.02 K/uL (0.00-0.20) 04/13/24 08:57 Immature Gran # (Auto) 0.02 K/uL (0.01-0.20) 04/13/24 08:57 Absolute Nucleated RBC Cancelled 04/13/24 07:17 Nucleated RBC % (auto) Cancelled 04/13/24 07:17 Neutrophils % (Manual) Cancelled 04/13/24 07:17 Band Neutrophils % Cancelled 04/13/24 07:17 Lymphocytes % (Manual) Cancelled 04/13/24 07:17 Prolymphocyte % Cancelled 04/13/24 07:17 Reactive Lymphs % (Man) Cancelled 04/13/24 07:17 Monocytes % (Manual) Cancelled 04/13/24 07:17 Eosinophils % (Manual) Cancelled 04/13/24 07:17 Basophils % (Manual) Cancelled 04/13/24 07:17 Metamyelocytes % (Man) Cancelled 04/13/24 07:17 Myelocytes % (Man) Cancelled 04/13/24 07:17 Promyelocytes % (Man) Cancelled 04/13/24 07:17 Blast Cells % (Manual) Cancelled 04/13/24 07:17 Plasma Cell % (Manual) Cancelled 04/13/24 07:17 Other Cells % Cancelled 04/13/24 07:17 Nucleated RBC % Cancelled 04/13/24 07:17 Neutrophils # (Manual) Cancelled 04/13/24 07:17 Band Neutrophils # Cancelled 04/13/24 07:17 Total Absolute Neuts Cancelled 04/13/24 07:17 Lymphocytes # (Manual) Cancelled 04/13/24 07:17 Prolymphocyte # Cancelled 04/13/24 07:17 Reactive Lymphs # Cancelled 04/13/24 07:17 Total Abs Lymphocytes Cancelled 04/13/24 07:17 Monocytes # (Manual) Cancelled 04/13/24 07:17 Eosinophils # (Manual) Cancelled 04/13/24 07:17 Basophils # (Manual) Cancelled 04/13/24 07:17 Metamyelocytes # (Man) Cancelled 04/13/24 07:17 Myelocytes # (Manual) Cancelled 04/13/24 07:17 Promyelocytes # (Man) Cancelled 04/13/24 07:17 Blast Cells # (Man) Cancelled 04/13/24 07:17 Plasma Cell # (Manual) Cancelled 04/13/24 07:17 Other Cells # Cancelled 04/13/24 07:17 Nucleated RBCs # (Man) Cancelled 04/13/24 07:17 Hypersegmented Neuts Cancelled 04/13/24 07:17 Hyposegmented Neuts Cancelled 04/13/24 07:17 Hypogranular Neuts Cancelled 04/13/24 07:17 Large Granular Lymphs Cancelled 04/13/24 07:17 # Lrg Granular Lymphs Cancelled 04/13/24 07:17 Hairy Cells Cancelled 04/13/24 07:17 Smudge Cells Cancelled 04/13/24 07:17 Toxic Granulation Cancelled 04/13/24 07:17 Toxic Vacuolation Cancelled 04/13/24 07:17 Dohle Bodies Cancelled 04/13/24 07:17 Den Rods Cancelled 04/13/24 07:17 Platelet Estimate Cancelled 04/13/24 07:17 Hypogranular Platelets Cancelled 04/13/24 07:17 Giant Platelets Cancelled 04/13/24 07:17 Platelet Satelliting Cancelled 04/13/24 07:17 RBC Morphology Cancelled 04/13/24 07:17 Polychromasia Cancelled 04/13/24 07:17 Hypochromasia Cancelled 04/13/24 07:17 Poikilocytosis Cancelled 04/13/24 07:17 Basophilic Stippling Cancelled 04/13/24 07:17 Anisocytosis Cancelled 04/13/24 07:17 Microcytosis Cancelled 04/13/24 07:17 Macrocytosis Cancelled 04/13/24 07:17 Spherocytes Cancelled 04/13/24 07:17 Pappenheimer Bodies Cancelled 04/13/24 07:17 Sickle Cells Cancelled 04/13/24 07:17 Target Cells Cancelled 04/13/24 07:17 Tear Drop Cells Cancelled 04/13/24 07:17 Ovalocytes Cancelled 04/13/24 07:17 Stomatocytes Cancelled 04/13/24 07:17 [place] Bodies Cancelled 04/13/24 07:17 Echinocytes Cancelled 04/13/24 07:17 Acanthocytes (Spur) Cancelled 04/13/24 07:17 Rouleaux Cancelled 04/13/24 07:17 RBC Agglutinates Cancelled 04/13/24 07:17 Schistocytes Cancelled 04/13/24 07:17 Sezary Cell Cancelled 04/13/24 07:17 PT 10.3 Seconds (9.0-12.0) 04/12/24 21:46 INR 0.9 (0.9-1.1) 04/12/24 21:46 APTT 26 Seconds (21-31) 04/12/24 21:46 PTT Ratio 1.0 04/12/24 21:46 Sodium 130 mmol/L (136-145) L 04/13/24 07:17 Potassium 4.0 mmol/L (3.5-5.1) 04/13/24 07:17 Chloride 100 mmol/L (98-107) 04/13/24 07:17 Carbon Dioxide 23 mmol/L (21-32) 04/13/24 07:17 Anion Gap 7 (3-11) 04/13/24 07:17 BUN 9 mg/dl (6-23) 04/13/24 07:17 Creatinine 0.70 mg/dl (0.6-1.2) 04/13/24 07:17 Est Cr Clr Drug Dosing 70.5 ml/min 04/13/24 07:17 Est GFR ( Amer) 100.3 ml/min 04/13/24 07:17 Est GFR (Non-Af Amer) 86.6 ml/min 04/13/24 07:17 BUN/Creatinine Ratio 12.9 (10-20) 04/13/24 07:17 Glucose 126 mg/dl (70-99(Fasting)) H 04/13/24 07:17 POC Glucose 119 mg/dl (70-99) H 04/13/24 12:16 Lactate 2.0 mmol/L (0.4-2.0) 04/12/24 22:25 Calcium 9.2 mg/dl (8.6-10.3) 04/13/24 07:17 Magnesium 1.8 mg/dl (1.7-2.4) 04/12/24 21:46 Total Bilirubin 0.3 mg/dl (0.2-1.0) 04/12/24 21:46 AST 13 U/L (13-39) 04/12/24 21:46 ALT 9 U/L (7-52) 04/12/24 21:46 Alkaline Phosphatase 42 U/L (34-104) 04/12/24 21:46 Troponin I High Sens 5.1 pg/ml (0-14) 04/12/24 21:46 Total Protein 7.3 gm/dl (6.0-8.3) 04/12/24 21:46 Albumin 4.5 gm/dl (3.4-5.0) 04/12/24 21:46 Globulin 2.8 gm/dl (2.5-4.0) 04/12/24 21:46 Albumin/Globulin Ratio 1.6 (0.9-2) 04/12/24 21:46 Triglycerides 115 mg/dl (0-150) 04/13/24 07:17 Cholesterol 122 mg/dl (0-200) 04/13/24 07:17 LDL Cholesterol, Calc 62 mg/dl 04/13/24 07:17 VLDL Cholesterol, Calc 23 mg/dl (0-30) 04/13/24 07:17 HDL Cholesterol 37 mg/dl 04/13/24 07:17 Cholesterol/HDL Ratio 3.3 (0-5) 04/13/24 07:17 Procalcitonin 0.03 ng/ml (0-0.5) 04/12/24 21:46 Procalcitonin Cancelled 04/12/24 21:46 Urine Color Yellow 04/12/24 23:48 Urine Appearance Clear (Clear) 04/12/24 23:48 Urine pH 8.0 (4.5-7.5) H 04/12/24 23:48 Ur Specific [place] 1.015 (1.000-1.030) 04/12/24 23:48 Urine Protein Negative (Negative) 04/12/24 23:48 Urine Glucose (UA) Negative (Negative) 04/12/24 23:48 Urine Ketones Negative (Negative) 04/12/24 23:48 Urine Blood Negative (Negative) 04/12/24 23:48 Urine Nitrite Negative (Negative) 04/12/24 23:48 Urine Bilirubin Negative (Negative) 04/12/24 23:48 Urine Urobilinogen Negative (Negative) 04/12/24 23:48 Ur Leukocyte Esterase Trace (Negative) H 04/12/24 23:48 Urine WBC (Auto) 21-50 /hpf (0-5) H 04/12/24 23:48 Urine RBC (Auto) 0-2 /hpf (0-2) 04/12/24 23:48 U Hyaline Cast (Auto) 0-2 /lpf (0-2) 04/12/24 23:48 U Epithel Cells (Auto) 0-2 /hpf (0-2) 04/12/24 23:48 Urine Bacteria (Auto) 4+ (None Seen) H 04/12/24 23:48 Adenovirus (PCR) Not Detected (NotDetected) 04/12/24 21:46 Anaplasma Smear See Comment 04/12/24 21:46 Babesia Smear See Comment 04/12/24 21:46 B. pertussis DNA (PCR) Not Detected (NotDetected) 04/12/24 21:46 B.parapertussis DNA PCR Not Detected (NotDetected) 04/12/24 21:46 Lyme Disease Screen Negative (Negative) 04/12/24 21:46 C. pneumoniae DNA (PCR) Not Detected (NotDetected) 04/12/24 21:46 Coronavirus OC43 (PCR) Not Detected (NotDetected) 04/12/24 21:46 Coronavirus HKU1 (PCR) Not Detected (NotDetected) 04/12/24 21:46 Coronavirus 229E (PCR) Not Detected (NotDetected) 04/12/24 21:46 SARS-CoV-2 (PCR) Not Detected (NotDetected) 04/12/24 21:46 Coronavirus NL63 (PCR) Not Detected (NotDetected) 04/12/24 21:46 Human Metapneumovir PCR Not Detected (NotDetected) 04/12/24 21:46 Influenza Type A (PCR) Not Detected (NotDetected) 04/12/24 21:46 Influenza Type B (PCR) Not Detected (NotDetected) 04/12/24 21:46 M. pneumoniae (PCR) Not Detected (NotDetected) 04/12/24 21:46 Parainfluenza 1 (PCR) Not Detected (NotDetected) 04/12/24 21:46 Parainfluenza 2 (PCR) Not Detected (NotDetected) 04/12/24 21:46 Parainfluenza 3 (PCR) Not Detected (NotDetected) 04/12/24 21:46 Parainfluenza 4 (PCR) Not Detected (NotDetected) 04/12/24 21:46 RSV (PCR) Not Detected (NotDetected) 04/12/24 21:46 Entero/Rhino (PCR) Not Detected (NotDetected) 04/12/24 21:46 Blood Parasites ID Cancelled 04/13/24 07:[address] 04/12/24 22:06 CR Exam(s): CT HEAD Without Contrast EXAM: CT Head Without Intravenous Contrast CLINICAL HISTORY: Reason for exam: neuro deficit, acute stroke suspected. TECHNIQUE: Axial computed tomography images of the head/brain without intravenous contrast. CTDI is 36.67 mGy and DLP is 625.8 mGy-cm. Automated exposure control was utilized for the study. A dose lowering technique was utilized adhering to the principles of ALARA. COMPARISON: MRI brain FINDINGS: Brain: Generalized parenchymal volume loss. Periventricular and deep cerebral white matter hypoattenuation suggesting chronic small vessel ischemic change. Quan-white matter differentiation maintained. No hemorrhage, mass effect, parenchymal edema, or midline shift. Ventricles: Unremarkable. No hydrocephalus. Bones/joints: Unremarkable. No acute fracture. Soft tissues: Unremarkable. Vasculature: Intracranial atherosclerosis. No hyperdense vessel sign. Sinuses: Unremarkable as visualized. Mastoid air cells: Unremarkable as visualized. No mastoid effusion. Orbits: Bilateral lens replacements. IMPRESSION: No acute intracranial process. Communications: Call Doctor Stroke Electronically signed by: Jagruti Casanova M.D. 04/12/24 22:32 PM Chest X-Ray 04/12/24 22:56 XR chest 1V portable HISTORY: fever COMPARISON: None. FINDINGS: The lungs are clear. Cardiac silhouette is normal in size. No pleural effusions. No pneumothorax. Calcifications and surgical clips within the left axilla/breast. IMPRESSION: No acute process. ACT 112: Negative or not required by law. Electronically signed by: Micah Mckenna M.D. 04/13/2024 7:37 AM Brain MRI 04/13/24 00:21 Exam(s): MRI HEAD Without Contrast EXAM: MR Head Without Intravenous Contrast CLINICAL HISTORY: Reason for exam: stroke like symptoms. TECHNIQUE: Magnetic resonance images of the head/brain without intravenous contrast in multiple planes. COMPARISON: CT head 04/12/22 FINDINGS: Brain: Unremarkable. No diffusion restriction to suggest acute cerebral ischemia. No acute intracranial hemorrhage. No mass-effect or shift. Normal proximal intracranial flow voids. Generalized parenchymal volume loss. Periventricular and deep cerebral white matter FLAIR signal hyperintensity consistent with chronic small vessel ischemic disease. Ventricles: Unremarkable. No hydrocephalus. Bones/joints: Unremarkable. No acute fracture. Sinuses: Unremarkable as visualized. Mastoid air cells: Unremarkable as visualized. No mastoid effusion. Orbits: Bilateral lens replacements. IMPRESSION: No acute intracranial findings. Electronically signed by: Jagruti Casanova M.D. 04/13/24 02:33 AM Head MRA 04/13/24 00:28 Exam(s): MRA HEAD Without Contrast EXAM: MR Angiography Head Without Intravenous Contrast CLINICAL HISTORY: Reason for exam: stroke like sx. TECHNIQUE: Magnetic resonance angiography images of the head without intravenous contrast. COMPARISON: CT head of the same date FINDINGS: Right internal carotid artery: No acute findings. Intracranial segment is patent with no significant stenosis. No aneurysm. Right anterior cerebral artery: Unremarkable. No occlusion or significant stenosis. No aneurysm. Right middle cerebral artery: Unremarkable. No occlusion or significant stenosis. No aneurysm. Right posterior cerebral artery: Unremarkable. No occlusion or significant stenosis. No aneurysm. Right vertebral artery: Unremarkable as visualized. Left internal carotid artery: No acute findings. Intracranial segment is patent with no significant stenosis. No aneurysm. Left anterior cerebral artery: Unremarkable. No occlusion or significant stenosis. No aneurysm. Left middle cerebral artery: Unremarkable. No occlusion or significant stenosis. No aneurysm. Left posterior cerebral artery: Unremarkable. No occlusion or significant stenosis. No aneurysm. Left vertebral artery: Unremarkable as visualized. Basilar artery: Unremarkable. No occlusion or significant stenosis. No aneurysm. IMPRESSION: Normal head/brain MRA. Electronically signed by: Jagruti Casanova M.D. 04/13/24 01:14 AM Venous Doppler Study 04/13/24 02:00 Exam(s): US VENOUS BILATERAL LOWER EXTREMITIES EXAM: US Duplex Bilateral Lower Extremities Veins CLINICAL HISTORY: Reason for exam: leg swelling. TECHNIQUE: Real-time duplex ultrasound scan of the bilateral lower extremity veins integrating B-mode two-dimensional vascular structure, Doppler spectral analysis, color flow Doppler imaging and compression. COMPARISON: No relevant prior studies available. FINDINGS: Right deep veins: Unremarkable. No DVT in the right common femoral, femoral, proximal deep femoral or popliteal veins. The veins demonstrate normal color flow, are normally compressible, with normal phasic flow and/or augmentation response. Right superficial veins: Right great saphenous vein not visualized. Left deep veins: Unremarkable. No DVT in the left common femoral, femoral, proximal deep femoral or popliteal veins. The veins demonstrate normal color flow, are normally compressible, with normal phasic flow and/or augmentation response. Left superficial veins: Unremarkable. No thrombus in the visualized left great saphenous vein. Soft tissues: No acute findings. IMPRESSION: No evidence of acute DVT. Electronically signed by: Jagruti Casanova M.D. 04/13/24 04:16 AM Carotid Doppler Study 04/13/24 02:01 BILATERAL CAROTID DOPPLER STUDY HISTORY: Transient ischemic attack. COMPARISON: None. TECHNIQUE: Real-time, grayscale, and color Doppler sonography of the carotid arteries was performed. Imaging reviewed in the transverse and longitudinal planes. All measurements were calculated based on NASCET criteria. FINDINGS: Antegrade flow is seen in the bilateral vertebral arteries. Minimal calcified plaque within the bilateral carotid bifurcations. The peak systolic velocity within the right ICA is 83 cm/s. The right systolic ratio is 1.5. The peak systolic velocity within the left ICA is 79 cm/s. The left systolic ratio is 1.1. IMPRESSION: No hemodynamically significant stenosis seen within the carotid arteries. ACT 112: Negative or not required by law. Electronically signed by: Micah Mckenna M.D. 04/13/2024 7:38 AM
--- NOTE | 2024-04-13 15:28 | Electrocardiogram Report ---
Test Reason : Blood Pressure : */* mmHG Vent. Rate : 75 BPM Atrial Rate : 75 BPM P-R Int : 168 ms QRS Dur : 74 ms QT Int : 362 ms P-R-T Axes : 42 2 48 degrees QTcB Int : 404 ms Normal sinus rhythm Possible Anterior infarct , age undetermined Abnormal ECG When compared with ECG of 29-Apr-2023 07:14, T wave inversion no longer evident in Inferior leads T wave inversion no longer evident in Anterolateral leads QT has shortened Confirmed by Hernandez Mcgee ([id number]) on 04/13/2024 3:28:23 PM Referred By: REFERRED SELF Confirmed By: Hernandez Mcgee
[2024-04-13] MEDS: GABAPENTIN 600 MG TAB PO SCH (20:00)
[2024-04-13] MEDS: AMOXICILLIN/CLAVULANATE 875 MG TAB PO SCH (20:01)
[2024-04-14] MEDS: cefTRIAXone SODIUM 2,000 MG/50 ML BAG IV SCH (00:09)
[2024-04-14] MEDS ORDERED: PROMETHAZINE 12.5 MG/50.5 ML BAG IV PRN (01:13)
[2024-04-14] MEDS: PROMETHAZINE 6.25 MG/50.25 ML BAG IV STA (01:22)
[2024-04-14 07:21] LABS: Basophils # (auto) 0.01 K/uL (0.00-0.20); Basophils % (auto) 0.2 %; Eosinophils # (auto) 0.07 K/uL (0.00-0.50); Eosinophils % (auto) 1.4 %; Hematocrit (blood only) 34.4 % (37.0-47.0); Hemoglobin 11.7 g/dl (12.0-16.0); Immature Granulocytes # (auto) 0.02 K/uL (0.01-0.20); Immature Granulocytes % (auto) 0.4 %; Lymphocytes # (auto) 1.05 K/uL (1.20-3.40); Lymphocytes % (auto) 21.7 %; Mean Corpuscular Hemoglobin 30.4 pg (25.0-34.0); Mean Corpuscular Volume 89.4 fL (80.0-100.0); Monocytes # (auto) 0.49 K/uL (0.11-0.59); Monocytes % (auto) 10.1 %; Neutrophils # (auto) 3.19 K/uL (1.40-6.50); Neutrophils % (auto) 66.2 %; Platelet Count 242 K/uL (130-400); RDW Coefficient of Variation 12.4 % (11.5-14.5); RDW Standard Deviation 40.4 fL (36.4-46.3); Red Blood Count 3.85 M/uL (4.20-5.40); White Blood Count 4.83 K/ul (4.8-10.8)
[2024-04-14 07:46] LABS: BUN Creatinine Ratio 13.9 (10-20); Calcium 9.3 mg/dl (8.6-10.3); Creatinine Clr Calc Pharmacy 68.5 ml/min; Est GFR (Non-African American) 83.7 ml/min; Magnesium 2.1 mg/dl (1.7-2.4)
[2024-04-14] MEDS ORDERED: CLOPIDOGREL BISULFATE 75 MG TAB PO SCH (09:00)
--- NOTE | 2024-04-14 10:09 | Hospitalist Progress Note ---
Date of Service April 14, 2024 Assessment & Plan (1) Encephalopathy: Plan 73yo female with significant past medical history of MS, chronic diastolic heart failure, CAD, HTN, hyperlipidemia, DM, breast CA presented with fever, changes in mentation and found to have UTI. Febrile up to 39.6 on 04/12 and now resolved. Has undergone brain imaging- MRI depicts no overt evidence of acute ischemic stroke or other acute intracranial abnormality. Seen by neurology. Metabolic encephalopathy in setting of UTI- Seems resolved and back to baseline. Seen by neuro and recommendations noted. Negative stroke work up with negative MRI head, MRA head and neck, carotid doppler. Continue tele, ABx, BP and BG control. Continue frequent neurological assessments. If acute neurological decline, stat CT head. Seen by PT OT and recommendations noted. UTI- urine clx with GNB. Continue rocephin pending final urine clx results ?aspiration pneumonitis- on empiric Augmentin since admission Well controlled DM-2- A1c 6.4. Hold home OHA. Continue insulin. Carb controlled diet. Chronic diastolic CHF, h/o Takotsubo cardiomyopathy, non occlusive CAD- euvolemic. home aldactone on hold. Resume as indicated. HTN- stable. resume home amlodipine, toprol, valsartan with hold parameters. Hypothyroidism- TSH normal. On synthroid Hyponatremia- overall stable around 132. H/o recurrent left sided breast cancer s/p surgery and radiation s/p incomplete tamoxifen treatment- on remission Anxiety/mood disorder- stable on lexapro, gabapentin, baclofen DVT ppx- sc lovenox Dispo- Anticipate discharge home tomorrow pending final urine clx results Time spent- approx 40 mins Admission and Anticipated Discharge Date Admission Date: April 13, 2024 Subjective Patient was seen and examined at bedside. Sitting in chair conversing well. States back to baseline. No fever, chills, chest pain, shortness of breath, N/V. No cough. Asking when she can go home. States she has been ambulating independently here. Review of Systems Review of Systems: All systems reviewed & are unremarkable except as noted in Subjective Physical Exam Physical Exam: General: Sitting comfortably in chair, not in distress, on room air HEENT: ROC, MMM Chest: Clear breath sounds bilaterally, no wheezes or crackles CVS: Regular rate and rhythm, normal heart sounds, no murmur Abdomen: Soft, non tender, not distended, normal bowel sounds Neuro: Awake, alert, oriented, conversing well, non focal Extremities: No edema Results & Data Results & Data Vital Signs (Past 12 Hours) Vital Signs Temp Pulse Pulse Resp BP Pulse Ox O2 Del Method 04/14/24 07:50 62 04/14/24 07:19 37.0 C 69 18 144/82 H 93 Room Air 04/14/24 02:51 36.6 C 70 16 145/83 H 92 Room Air 04/13/24 22:52 36.6 C 76 16 138/81 93 Room Air 04/13/24 21:56 66 Laboratory Results Short CBC 04/14/24 Range/Units 06:48 WBC 4.83 (4.8-10.8) K/ul Hgb 11.7 L (12.0-16.0) g/dl Hct 34.4 L (37.0-47.0) % Plt Count 242 (130-400) K/uL BMP 04/14/24 06:48 Sodium 132 L Potassium 4.0 Chloride 100 Carbon Dioxide 24 BUN 10 Creatinine 0.72 Glucose 99 Calcium 9.3
[2024-04-14] MEDS: clonazePAM 1 MG TAB PO PRN (20:54)
[2024-04-14] MEDS: VALSARTAN 80 MG TAB PO SCH (20:54)
[2024-04-14] MEDS: METOPROLOL SUCC 25MG EXT REL TAB PO SCH (20:54)
[2024-04-15 06:22] LABS: Basophils # (auto) 0.04 K/uL (0.00-0.20); Eosinophils # (auto) 0.26 K/uL (0.00-0.50); Eosinophils % (auto) 6.4 %; Hematocrit (blood only) 34.1 % (37.0-47.0); Hemoglobin 11.5 g/dl (12.0-16.0); Immature Granulocytes # (auto) 0.02 K/uL (0.01-0.20); Immature Granulocytes % (auto) 0.5 %; Lymphocytes # (auto) 1.11 K/uL (1.20-3.40); Lymphocytes % (auto) 27.2 %; Mean Corpuscular Hemoglobin 30.3 pg (25.0-34.0); Mean Corpuscular Hgb Conc 33.7 g/dL (32.0-36.0); Monocytes # (auto) 0.38 K/uL (0.11-0.59); Monocytes % (auto) 9.3 %; Neutrophils # (auto) 2.27 K/uL (1.40-6.50); Neutrophils % (auto) 55.6 %; Platelet Count 218 K/uL (130-400); RDW Coefficient of Variation 12.4 % (11.5-14.5); RDW Standard Deviation 41.1 fL (36.4-46.3); Red Blood Count 3.79 M/uL (4.20-5.40); White Blood Count 4.08 K/ul (4.8-10.8)
[2024-04-15 06:37] LABS: BUN Creatinine Ratio 13.9 (10-20); Calcium 9.2 mg/dl (8.6-10.3); Creatinine Clr Calc Pharmacy 62.4 ml/min; Est GFR (African American) 86.7 ml/min; Est GFR (Non-African American) 74.8 ml/min; Potassium 3.7 mmol/L (3.5-5.1)
--- NOTE | 2024-04-15 08:42 | Hospitalist Progress Note ---
Date of Service April 15, 2024 Assessment & Plan (1) Encephalopathy: Plan 73yo female with significant past medical history of MS, chronic diastolic heart failure, CAD, HTN, hyperlipidemia, DM, breast CA presented with fever, changes in mentation and found to have UTI. Febrile up to 39.6 on 04/12 and now resolved. Has undergone brain imaging- MRI depicts no overt evidence of acute ischemic stroke or other acute intracranial abnormality. Seen by neurology. Metabolic encephalopathy in setting of UTI- Seems resolved and back to baseline. Seen by neuro and recommendations noted. Negative stroke work up with negative MRI head, MRA head and neck, carotid doppler. Continue tele, ABx, BP and BG control. Continue frequent neurological assessments. If acute neurological decline, stat CT head. Seen by PT OT and recommendations noted. UTI- urine clx with GNB. Continue rocephin pending final urine clx results ?aspiration pneumonitis- on empiric Augmentin since admission but with paucity of respiratory symptoms. Well controlled DM-2- A1c 6.4. Hold home OHA. Continue insulin. Carb controlled diet. Chronic diastolic CHF, h/o Takotsubo cardiomyopathy, non occlusive CAD- euvolemic. home aldactone on hold. Resume as indicated. HTN- stable. resume home amlodipine, toprol, valsartan with hold parameters. Hypothyroidism- TSH normal. On synthroid Hyponatremia- resolved, sodium 136 today H/o recurrent left sided breast cancer s/p surgery and radiation s/p incomplete tamoxifen treatment- on remission Anxiety/mood disorder- stable on lexapro, gabapentin, baclofen DVT ppx- sc lovenox Dispo- Pending final urine clx results Time spent- approx 35 mins Admission and Anticipated Discharge Date Admission Date: April 13, 2024 Subjective Patient was seen and examined at bedside. She feels back to baseline and ready to go home. She had a good night and slept well. No fever, chills, CP, SOB, N/V. She is hopeful to go home today. Review of Systems Review of Systems: All systems reviewed & are unremarkable except as noted in Subjective Physical Exam Physical Exam: General: Sitting comfortably in chair, not in distress, on room air HEENT: ROC, MMM Chest: Clear breath sounds bilaterally, no wheezes or crackles CVS: Regular rate and rhythm, normal heart sounds, no murmur Abdomen: Soft, non tender, not distended, normal bowel sounds Neuro: Awake, alert, oriented, conversing well, non focal Extremities: No edema Results & Data Results & Data Vital Signs (Past 12 Hours) Vital Signs Temp Pulse Pulse Resp BP Pulse Ox O2 Del Method 04/15/24 06:55 57 L 04/15/24 03:35 36.5 C 56 L 18 111/68 92 Room Air 04/14/24 23:00 36.5 C 56 L 18 128/72 92 Room Air 04/14/24 21:54 55 L Laboratory Results Short CBC 04/15/24 Range/Units 05:56 WBC 4.08 L (4.8-10.8) K/ul Hgb 11.5 L (12.0-16.0) g/dl Hct 34.1 L (37.0-47.0) % Plt Count 218 (130-400) K/uL BMP 04/15/24 05:56 Sodium 136 Potassium 3.7 Chloride 103 Carbon Dioxide 25 BUN 11 Creatinine 0.79 Glucose 95 Calcium 9.2
[2024-04-15] MEDS: amLODIPine BESYLATE 5 MG TAB PO SCH (09:07)
[2024-04-15] MEDS: POLYETHYLENE (MIRALAX) 17 GM PACK PO PRN (22:13)
[2024-04-16 06:40] LABS: Hematocrit (blood only) 31.8 % (37.0-47.0); Hemoglobin 10.8 g/dl (12.0-16.0); Mean Corpuscular Hemoglobin 30.3 pg (25.0-34.0); Mean Corpuscular Volume 89.1 fL (80.0-100.0); Mean Platelet Volume 9.2 fL (9.4-12.4); Platelet Count 232 K/uL (130-400); RDW Coefficient of Variation 12.3 % (11.5-14.5); RDW Standard Deviation 39.8 fL (36.4-46.3); Red Blood Count 3.57 M/uL (4.20-5.40); White Blood Count 4.14 K/ul (4.8-10.8)
[2024-04-16 06:56] LABS: BUN Creatinine Ratio 15.2 (10-20); Est GFR (Non-African American) 56.9 ml/min; Potassium 3.8 mmol/L (3.5-5.1)
[2024-04-16 07:45] VITALS: BP 113/71; PULSE 60; RESP 16; TEMP 98.4; O2SAT 93
--- NOTE | 2024-04-16 11:20 | Discharge Summary ---
Discharge Summary Date of Service April 16, 2024 Principal Dx & Hospital Course #1 = Principal Diagnosis (1) Encephalopathy: (2) Acute UTI (urinary tract infection): (3) Stroke-like symptoms: (4) Weakness: (5) Hyponatremia: (6) Hypokalemia: (7) Hypomagnesemia: (8) Aspiration into lower respiratory tract: Plan 73yo female with significant past medical history of MS, chronic diastolic heart failure, CAD, HTN, hyperlipidemia, DM, breast CA presented with fever, changes in mentation and found to have UTI. Febrile up to 39.6 on 04/12 and now resolved. Has undergone brain imaging- MRI depicts no overt evidence of acute ischemic stroke or other acute intracranial abnormality. Seen by neurology. Metabolic encephalopathy in setting of UTI- Seems resolved and back to baseline. Seen by neuro and recommendations noted. Negative stroke work up with negative MRI head, MRA head and neck, carotid doppler. Continue tele, ABx, BP and BG control. Continue frequent neurological assessments. If acute neurological decline, stat CT head. Seen by PT OT and recommendations noted. UTI- urine clx with GNB. Continue rocephin pending final urine clx results ?aspiration pneumonitis- on empiric Augmentin since admission but with paucity of respiratory symptoms. Well controlled DM-2- A1c 6.4. Hold home OHA. Continue insulin. Carb controlled diet. Chronic diastolic CHF, h/o Takotsubo cardiomyopathy, non occlusive CAD- euvolemic. home aldactone on hold. Resume as indicated. HTN- stable. resume home amlodipine, toprol, valsartan with hold parameters. Hypothyroidism- TSH normal. On synthroid Hyponatremia- resolved, sodium 136 today H/o recurrent left sided breast cancer s/p surgery and radiation s/p incomplete tamoxifen treatment- on remission Anxiety/mood disorder- stable on lexapro, gabapentin, baclofen DVT ppx- sc lovenox Dispo- Pending final urine clx results Pt seen and examined on the day of discharge. Her MS is back too baseline. She feels well. VSS. She is ambulating at her baseline. Pt discharged to home in stable condition. Notes For Next Care Provider Check BMP and CBC at hospital f/u appointment Medication Changes From Visit Take probiotic as directed Take the Augmentin (antibiotic) twice a day with food for 5 days for UTI Admission HPI Per Admitting Provider History obtained from patient, family, and records. Medical history significant for chronic diastolic heart failure (EF 60%, TTE 2023), history of Takotsubo cardiomyopathy, nonocclusive CAD, valvular heart disease (mild MR/TR, mild to moderate AR), hypertension, hyperlipidemia, hypothyroidism, multiple sclerosis, DM2 on oral medications, recurrent left breast cancer status post surgery status post radiation status post incomplete tamoxifen Rx, GERD, anxiety/mood disorder, past tobacco abuse. Last confinement April 2023 for Takotsubo cardiomyopathy. EF of 55 to 60% on TTE. Nonocclusive CAD on diagnostic cardiac catheterization. Patient noted to have bilateral leg weakness the last few days. No chest pain, no SOB, no abdominal pain, no diarrhea, no dysuria. Patient woke up with a headache yesterday morning. Around 6:30 PM last night, patient noted to be confused and having trouble finding words. Patient compliant with home aspirin Rx. Junky cough symptoms without SOB. Patient not sure about sick contacts. Admits to coughing with meals/water intake from time to time. Both legs more swollen than usual. IV ceftriaxone and Plavix administered at the ER. Patient speaking much better now as per family. 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 Admission Exam Per Admitting Provider General: awake, alert, no apparent distress Head: Normocephalic, atraumatic ENT: PERRL, EOMI, no pharyngeal exudate, mucous membranes moist Chest: Clear to auscultation, on room air, no adventitious breath sounds, + left-sided mastectomy scar, abdominal scar secondary to previous flap construction for breast Cardiac: Regular rate and rhythm, + murmur, no JVD, no carotid bruits, normal peripheral pulses, good capillary refill Abdominal: NABS x 4 quadrants, soft, nondistended, nontender to palpation, no rebound or guarding Extremities: Normal inspection, no peripheral edema or erythema, calfs nontender to palpation Psych: Normal mood and affect Neuro: AAO x 3, strength intact bilaterally and rated 5/5 in right lower extremity, 4/5 in the left, otherwise no motor deficits, speech is clear, no peripheral sensory deficits Discharge Exam General- adult female seen at bedside Head- atraumatic Eyes- PERRL, EOMI, anicteric ENT- oropharynx clear Neck- supple, no JVD, no adenopathy, no thyromegaly; carotids +2/2, no bruits appreciated Lungs- clear to auscultation and percussion Heart- regular rhythm; no murmur, no gallop, no rub appreciated Abdomen- normal bowel sounds, soft, nontender, no masses or hepatosplenomegaly Extremities- 1 + pretibial edema, no calf tenderness; Neuro- alert, oriented x 3; PERRL, EOMI; no facial palsy; some dysarthria; motor 3/5 bilaterally; no cogwheel rigidity; patellar DTRs +2/2; toes downgoing bilaterally; Skin- warm & dry Updated Medication List Medication Instructions Recorded Confirmed Type amlodipine 10 mg tablet 10 mg PO QAM 04/13/24 04/13/24 History aspirin 81 mg tablet,delayed 81 mg PO QAM 04/13/24 04/13/24 History release atorvastatin 40 mg tablet 40 mg PO DAILY 04/13/24 04/13/24 History baclofen 10 mg tablet 10 mg PO TID 04/13/24 04/13/24 History clonazepam 1 mg tablet 1 mg PO HS PRN Insomnia 04/13/24 04/13/24 History coenzyme Q10 100 mg capsule 100 mg PO DAILY 04/13/24 04/13/24 History (CoQ-10) conjugated estrogens 0.625 mg/gram 1 applic vaginal .WEEK 04/13/24 04/13/24 History vaginal cream (Premarin) d-mannose 500 mg capsule 500 mg PO BID 04/13/24 04/13/24 History dulaglutide 0.75 mg/0.5 mL 0.75 mg subcut .WEEK 04/13/24 04/13/24 History subcutaneous pen injector (Trulicity) escitalopram oxalate 20 mg tablet 20 mg PO QAM 04/13/24 04/13/24 History esomeprazole magnesium 40 mg 40 mg PO QAM 04/13/24 04/13/24 History capsule,delayed release gabapentin 600 mg tablet 600 mg PO HS 04/13/24 04/13/24 History metformin 1,000 mg tablet 1,000 mg PO BID 04/13/24 04/13/24 History metoprolol succinate 25 mg 12.5 mg PO AMHS 04/13/24 04/13/24 History tablet,extended release 24 hr spironolactone 25 mg tablet 25 mg PO QAM 04/13/24 04/13/24 History turmeric root extract 500 mg tablet 500 mg PO QPM 04/13/24 04/13/24 History valsartan 160 mg tablet 160 mg PO HS 04/13/24 04/13/24 History Lactobacillus rhamnosus GG 10 1 cap PO BID #10 caps 04/16/24 Rx billion cell capsule (Culturelle) amoxicillin 875 mg-potassium 1 tab PO BIDM #10 tabs 04/16/24 Rx clavulanate 125 mg tablet Hospital Stay Data Consultations 04/13/24 04:37 Consult Neurology Routine Diagnostic Imagining Performed 04/12/24 22:06 CT head/brain wo con Stat 04/13/24 00:21 MR brain wo con Stat 04/13/24 00:28 MR angio head wo con Stat 04/13/24 02:00 US venous doppler LE BI Stat 04/13/24 02:01 US carotid doppler BI Routine Discharge Instructions Given to Patient (Per Discharging Provider) Drink plently of fluids Finish the antibiotic course. I am glad you are feeling better. It has been my privilege caring for you. Please call with any questions. Sourav Jones DO, JED, FHM Total Time Total Time Spent Total Time Spent (In Minutes): 45 minutes spent in discharge planning for this patient
[2024-04-17 02:01] LABS: Babesia microti DNA Not Detected (Not Detected)
--- NOTE | 2024-04-17 15:22 | Discharge Summary ---
<Statement entered by Sourav Jones DO - 04/17/24 15:22> Made in error Discharge Summary Date of Service April 16, 2024 Principal Dx & Hospital Course #1 = Principal Diagnosis (1) Encephalopathy: (2) Acute UTI (urinary tract infection): (3) Stroke-like symptoms: (4) Weakness: (5) Hyponatremia: (6) Hypokalemia: (7) Hypomagnesemia: (8) Aspiration into lower respiratory tract: Plan 73yo female with significant past medical history of MS, chronic diastolic heart failure, CAD, HTN, hyperlipidemia, DM, breast CA presented with fever, changes in mentation and found to have UTI. Febrile up to 39.6 on 04/12 and now resolved. Has undergone brain imaging- MRI depicts no overt evidence of acute ischemic stroke or other acute intracranial abnormality. Seen by neurology. Metabolic encephalopathy in setting of UTI- Seems resolved and back to baseline. Seen by neuro and recommendations noted. Negative stroke work up with negative MRI head, MRA head and neck, carotid doppler. Continue tele, ABx, BP and BG control. Continue frequent neurological assessments. If acute neurological decline, stat CT head. Seen by PT OT and recommendations noted. UTI- urine clx with GNB. Continue rocephin pending final urine clx results ?aspiration pneumonitis- on empiric Augmentin since admission but with paucity of respiratory symptoms. Well controlled DM-2- A1c 6.4. Hold home OHA. Continue insulin. Carb controlled diet. Chronic diastolic CHF, h/o Takotsubo cardiomyopathy, non occlusive CAD- euvolemic. home aldactone on hold. Resume as indicated. HTN- stable. resume home amlodipine, toprol, valsartan with hold parameters. Hypothyroidism- TSH normal. On synthroid Hyponatremia- resolved, sodium 136 today H/o recurrent left sided breast cancer s/p surgery and radiation s/p incomplete tamoxifen treatment- on remission Anxiety/mood disorder- stable on lexapro, gabapentin, baclofen DVT ppx- sc lovenox Dispo- Pending final urine clx results Pt seen and examined on the day of discharge. Her MS is back too baseline. She feels well. VSS. She is ambulating at her baseline. Pt discharged to home in stable condition. Admission HPI Per Admitting Provider History obtained from patient, family, and records. Medical history significant for chronic diastolic heart failure (EF 60%, TTE 2023), history of Takotsubo cardiomyopathy, nonocclusive CAD, valvular heart disease (mild MR/TR, mild to moderate AR), hypertension, hyperlipidemia, hypothyroidism, multiple sclerosis, DM2 on oral medications, recurrent left breast cancer status post surgery status post radiation status post incomplete tamoxifen Rx, GERD, anxiety/mood disorder, past tobacco abuse. Last confinement April 2023 for Takotsubo cardiomyopathy. EF of 55 to 60% on TTE. Nonocclusive CAD on diagnostic cardiac catheterization. Patient noted to have bilateral leg weakness the last few days. No chest pain, no SOB, no abdominal pain, no diarrhea, no dysuria. Patient woke up with a headache yesterday morning. Around 6:30 PM last night, patient noted to be confused and having trouble finding words. Patient compliant with home aspirin Rx. Junky cough symptoms without SOB. Patient not sure about sick contacts. Admits to coughing with meals/water intake from time to time. Both legs more swollen than usual. IV ceftriaxone and Plavix administered at the ER. Patient speaking much better now as per family. 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 Medication Instructions Recorded Confirmed Type amlodipine 10 mg tablet 10 mg PO QAM 04/13/24 04/13/24 History aspirin 81 mg tablet,delayed 81 mg PO QAM 04/13/24 04/13/24 History release atorvastatin 40 mg tablet 40 mg PO DAILY 04/13/24 04/13/24 History baclofen 10 mg tablet 10 mg PO TID 04/13/24 04/13/24 History clonazepam 1 mg tablet 1 mg PO HS PRN Insomnia 04/13/24 04/13/24 History coenzyme Q10 100 mg capsule 100 mg PO DAILY 04/13/24 04/13/24 History (CoQ-10) conjugated estrogens 0.625 mg/gram 1 applic vaginal .WEEK 04/13/24 04/13/24 History vaginal cream (Premarin) d-mannose 500 mg capsule 500 mg PO BID 04/13/24 04/13/24 History dulaglutide 0.75 mg/0.5 mL 0.75 mg subcut .WEEK 04/13/24 04/13/24 History subcutaneous pen injector (Trulicity) escitalopram oxalate 20 mg tablet 20 mg PO QAM 04/13/24 04/13/24 History esomeprazole magnesium 40 mg 40 mg PO QAM 04/13/24 04/13/24 History capsule,delayed release gabapentin 600 mg tablet 600 mg PO HS 04/13/24 04/13/24 History metformin 1,000 mg tablet 1,000 mg PO BID 04/13/24 04/13/24 History metoprolol succinate 25 mg 12.5 mg PO AMHS 04/13/24 04/13/24 History tablet,extended release 24 hr spironolactone 25 mg tablet 25 mg PO QAM 04/13/24 04/13/24 History turmeric root extract 500 mg tablet 500 mg PO QPM 04/13/24 04/13/24 History valsartan 160 mg tablet 160 mg PO HS 04/13/24 04/13/24 History Lactobacillus rhamnosus GG 10 1 cap PO BID #10 caps 04/16/24 Rx billion cell capsule (Culturelle) amoxicillin 875 mg-potassium 1 tab PO BIDM #10 tabs 04/16/24 Rx clavulanate 125 mg tablet Hospital Stay Data Consultations 04/13/24 04:37 Consult Neurology Routine Diagnostic Imagining Performed 04/12/24 22:06 CT head/brain wo con Stat 04/13/24 00:21 MR brain wo con Stat 04/13/24 00:28 MR angio head wo con Stat 04/13/24 02:00 US venous doppler LE BI Stat 04/13/24 02:01 US carotid doppler BI Routine Discharge Instructions Given to Patient (Per Discharging Provider) Drink plently of fluids Finish the antibiotic course. I am glad you are feeling better. It has been my privilege caring for you. Plea se call with any questions. Sourav Jones DO, JED, FHM
== END 2024-04-16 12:38 | disposition home or self-care (01) | DRG 689 ==
LOC: ED 21:38 → SUATTDRO 04-13 01:58 → 2W 04-13 01:58